=== PATIENT | female | born 1950 | race Caucasian/White ===

== ENCOUNTER 2019-05-24 21:23 | Emergency (ER) | payer MEDICARE, BC, SELFPAY ==
[2019-05-24 21:27] VITALS: BP 171/105; PULSE 96; RESP 20; TEMP 36.4; O2SAT 99; BMI 38.0
[2019-05-24 22:12] VITALS: BP 148/88; PULSE 90; RESP 16; TEMP 36.9; O2SAT 93
[2019-05-24 22:16] VITALS: O2SAT 96
[2019-05-24 22:16] LABS: Basophils % 0.3 %; Eosinophils # 0.1 10^3/uL (0.0-0.8); Eosinophils % 0.6 %; Hematocrit 42.7 % (37.0-47.0); Hemoglobin 13.6 g/dL (11.5-15.3); Lymphocytes # 0.9 10^3/uL (0.8-4.8); Lymphocytes % 10.7 %; Mean Corpuscular HGB Conc 31.9 g/dL (30.0-36.0); Mean Corpuscular Hemoglobin 27.1 pg (28.0-34.0); Mean Corpuscular Volume 85.1 fL (81-99); Monocytes # 0.7 10^3/uL (0.2-0.9); Monocytes % 7.9 %; Neutrophils # 7.1 10^3/uL (1.8-7.7); Neutrophils % 80.3 %; Nucleated Red Blood Cells % 0 %; Platelet Count 212 10^3/cmm (130-400); Red Blood Count 5.02 10^6/uL (4.1-5.3); Red Cell Distribution Width 13.5 % (12.1-15.1); White Blood Count 8.8 10^3/uL (4.0-10.0)
--- NOTE | 2019-05-24 22:25 | W.ED.ABDPA2 ---
HPI - Abdominal Pain General: Chief Complaint: Abdominal Pain Stated Complaint: Sick Time Seen by Provider: 05/24/19 22:20 History of Present Illness: HPI narrative: Patient is a 69-year-old female comes in the ED with nausea, vomiting, right upper quadrant abdominal pain. The pain started on . She had multiple episodes of diarrhea on and Saturday. Patient went to urgent care today and was given a prescription for Zofran. She then had an episode of vomiting right after taking Zofran and eating a doughnut and decided to come to the ED for evaluation. Denies any blood in the diarrhea. Denies any shortness of breath, chest pain, headache, upper respiratory symptoms, dysuria, hematuria, numbness or tingling to extremities, weakness to extremities. Review of Systems General: Reports: 10 or more systems reviewed and unremarkable except in HPI and below PFSH ED PFSH: Statuses (acute, chronic, etc) shown below reflect problem list status as previously entered and may not be historically accurate Social History Smoking and tobacco status: never smoked Alcohol intake: never Physical Exam Narrative: EXAM NARRATIVE: Patient is a 69-year-old female that was sitting comfortably on bed. History of physical exam. She stated she wasn't in any acute pain currently and that her pain had gotten better. Const: COMMON NORMALS: oriented x3 HENMT: COMMON NORMALS: normocephalic HEAD & SCALP: normocephalic MOUTH: oral and palatal mucosa normal THROAT: posterior oropharynx normal and uvula midline Neck/C-Spine: COMMON NORMALS: supple GENERAL: Yes normal visual inspection Resp: COMMON NORMALS: normal respiratory effort, no retractions, no use of accessory muscles and clear to auscultation bilaterally AUSCULTATION: clear to auscultation bilaterally Cardio: COMMON NORMALS: regular rate, regular rhythm, S1 normal heart sound, S2 normal heart sound, no gallops, no clicks and peripheral pulses 2+ throughout RATE: regular rate RHYTHM: regular rhythm HEART SOUNDS: S1 normal, S2 normal and murmur (grade III) systolic PERIPHERAL PULSES: pulses 2+ throughout GI: COMMON NORMALS: normal to inspection, nondistended, normoactive bowel sounds, soft to palpation and no masses PALPATION: Yes soft and Yes tender Details: RUQ : COMMON NORMALS: Yes no CVA tenderness BLADDER/KIDNEY EXAM: Yes no CVA tenderness Back/Pelvis: COMMON NORMALS: no CVA tenderness Extremity: COMMON NORMALS: normal to inspection Neuro: COMMON NORMALS: oriented x3 GAIT: Yes normal gait Skin: COMMON NORMALS: no rashes or lesions noted GENERAL SKIN EXAM: no rashes or lesions noted Course ED course: CT of the abdomen and pelvis showed no acute findings. Following the ED patient's vomiting did stop and was controlled with Zofran. Patient was given IV fluids as well. Right upper quadrant pain improved after GI cocktail. Vital Signs: Vital signs: Vital Signs Temperature 98.5 F 05/24/19 22:12 Pulse Rate 80 05/25/19 02:32 Respiratory Rate 16 05/25/19 02:32 Blood Pressure 135/72 05/25/19 02:32 Pulse Oximetry 98 05/25/19 02:32 MDM - Abdominal Pain Lab Data: Attestation: I reviewed the patient's lab results. Labs: Lab Results 05/24/19 05/24/19 05/24/19 Range/Units 22:08 22:08 22:08 WBC 8.8 (4.0-10.0) 10^3/ uL RBC 5.02 (4.1-5.3) 10^6/u L Hgb 13.6 (11.5-15.3) g/dL Hct 42.7 (37.0-47.0) % MCV 85.1 (81-99) fL MCH 27.1 L (28.0-34.0) pg MCHC 31.9 (30.0-36.0) g/dL RDW 13.5 (12.1-15.1) % Plt Count 212 (130-400) 10^3/c mm MPV 10.0 (7.4-10.4) fL Neut % (Auto) 80.3 % Lymph % (Auto) 10.7 % [place] % (Auto) 7.9 % Eos % (Auto) 0.6 % Baso % (Auto) 0.3 % Neut # (Auto) 7.1 (1.8-7.7) 10^3/u L Lymph # (Auto) 0.9 (0.8-4.8) 10^3/u L [place] # (Auto) 0.7 (0.2-0.9) 10^3/u L Eos # (Auto) 0.1 (0.0-0.8) 10^3/u L Baso # (Auto) 0.0 (0.0-0.1) 10^3/u L Nucleated RBC % (a uto) 0 % Nucleated RBCs # 0.0 /100WBC Sodium 147 H (136-145) mmol/L Potassium 3.7 (3.5-5.1) mmol/L Chloride 104 (98-107) mmol/L Carbon Dioxide 27 (22-29) mmol/L Anion Gap 19.7 H (5-19) BUN 14 (8-23) mg/dL Creatinine 0.9 (0.5-0.9) mg/dL Glucose 117 H (74-106) mg/dL Calcium 9.6 (8.8-10.2) mg/Dl Total Bilirubin 1.2 (0.15-1.2) mg/dL AST 81 H (0-32) U/L ALT 38 H (0-33) U/L Alkaline Phosphata se 127 H (35-105) IU/L Total Protein 7.5 (6.6-8.7) g/dL Albumin 4.3 (3.5-5.2) g/dL Globulin 3.2 (1.3-4.6) g/dL Lipase (13-60) U/L Urine Color (Yellow) Urine Appearance (CLEAR) Urine pH (5-7) Ur Specific Gravit y (1.005-1.030) Urine Protein (Negative) Urine Glucose (UA) (Normal) Urine Ketones (Negative) Urine Occult Blood (Negative) Urine Nitrate (Negative) Urine Bilirubin (NEGATIVE) Urine Urobilinogen (Negative) mg/dL Ur Leukocyte Marivel ase (Negative) H. pylori IgG Anti body Negative (Negative) 05/24/19 05/25/19 Range/Units 22:08 00:58 WBC (4.0-10.0) 10^3/ uL RBC (4.1-5.3) 10^6/u L Hgb (11.5-15.3) g/dL Hct (37.0-47.0) % MCV (81-99) fL MCH (28.0-34.0) pg MCHC (30.0-36.0) g/dL RDW (12.1-15.1) % Plt Count (130-400) 10^3/c mm MPV (7.4-10.4) fL Neut % (Auto) % Lymph % (Auto) % [place] % (Auto) % Eos % (Auto) % Baso % (Auto) % Neut # (Auto) (1.8-7.7) 10^3/u L Lymph # (Auto) (0.8-4.8) 10^3/u L [place] # (Auto) (0.2-0.9) 10^3/u L Eos # (Auto) (0.0-0.8) 10^3/u L Baso # (Auto) (0.0-0.1) 10^3/u L Nucleated RBC % (a uto) % Nucleated RBCs # /100WBC Sodium (136-145) mmol/L Potassium (3.5-5.1) mmol/L Chloride (98-107) mmol/L Carbon Dioxide (22-29) mmol/L Anion Gap (5-19) BUN (8-23) mg/dL Creatinine (0.5-0.9) mg/dL Glucose (74-106) mg/dL Calcium (8.8-10.2) mg/Dl Total Bilirubin (0.15-1.2) mg/dL AST (0-32) U/L ALT (0-33) U/L Alkaline Phosphata se (35-105) IU/L Total Protein (6.6-8.7) g/dL Albumin (3.5-5.2) g/dL Globulin (1.3-4.6) g/dL Lipase 64 H (13-60) U/L Urine Color Yellow (Yellow) Urine Appearance Clear (CLEAR) Urine pH 6 (5-7) Ur Specific Gravit y 1.010 (1.005-1.030) Urine Protein Neg (Negative) Urine Glucose (UA) Norm (Normal) Urine Ketones Negative (Negative) Urine Occult Blood Neg (Negative) Urine Nitrate Negative (Negative) Urine Bilirubin Neg (NEGATIVE) Urine Urobilinogen Norm (Negative) mg/dL Ur Leukocyte Marivel ase Negative (Negative) H. pylori IgG Anti body (Negative) Discharge Plan Discharge Patient Disposition: Home, Self-Care Clinical Impression: Nausea & vomiting Qualifiers: Vomiting type: unspecified Vomiting Intractability: non-intractable Qualified Code(s): R11.2 - Nausea with vomiting, unspecified Abdominal pain Qualifiers: Abdominal location: right upper quadrant Qualified Code(s): R10.11 - Right upper quadrant pain Condition: Stable Prescriptions: No Action No Known Home Medications RF: 0 ondansetron HCl [Zofran] 4 mg tablet 4 mg PO Q6H PRN (Reason: nausea and vomiting) Qty: 20 RF: 0 Discharge Orders: Discharge Order (Routine); Ordered 05/25/19 Ordered By: Doug Ramirez Referrals: , [Primary Care Provider] - David John MD [Family Provider] - Discharge Diet: Advance as tolerated Discharge Activity: Resume usual activity Patient Instructions: Abdominal Pain (ED) Activity Restrictions/Additional Instructions: Follow-up with the primary care doctor in 5-7 days for reevaluation. Take previously prescribed Zofran as needed for nausea. Take Maalox or Pepto-Bismol for indigestion or epigastric pain. Drink plenty of fluids. 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
[2019-05-24 22:33] LABS: Alanine Aminotransferase 38 U/L (0-33); Albumin Level 4.3 g/dL (3.5-5.2); Alkaline Phosphatase 127 IU/L (35-105); Anion Gap 19.7 (5-19); Aspartate Amino Transferase 81 U/L (0-32); Blood Urea Nitrogen 14 mg/dL (8-23); Calcium 9.6 mg/Dl (8.8-10.2); Carbon Dioxide 27 mmol/L (22-29); Chloride 104 mmol/L (98-107); Globulin 3.2 g/dL (1.3-4.6); Glucose 117 mg/dL (74-106); Potassium 3.7 mmol/L (3.5-5.1); Sodium 147 mmol/L (136-145); Total Bilirubin 1.2 mg/dL (0.15-1.2); Total Protein 7.5 g/dL (6.6-8.7)
--- NOTE | 2019-05-24 23:20 | CTR_ITS ---
PROCEDURE INFORMATION: Exam: CT Abdomen And Pelvis With Contrast Exam date and time: 05/24/2019 11:28 PM Age: 69 years old Clinical indication: Abdominal pain; Localized; Right upper quadrant (ruq); Additional info: Ruq pain, nausea and vomiting TECHNIQUE: Imaging protocol: Computed tomography of the abdomen and pelvis with intravenous contrast. Total DLP: 1474.11 mGy-cm Radiation optimization: All CT scans at this facility use at least one of these dose optimization techniques: automated exposure control; mA and/or kV adjustment per patient size (includes targeted exams where dose is matched to clinical indication); or iterative reconstruction. Contrast material: OMNIPAQUE 300; Contrast volume: 95 ml; Contrast route: IV; COMPARISON: CT abdomen pelvis wo con [id number] 12/09/2018 9:51 AM FINDINGS: Liver: Normal. No mass. Gallbladder and bile ducts: Gallbladder is absent. Pancreas: Normal. No ductal dilation. Spleen: Normal. No splenomegaly. Adrenals: Normal. No mass. Kidneys and ureters: Left kidney nonobstructive calyceal stone. Stomach and bowel: Unremarkable. No obstruction. No mucosal thickening. Appendix: No evidence of appendicitis. Intraperitoneal space: Unremarkable. No free air. No significant fluid collection. Vasculature: Unremarkable. No abdominal aortic aneurysm. Lymph nodes: Unremarkable. No enlarged lymph nodes. Bladder: Unremarkable as visualized. Reproductive: Unremarkable as visualized. Bones/joints: Unremarkable. No acute fracture. Soft tissues: Unremarkable. CT/CT abdomen pelvis w con* [id number] IMPRESSION: 1. Negative for acute inflammatory process. 2. Left kidney nonobstructive calyceal stone. 3. Gallbladder is absent. Radiation Dose CTDIVOL = (mGy): DLP = 1474.11 (mGy-cm)
[2019-05-24] MEDS: sodium chloride 0.9% 1,000 ML 750 ML IV (23:47)
[2019-05-24 23:49] VITALS: BP 149/86; PULSE 74; RESP 16; O2SAT 94
[2019-05-24] MEDS: ondansetron 2 mg/ML SDV 2 mL 4 MG IVP (23:49)
[2019-05-24] MEDS: iohexol 300 mg/mL 100 mL Btl IV (23:51)
[2019-05-25 00:28] VITALS: BP 144/76; PULSE 84; RESP 18; O2SAT 97
[2019-05-25 00:29] LABS: Lipase 64 U/L (13-60)
[2019-05-25 00:53] LABS: H. Pylori IgG Antibody Negative (Negative)
[2019-05-25 00:57] VITALS: BP 148/71; PULSE 82; RESP 16; O2SAT 98
[2019-05-25 01:11] VITALS: BP 147/70; PULSE 76; RESP 16; O2SAT 97
[2019-05-25 01:11] LABS: Add Urine Microscopic? NO
[2019-05-25 01:28] LABS: Bilirubin Urine Neg (NEGATIVE); Blood Urine Neg (Negative); Glucose Urine UA Norm (Normal); Ketones Urine Negative (Negative); Leukocyte Esterase Urine Negative (Negative); Nitrate Urine Negative (Negative); Protein Urine Neg (Negative); Urine Appearance Clear (CLEAR); Urine Color Yellow (Yellow); Urobilinogen Urine Norm (Negative); pH Urine 6 (5-7)
[2019-05-25 01:45] VITALS: BP 132/75; PULSE 78; RESP 16; O2SAT 96
[2019-05-25 02:32] VITALS: BP 135/72; PULSE 80; RESP 16; O2SAT 98
== END 2019-05-25 02:33 | disposition home or self-care (01) ==
PROVIDERS: Family Medicine; Emergency Provider Physician Assistant; Family Provider Family Medicine
DX: R10.11 Right upper quadrant pain (principal); R11.2 Nausea with vomiting, unspecified
CPT/HCPCS: 74177; 80053; 81003; 83690; 85025; 86677; 96360; 96374; 99282; J2405; J7030; Q9967

== ENCOUNTER → 2020-12-13 09:44 | Outpatient (BNVA) | payer MEDICARE, BC, SELFPAY | PROVIDERS: Family Provider Family Medicine; PCP Family Medicine; Visit Provider Orthopaedic Surgery | DX: M17.11 Unilateral primary osteoarthritis, right knee (principal) | CPT/HCPCS: 73560; 73565 ==

== ENCOUNTER → 2020-12-19 11:42 | Outpatient (BNVA) | payer MEDICARE, BC, SELFPAY | PROVIDERS: Family Provider Family Medicine; PCP Family Medicine; Visit Provider Family Medicine | DX: Z13.220 Encounter for screening for lipoid disorders (principal); Z13.6 Encounter for screening for cardiovascular disorders; Z76.89 Persons encountering health services in other specified circumstances; R10.11 Right upper quadrant pain; H81.10 Benign paroxysmal vertigo, unspecified ear; L57.0 Actinic keratosis; M79.604 Pain in right leg; R01.1 Cardiac murmur, unspecified; Z68.37 Body mass index [BMI] 37.0-37.9, adult; Z71.89 Other specified counseling | CPT/HCPCS: 80053; 84443; 85025 ==

== ENCOUNTER 2020-12-29 10:21 | Outpatient (RCR) | payer MEDICARE, BC, SELFPAY | END 2021-01-10 23:59 | disposition home or self-care (01) | LOC: SPT 10:21 | PROVIDERS: PCP Family Medicine; Visit Provider Family Medicine | DX: H81.10 Benign paroxysmal vertigo, unspecified ear (principal) | CPT/HCPCS: 95992; 97162 ==

== ENCOUNTER 2021-01-11 12:29 | Outpatient (CLI) | payer MEDICARE, BC, SELFPAY ==
--- NOTE | 2021-01-11 13:30 | USCV_ITS ---
Carolina Lockhart Age: 70 Gender: F : 1950 Exam Date: 01/11/2021 13:08 Ordering Phys: Drew Moscoso DO Technologist: Silva Cazares Exam Location: [facility] – [place] Indication: CHEST PAIN BP: / HR: 69 Rhythm: Sinus Technical Quality: Adequate MEASUREMENTS (Male / Female) Normal Values 2D ECHO LV Diastolic Diameter PLAX 3.7 cm 4.2 - 5.9 / 3.9 - 5.3 cm LV Systolic Diameter PLAX 2.2 cm IVS Diastolic Thickness 1.1 cm 0.6 - 1.0 / 0.6 - 0.9 cm IVS Systolic Thickness 1.1 cm LVPW Diastolic Thickness 1.3 cm 0.6 - 1.0 / 0.6 - 0.9 cm LVPW Systolic Thickness 1.6 cm LVOT Diameter 2.1 cm LV Ejection Fraction 2D Teich 73.9 % LV Ejection Fraction MOD 2C 54.6 % LV Ejection Fraction 2C AL 58.7 % LA Diameter 3.0 cm LA Width 3.2 cm LA Height 4.0 cm RA Width 3.5 cm RA Height 2.4 cm Aorta at Sinotubular Diameter 2.9 cm M-MODE LV Diastolic Diameter MM 5.1 cm 4.2 - 5.9 / 3.9 - 5.3 cm LV Systolic Diameter MM 3.3 cm LV Ejection Fraction MM Teich 64.2 % IVS Diastolic Thickness MM 1.2 cm 0.6 - 1.0 / 0.6 - 0.9 cm IVS Systolic Thickness MM 1.8 cm LVPW Diastolic Thickness MM 1.3 cm 0.6 - 1.0 / 0.6 - 0.9 cm LVPW Systolic Thickness MM 1.7 cm Aortic Annulus Diameter 2.8 cm LA Ao Ratio MM 1.2 MV E Point Septal Separation 0.3 cm DOPPLER AV Peak Velocity 260.0 cm/s LVOT Peak Velocity 138.0 cm/s AV Area Cont Eq vti 1.8 cm squared AV Area Cont Eq pk 1.8 cm squared MV Area PHT 3.0 cm squared Mitral E to A Ratio 0.9 MV E' Velocity 67.5 cm/s Mitral E to MV E' Ratio 18.4 Mitral E to LV E' Lateral Ratio 16.3 Mitral E to LV E' Septal Ratio 21.1 TR Peak Velocity 245.2 cm/s TR Peak Gradient 24.0 mmHg TR Mean Velocity 191.0 cm/s TR Mean Gradient 16.4 mmHg TR Velocity Time Integral 78.3 cm TV Peak E Velocity 67.0 cm/s Right Atrial Pressure 3.0 mmHg Pulmonary Artery Systolic Pressu 27.0 mmHg PV Peak Velocity 108.0 cm/s RV Acceleration Time 0.1 s RV Ejection Time 0.3 s RV AcT/ET 0.3 FINDINGS Left Ventricle Normal left ventricular size, increased left ventricular wall thickness and systolic function with no regional wall motion abnormalities. Left ventricular ejection fraction is estimated at 65 %. Grade II diastolic dysfunction, moderately elevated filling pressures. Right Ventricle Normal right ventricular size and systolic function, RVSP 35 mmHg. Right Atrium Mildly increased right atrial size. Left Atrium Moderately increased left atrial size. Mitral Valve Severe mitral annular calcification. Thickened mitral valve. No mitral valve stenosis. Mild mitral valve regurgitation. Aortic Valve Moderately thickened and calcified aortic valve. Aortic valve visually appears moderately stenotic. Mild aortic valve stenosis, peak velocity 2.6 m/sec, peak gradient 27 mm Hg, mean gradient 15.4 mmHg, JULIANNE 1.8 cm squared. [id number] aortic valve regurgitation. Tricuspid Valve Structurally normal tricuspid valve. Mild tricuspid valve regurgitation. Pulmonic Valve Pulmonic valve not well visualized. No pulmonary valve stenosis. Pericardium No pericardial effusion. Aorta Normal size aortic root. Normal sized inferior vena cava. CONCLUSIONS 1. Normal left ventricular size, increased left ventricular wall thickness and systolic function with no regional wall motion abnormalities. Left ventricular ejection fraction is estimated at 65 %. Grade II diastolic dysfunction, moderately elevated filling pressures. 2. Aortic valve visually appears moderately stenotic. Mild aortic valve stenosis, peak velocity 2.6 m/sec, peak gradient 27 mm Hg, mean gradient 15.4 mmHg, JULIANNE 1.8 cm squared. Tvjx-ud-tmwlzhfn aortic valve regurgitation. 3. Mild mitral and tricuspid valve regurgitation. 4. Moderately increased left atrial size. 5. Mild pulmonary hypertension with pulmonary artery pressure estimated at 35 mm Hg. 6. When compared to previous echocardiogram dated 10/09/2016, there is aortic valve stenosis now. Jessica Pratt MD (Electronically Signed) Final Date: 12 January 2021 21:20 S
== END 2021-01-11 12:30 | disposition home or self-care (01) ==
PROVIDERS: PCP Family Medicine; Visit Provider Family Medicine
DX: R01.1 Cardiac murmur, unspecified (principal); R07.9 Chest pain, unspecified; I35.0 Nonrheumatic aortic (valve) stenosis; I34.0 Nonrheumatic mitral (valve) insufficiency; I07.1 Rheumatic tricuspid insufficiency; I27.20 Pulmonary hypertension, unspecified
CPT/HCPCS: 93306

== ENCOUNTER 2021-07-12 00:32 | Emergency (ER) | payer MEDICARE, BC, SELFPAY ==
[2021-07-12 00:39] VITALS: BP 146/85; PULSE 69; RESP 18; TEMP 36.6; O2SAT 97; BMI 36.3
--- NOTE | 2021-07-12 01:03 | XRR_ITS ---
PROCEDURE INFORMATION: Exam: XR Chest Exam date and time: 07/12/2021 1:03 AM Age: 71 years old Clinical indication: Patient HX: Dizziness with n/v. ; Additional info: Dizzy TECHNIQUE: Imaging protocol: XR of the chest. Views: 1 view. COMPARISON: CR Chest 1 [place] [id number] 06/21/2017 4:51 PM FINDINGS: Lungs: Moderately hyperaerated lungs consistent with deep inspiratory effort vs significant reactive airway disease vs moderate COPD . Pleural spaces: Unremarkable. No pleural effusion. No pneumothorax. Heart/Mediastinum: Unremarkable. No cardiomegaly. Bones/joints: Moderate thoracic spondylosis. Bilateral mild primary glenohumeral osteoarthritis. Left calcific tendinosis. XR/XR chest 1V portable [id number] IMPRESSION: Moderately hyperaerated lungs consistent with deep inspiratory effort vs significant reactive airway disease vs moderate COPD .
--- NOTE | 2021-07-12 01:03 | CTR_ITS ---
PROCEDURE INFORMATION: Exam: CT Head Without Contrast Exam date and time: 07/12/2021 1:03 AM Age: 71 years old Clinical indication: Patient HX: C/O worsening dizziness with n/v. History of bppv. ; Additional info: Dizzy TECHNIQUE: Imaging protocol: Computed tomography of the head without contrast. Radiation optimization: All CT scans at this facility use at least one of these dose optimization techniques: automated exposure control; mA and/or kV adjustment per patient size (includes targeted exams where dose is matched to clinical indication); or iterative reconstruction. COMPARISON: No relevant prior studies available. RADIATION DOSE METRICS: Total DLP (mGy-cm): 764.45 FINDINGS: Brain: Normal. No hemorrhage. Unremarkable white matter. No mass effect. Cerebral ventricles: No ventriculomegaly. Paranasal sinuses: Visualized sinuses are unremarkable. No fluid levels. Mastoid air cells: Visualized mastoid air cells are well aerated. Vasculature: Moderate calcified intracranial atherosclerotic vessel disease. Bones/joints: Unremarkable. No acute fracture. Soft tissues: Unremarkable. CT/CT head wo con* [id number] IMPRESSION: No acute intracranial findings.
--- NOTE | 2021-07-12 01:03 | ECG_ITS ---
[facility] Test Date: 2021-07-12 Pat Name: Carolina Lockhart Department: Room: Gender: Female K[employer]: : 1950 Requested By: Mari Brower Order Number: [id number] Shanna MD: Pepe Rao M.D. Measurements Intervals [place] Rate: 62 P: 56 WA: 146 QRS: 21 QRSD: 94 T: 55 QT: 445 QTc: 454 Interpretive Statements SINUS RHYTHM Compared to ECG 06/21/2017 19:33:29 No significant changes Electronically Signed On 07-12-2021 16:01:09 CHANNEL LAYER by Pepe Rao M.D. [email or web address]
--- NOTE | 2021-07-12 01:03 | CTR_ITS ---
PROCEDURE INFORMATION: Exam: CT Angiography Head With Contrast, Arteriography Exam date and time: 07/12/2021 1:03 AM Age: 71 years old Clinical indication: Dizziness and giddiness; Patient HX: C/O worsening dizziness with n/v. History of bppv. ; Additional info: Dizzy TECHNIQUE: Imaging protocol: Computed tomography angiography of the head with contrast. Exam focused on the arteries. 3D rendering (Not supervised by radiologist): MIP and/or 3D reconstructed images were created by the technologist. Radiation optimization: All CT scans at this facility use at least one of these dose optimization techniques: automated exposure control; mA and/or kV adjustment per patient size (includes targeted exams where dose is matched to clinical indication); or iterative reconstruction. Contrast material: OMNI 350; Contrast volume: 95 ml; Contrast route: INTRAVENOUS (IV); COMPARISON: CT head wo con* [id number] 07/12/2021 1:51 AM RADIATION DOSE METRICS: Total DLP (mGy-cm): 2092.92 FINDINGS: ANTERIOR CIRCULATION: Right internal carotid artery: Calcified plaque in the right cavernous ICA without significant stenosis. Right middle cerebral artery: Unremarkable. No occlusion or significant stenosis. No aneurysm. Right anterior cerebral artery: Dominant right A1 segment. Probable aplastic left A1 segment. Normal variant. Anterior communicating artery: Patent anterior communicating artery. Left internal carotid artery: Calcified plaque in the left cavernous ICA without significant stenosis. Left middle cerebral artery: Unremarkable. No occlusion or significant stenosis. No aneurysm. Left anterior cerebral artery: See Right anterior cerebral artery finding. POSTERIOR CIRCULATION: Right vertebral artery: Unremarkable. No occlusion or significant stenosis. No aneurysm. Left vertebral artery: Unremarkable. No occlusion or significant stenosis. No aneurysm. Basilar artery: Unremarkable. No occlusion or significant stenosis. No aneurysm. Right posterior cerebral artery: Unremarkable. No occlusion or significant stenosis. No aneurysm. Left posterior cerebral artery: Unremarkable. No occlusion or significant stenosis. No aneurysm. Veins: Venous contamination at the level of the [place]. Brain: No definite mass, mass effect, or midline shift. Cerebral ventricles: No ventriculomegaly. Bones/joints: Unremarkable. No acute fracture. Soft tissues: Unremarkable. PROCEDURE INFORMATION: Exam: CT Angiography Neck With Contrast Exam date and time: 07/12/2021 1:03 AM Age: 71 years old Clinical indication: Dizziness and giddiness; Patient HX: C/O worsening dizziness with n/v. History of bppv. ; Additional info: Dizzy TECHNIQUE: Imaging protocol: Computed tomography angiography of the neck with contrast. 3D rendering (Not supervised by radiologist): MIP and/or 3D reconstructed images were created by the technologist. Radiation optimization: All CT scans at this facility use at least one of these dose optimization techniques: automated exposure control; mA and/or kV adjustment per patient size (includes targeted exams where dose is matched to clinical indication); or iterative reconstruction. Contrast material: OMNI 350; Contrast volume: 95 ml; Contrast route: INTRAVENOUS (IV); COMPARISON: CT head wo con* [id number] 07/12/2021 1:51 AM RADIATION DOSE METRICS: Total DLP (mGy-cm): 2091.92 FINDINGS: Right common carotid artery: No stenosis. No dissection or occlusion. Right internal carotid artery: No ICA stenosis by NASCET/SRU criteria. Right carotid bifurcation calcified plaque. S-shaped tortuosity of the right ICA Right external carotid artery: No occlusion or stenosis of the origin. Left common carotid artery: No stenosis. No dissection or occlusion. Left internal carotid artery: S-shaped tortuosity of the left ICA. Left external carotid artery: No occlusion or stenosis of the origin. Left callosomarginal artery: Moderate to severe multilevel spine degenerative changes including degenerative disc disease, spondylosis and facet degenerative changes. Right vertebral artery: Dominant right vertebral artery with patent left vertebral artery. Left vertebral artery: No stenosis. No dissection or occlusion. Aorta: Direct origin of the left vertebral artery from the aortic arch which is a normal variant seen in 1% of the population. Calcification of the thoracic aorta and/or great vessels consistent with atherosclerotic vessel disease. Lymph nodes: Calcified right hilar nodes and/or mediastinal nodes and/or lung granulomas consistent with old granulomatous disease. Soft tissues: Normal. No significant soft tissue swelling. Bones/joints: No acute fracture. Multilevel disc findings: Moderate thoracic spondylosis. CT/CT angio headneck* [id number] IMPRESSION: 1. No large vessel occlusion. 2. The right A1 segment supplies both anterior cerebral arteries with probable aplastic left A1 segment. Normal variant. IMPRESSION: 1. Dominant right vertebral artery with patent left vertebral artery. 2. No ICA stenosis by NASCET/SRU criteria. REFERENCES: NASCET CRITERIA. The degree of internal carotid artery stenosis is based on NASCET criteria. Normal is no stenosis. Mild is less than 50% stenosis. Moderate is 50-69% stenosis. Severe is 70% to 99% stenosis. Total occlusion is no detectable patent lumen.
[2021-07-12] MEDS: sodium chloride 0.9% 500 ML 999 ML IV (01:05)
[2021-07-12] MEDS: meclizine 25 mg tablet 50 MG PO (01:05)
[2021-07-12] MEDS: ondansetron 2 mg/ML SDV 2 mL 4 MG IVP (01:05)
[2021-07-12 01:08] LABS: Basophils # 0.1 10^3/uL (0.0-0.1); Eosinophils # 0.1 10^3/uL (0.0-0.8); Eosinophils % 1.7 %; Hematocrit 41.6 % (37.0-47.0); Hemoglobin 12.9 g/dL (11.5-15.3); Lymphocytes # 1.1 10^3/uL (0.8-4.8); Lymphocytes % 13.8 %; Mean Corpuscular Hemoglobin 27.6 pg (28.0-34.0); Mean Corpuscular Volume 88.9 fl (81-99); Mean Platelet Volume 9.9 fL (7.4-10.4); Monocytes # 0.6 10^3/uL (0.2-0.9); Monocytes % 7.6 %; Neutrophils % 75.6 %; Nucleated Red Blood Cells % 0 %; Platelet Count 192 10^3/cmm (130-400); Red Blood Count 4.68 10^6/uL (4.1-5.3); Red Cell Distribution Width 13.5 % (12.1-15.1); White Blood Count 7.7 10^3/uL (4.0-10.0)
[2021-07-12 01:30] LABS: Alanine Aminotransferase 10 U/L (0-33); Albumin Level 4.2 g/dL (3.5-5.2); Alkaline Phosphatase 88 IU/L (35-105); Anion Gap 12.5 (5-19); Aspartate Amino Transferase 23 U/L (0-32); Blood Urea Nitrogen 10 mg/dL (8-23); Calcium 8.6 mg/dL (8.5-10.5); Carbon Dioxide 31 mmol/L (22-29); Chloride 99 mmol/L (98-107); Globulin 2.5 g/dL (1.3-4.6); Glucose 115 mg/dL (65-115); Osmolality Calculated 286 mOsm/kg (285-295); Potassium 4.5 mmol/L (3.5-5.1); Sodium 138 mmol/L (136-145); Total Bilirubin 0.6 mg/dL (0.15-1.2); Total Protein 6.7 g/dL (6.6-8.7)
[2021-07-12] MEDS: iohexol 350 mg/mL 100 mL Btl IV (01:51)
--- NOTE | 2021-07-12 01:57 | ED_ITS ---
HPI - Dizziness General: Chief Complaint: Dizziness Stated Complaint: N/V dizzy Time Seen by Provider: 07/12/21 00:56 Source: patient Mode of arrival: ambulatory Limitations: no limitations History of Present Illness: HPI Narrative: 71-year-old female states that she went to bed at 8 PM and woke up and was having some vertigo along with ataxia. States she has had some ongoing vertigo for the last 2 days and was what much worse when she woke up at around 11. States she has been having a hard time walking without feeling like she is going to fall. States it is much worse with sudden movements improved with rest. Denies headache denies any head injuries Associated symptoms: Denies chest pain, chills, headache(s), nausea or vomiting Review of Systems Const: Denies: fever(s), chills, body aches or change in appetite Eyes: Denies: blurry vision or eye discomfort ENMT: Denies: throat pain or dental pain Card: Denies: chest pain Resp: Denies: dyspnea GI: Denies: abdominal pain, nausea, vomiting or diarrhea : Denies: dysuria Musc: Denies: neck pain or back pain Skin/Breast: Denies: rash Neuro: Reports: vertigo; Denies: headache(s) Psych: Denies: depression Ezio/Lymph: Denies: easy bruising All/Imm: Denies: urticaria PFSH ED PFSH: Social History Alcohol intake: never Physical Exam Const: COMMON NORMALS: patient oriented x3 and healthy appearing HENMT: COMMON NORMALS: normocephalic and atraumatic HEAD & SCALP: normoc ephalic and atraumatic Eye: COMMON NORMALS: Equal, round and reactive pupils present and EOMs intact bilaterally PUPIL: Yes Equal, round and reactive pupils present Neck/C-Spine: COMMON NORMALS: full ROM and supple Chest: COMMONS NORMALS: normal inspection of the chest and normal palpation of entire chest wall Resp: COMMON NORMALS: normal respiratory effort, No retractions, No use of accessory muscles and clear to auscultation bilaterally AUSCULTATION: clear to auscultation bilaterally Cardio: COMMON NORMALS: regular rate, regular rhythm and No murmurs present (Cardio) RATE: regular rate RHYTHM: regular rhythm GI: COMMON NORMALS: Normal to inspection, nondistended, normoactive bowel sounds present, Soft to palpation, non-tender and no masses PALPATION: Yes Soft to palpation Extremity: COMMON NORMALS: normal to inspection and full ROM Neuro: COMMON NORMALS: patient oriented x3, moves all extremities and no focal motor deficits GAIT: Yes Ataxic gait present MOTOR EXAM: 5/5 motor strength present throughout Psych: COMMON NORMALS: mental status grossly normal, Normal thought process present and cooperative THOUGHT PROCESS: Normal thought process present Skin: COMMON NORMALS: no rashes or lesions noted and no wounds GENERAL SKIN EXAM: no rashes or lesions noted Course Vital Signs: Vital signs: Vital Signs Temperature 98 F 07/12/21 00:39 Pulse Rate 69 07/12/21 00:39 Respiratory Rate 18 07/12/21 00:39 Blood Pressure 146/85 07/12/21 00:39 Pulse Oximetry 97 07/12/21 00:39 MDM - Dizziness Medical Decision Making Patient presents here with vertigo her symptoms have improved here with meclizine I ambulated her in the room and she ambulated well no ataxia. Due to her age I did offer her admission for an MRI states she felt improved and would just follow-up with her primary care doctor and return if she has worsening will place her on meclizine at home she is to follow-up with This week and return if worsening she understands agrees to plan. Lab Data : 07/12/21 01:01 07/12/21 01:01 Radiology Impressions Chest X-Ray 07/12/21 01:03 IMPRESSION: Moderately hyperaerated lungs consistent with deep inspiratory effort vs significant reactive airway disease vs moderate COPD . Head CT 07/12/21 01:03 IMPRESSION: No acute intracranial findings. Head/Neck CTA 07/12/21 01:03 IMPRESSION: 1. No large vessel occlusion. 2. The right A1 segment supplies both anterior cerebral arteries with probable aplastic left A1 segment. Normal variant. IMPRESSION: 1. Dominant right vertebral artery with patent left vertebral artery. 2. No ICA stenosis by NASCET/SRU criteria. REFERENCES: NASCET CRITERIA. The degree of internal carotid artery stenosis is based on NASCET criteria. Normal is no stenosis. Mild is less than 50% stenosis. Moderate is 50-69% stenosis. Severe is 70% to 99% stenosis. Total occlusion is no detectable patent lumen. Laboratory Results WBC 7.7 10^3/uL (4.0-10.0) 07/12/21 01:01 RBC 4.68 10^6/uL (4.1-5.3) 07/12/21 01:01 Hgb 12.9 g/dL (11.5-15.3) 07/12/21 01:01 Hct 41.6 % (37.0-47.0) 07/12/21 01:01 MCV 88.9 fl (81-99) 07/12/21 01:01 MCH 27.6 pg (28.0-34.0) L 07/12/21 01:01 MCHC 31.0 g/dL (30.0-36.0) 07/12/21 01:01 RDW 13.5 % (12.1-15.1) 07/12/21 01:01 Plt Count 192 10^3/cmm (130-400) 07/12/21 01:01 MPV 9.9 fL (7.4-10.4) 07/12/21 01:01 Neut % (Auto) 75.6 % 07/12/21 01:01 Lymph % (Auto) 13.8 % 07/12/21 01:01 [place] % (Auto) 7.6 % 07/12/21 01:01 Eos % (Auto) 1.7 % 07/12/21 01:01 Baso % (Auto) 1.0 % 07/12/21 01:01 Neut # (Auto) 5.80 10^3/uL (1.8-7.7) 07/12/21 01:01 Lymph # (Auto) 1.1 10^3/uL (0.8-4.8) 07/12/21 01:01 [place] # (Auto) 0.6 10^3/uL (0.2-0.9) 07/12/21 01:01 Eos # (Auto) 0.1 10^3/uL (0.0-0.8) 07/12/21 01:01 Baso # (Auto) 0.1 10^3/uL (0.0-0.1) 07/12/21 01:01 Nucleated RBC % (auto) 0 % 07/12/21 01:01 Nucleated RBCs # 0.0 /100WBC 07/12/21 01:01 Sodium 138 mmol/L (136-145) 07/12/21 01:01 Potassium 4.5 mmol/L (3.5-5.1) 07/12/21 01:01 Chloride 99 mmol/L (98-107) 07/12/21 01:01 Carbon Dioxide 31 mmol/L (22-29) H 07/12/21 01:01 Anion Gap 12.5 (5-19) 07/12/21 01:01 BUN 10 mg/dL (8-23) 07/12/21 01:01 Creatinine 0.9 mg/dL (0.5-0.9) 07/12/21 01:01 GFR Calculation Not Reportable 07/12/21 01:01 Glucose 115 mg/dL (65-115) 07/12/21 01:01 Calculated Osmolality 286 mOsm/kg (285-295) 07/12/21 01:01 Calcium 8.6 mg/dL (8.5-10.5) 07/12/21 01:01 Total Bilirubin 0.6 mg/dL (0.15-1.2) 07/12/21 01:01 AST 23 U/L (0-32) 07/12/21 01:01 ALT 10 U/L (0-33) 07/12/21 01:01 Alkaline Phosphatase 88 IU/L (35-105) 07/12/21 01:01 Total Protein 6.7 g/dL (6.6-8.7) 07/12/21 01:01 Albumin 4.2 g/dL (3.5-5.2) 07/12/21 01:01 Globulin 2.5 g/dL (1.3-4.6) 07/12/21 01:01 Urine Color Yellow (Yellow) 07/12/21 02:12 Urine Appearance Clear (CLEAR) 07/12/21 02:12 Urine pH 7 (5-7) 07/12/21 02:12 Ur Specific [place] 1.005 (1.005-1.030) 07/12/21 02:12 Urine Protein Neg (Negative) 07/12/21 02:12 Urine Glucose (UA) Norm (Normal) 07/12/21 02:12 Urine Ketones Negative (Negative) 07/12/21 02:12 Urine Blood Neg (Negative) 07/12/21 02:12 Urine Nitrate Negative (Negative) 07/12/21 02:12 Urine Bilirubin Neg (Negative) 07/12/21 02:12 Urine Urobilinogen Norm mg/dL (Negative) 07/12/21 02:12 Ur Leukocyte Esterase Negative (Negative) 07/12/21 02:12 EKG Data EKG 1: I personally reviewed and interpreted this EKG as follows: EKG interpretation date: 07/12/21 EKG interpretation time: 01:42 Interpretation: Normal sinus rhythm heart rate [address] or T wave abnormalities QRS 94 QTC 451 Discharge Plan Discharge Patient Disposition: Home Clinical Impression: Vertigo Condition: Stable Prescriptions: New meclizine 25 mg tablet 25 mg PO TID PRN (Reason: dizziness) Qty: 20 0RF No Action methylprednisolone [Medrol ([place])] 4 mg tablets,dose pack See Rx Instructions PO PER PKG DIR 6 Days Qty: 21 0RF Rx Instructions: PO PER PKG DIR albuterol sulfate [Ventolin HFA] 90 mcg/actuation HFA aerosol inhaler 2 puff inhalation Q6H PRN (Reason: shortness of breath or wheezing) Qty: 6.7 0RF Discharge Orders: Discharge ED (Routine); Ordered 07/12/21 Ordered By: Mari Brower Referrals: Drew Moscoso DO [Primary Care Provider] - 1-3 days Discharge Diet: Advance as tolerated Discharge Activity: Resume usual activity Coding Level of Care Code ED Assistant Store Manager Operations for Chg Fwd Exam Comprehensive NIH stroke score NIHSS Level Of Consciousness - 1a: 0 Level Of Consciousness Questions - 1b: Both Correct Level Of Consciousness Commands - 1c: Both Correct Best Gaze - 2: Normal Visual Rodriguez - 3: No Visual Loss Facial Palsy - 4: Normal Motor Arm Right - 5: No Drift Motor Arm Left - 5: No Drift Motor Leg Right - 6: No Drift Motor Leg Left - 6: No Drift Limb Ataxia - 7: Absent Sensory - 8: Normal Best Language - 9: No Aphasia Dysarthia - 10: Normal Extinction And Inattention - 11: 0 Score Total Score: 0
[2021-07-12 02:31] LABS: Add Urine Microscopic? NO; Charge for UA Resulting for Rev
[2021-07-12 02:32] LABS: Bilirubin Urine Neg (Negative); Blood Urine Neg (Negative); Glucose Urine UA Norm (Normal); Ketones Urine Negative (Negative); Leukocyte Esterase Urine Negative (Negative); Nitrate Urine Negative (Negative); Protein Urine Neg (Negative); Specific Gravity, Urine 1.005 (1.005-1.030); Urine Appearance Clear (CLEAR); Urine Color Yellow (Yellow); Urobilinogen Urine Norm (Negative); pH Urine 7 (5-7)
== END 2021-07-12 03:31 | disposition home or self-care (01) ==
PROVIDERS: Nurse Practitioner Family; Emergency Provider Emergency Medicine; PCP Family Medicine
DX: R42 Dizziness and giddiness (principal)
CPT/HCPCS: 70450; 70496; 70498; 71045; 80053; 81003; 85025; 93005; 96374; 99284; J2405; J7040; J8597; Q9967

== ENCOUNTER 2021-11-03 14:34 | Outpatient (CLI) | payer MEDICARE, BC, SELFPAY ==
--- NOTE | 2021-11-03 14:52 | CT_ITS ---
WS: [id number] CT ABDOMEN AND PELVIS NONCONTRAST HISTORY: LEFT SIDE KIDNEY STONE TECHNIQUE: Imaging performed through the abdomen and pelvis. Coronal and sagittal reformats are submi tted. All CT scans at [facility] use at least one of these dose optimization techniques: auto mated exposure control; mA and/or kV adjustment per patient size (includes targeted exams where dose is matched to clinical indication); or iterative reconstruction. DLP: 1071.97 mGy.cm COMPARISON: 05/25/2021 Lower thorax: Lung bases are clear. Visualized heart is normal. Small hiatal hernia. Liver: Mild hepatomegaly and hepatic steatosis. No mass identified on this unenhanced study. Gallbladder: Prior cholecystectomy. Pancreas: Normal size and attenuation. Normal pancreatic duct. No pancreatitis or mass. Spleen: Normal spleen with numerous granulomata. Adrenal glands: Normal. No mass. Right kidney: Normal size kidney with no mass or hydronephrosis. Left kidney: Lobulated nonobstructing 9 mm calcification lower pole. This may be two adjacent calcifi cations or a single lobulated stone. Mild perinephric stranding. No ureteral obstruction. Aorta: Mild atherosclerosis abdominal aorta with no aneurysm. No free fluid, intraperitoneal air or significant lymphadenopathy. GI tract: Prior appendectomy. Normally distended stomach. No small bowel obstruction. Mild diffuse co nstipation. No significant diverticular disease. Abdominal wall: Small umbilical hernia contains fat only. Pelvis: Nondistended urinary bladder. Atrophic uterus and ovaries as expected. No free fluid or adeno nicolasa. Osseous structures: Increase in the lumbar lordosis. CT/CT kidney stone [id number] IMPRESSION: 1. Mild hepatomegaly and hepatic steatosis. 2. Prior cholecystectomy and appendectomy. 3. No bile duct dilatation. 4. No renal obstruction. 5. Nonobstructing 9 mm calcification lower pole LEFT kidney.
== END 2021-11-03 14:35 | disposition home or self-care (01) ==
LOC: RAD 14:39
PROVIDERS: PCP Family Medicine; Visit Provider Electrodiagnostic Medicine
DX: N20.0 Calculus of kidney (principal); Z90.49 Acquired absence of other specified parts of digestive tract; R16.0 Hepatomegaly, not elsewhere classified; K76.0 Fatty (change of) liver, not elsewhere classified
CPT/HCPCS: 74176

== ENCOUNTER 2022-04-14 11:11 | Inpatient (IN) | payer MEDICARE, BC, SELFPAY ==
[2022-04-14] VITALS (62 sets, daily range): BP systolic 95–150; BP diastolic 61–104; PULSE 74–120; RESP 12–28; TEMP 36.6; O2SAT 91–99
--- NOTE | 2022-04-14 11:16 | XRR_ITS ---
PROCEDURE INFORMATION: Exam: XR Chest Exam date and time: 04/14/2022 11:42 AM Age: 72 years old Clinical indication: Shortness of breath. TECHNIQUE: Imaging protocol: Radiologic exam of the chest. Views: 1 view. COMPARISON: CR XR chest 2V* [id number] 04/09/2022 2:48 PM FINDINGS: Lungs: No pulmonary consolidation. Pleural spaces: No pleural effusion. No pneumothorax. Heart/Mediastinum: The cardiac silhouette is unchanged. There is calcification in the mitral annulus. No gross evidence of pneumomediastinum. Bones/joints: No gross fracture. Calcific tendinosis of the left rotator cuff. XR/XR chest 1V portable [id number] IMPRESSION: 1. No acute cardiopulmonary abnormality identified. 2. Calcific tendinosis of the left rotator cuff.
--- NOTE | 2022-04-14 11:27 | W.ED.SOB ---
HPI - SOB/Dyspnea General: Chief Complaint: Shortness of Breath/Dyspnea Stated Complaint: SOB Time Seen by Provider: 04/14/22 11:27 History of Present Illness: HPI Narrative: Ms. Lockhart is a 72-year-old lady presenting to the emergency department due to shortness of breath and generalized symptoms. Reports onset of cough approximately 2 weeks ago associated with shortness of breath. Symptoms have persisted and worsened. Cough is mildly productive with thick white sputum. Associated chest discomfort, shortness of breath, nausea, vomiting, right upper quadrant discomfort. Symptoms exacerbated by exertion and laying flat. Intensity is moderate at rest and severe with minimal exertion. Denies history of underlying lung disease or history of abnormal heart rhythm. Currently 3 days of Levaquin but does report bilateral posterior lower leg pain associated with this. No other specific changes in health, exacerbating, or alleviating factors identified. Onset (ago): week(s) Timing: progressively worsening Severity: moderate Exacerbating factors: lying flat and exertion Review of Systems General: Reports: 10 or more systems reviewed and unremarkable except in HPI and below PFSH ED PFSH: Medical History BPPV (benign paroxysmal positional vertigo) Holosystolic murmur Social History Alcohol intake: never Physical Exam Const: COMMON NORMALS: alert GENERAL APPEARANCE: cooperative, well developed and ill appearing (Somewhat) HENMT: COMMON NORMALS: normocephalic and atraumatic HEAD & SCALP: normocephalic and atraumatic Eye: COMMON NORMALS: conjunctivae normal CONJUNCTIVA: Yes conjunctivae normal SCLERA: sclerae normal Neck/C-Spine: COMMON NORMALS: supple GENERAL: Yes trachea midline Resp: EFFORT & INSPECTION: Yes able to speak in complete sentences and Yes tachypneic AUSCULTATION: rhonchi Cardio: RATE: tachycardic RHYTHM: abnormal rhythm irregularly irregular GI: COMMON NORMALS: Soft to palpation PALPATION: Yes Soft to palpation and No Tenderness to palpation present (GI) Extremity: GENERAL: Yes normal exam except as noted and No edema Neuro: COMMON NORMALS: moves all extremities SENSORIUM/ORIENTATION: Yes alert and No Orientation impaired Psych: COMMON NORMALS: mental status grossly normal and Normal thought process present THOUGHT PROCESS: Normal thought process present Course Vital Signs: Vital signs: Vital Signs Temperature 98.3 F 04/16/22 08:46 Pulse Rate 107 H 04/16/22 09:37 Respiratory Rate 20 H 04/16/22 09:37 Blood Pressure 116/73 04/16/22 08:46 Pulse Oximetry 87 L 04/16/22 09:37 Oxygen Delivery Me thod 04/16/22 09:37 Oxygen Flow Rate 2 04/16/22 09:37 MDM - SOB/Dyspnea Medical Decision Making 72-year-old lady presented to the emergency department with respiratory symptoms that have been progressively worsening. Physical exam as noted above. EKG notable for atrial fibrillation with rapid ventricular response, no STEMI. This is a new finding for the patient. Labs notable for leukocytosis, normal hemoglobin. Metabolic panel with mild creatinine elevation without other significant electrolyte derangements, magnesium and potassium are appropriate for arrhythmia prevention. Initial troponin is elevated with negative 2-hour delta troponin. Viral panel is negative. Chest x-ray with no lobar consolidation or pneumothorax. Given unimpressive appearance of chest x-ray compared to clinical presentation I believe that further imaging is appropriate as the patient cannot be ruled out by Wells and PERC criteria. CT angio of the chest shows bilateral pulmonary emboli with moderate clot burden and no evidence of right heart strain. There is also thrombus in the left atrial appendage. No acute intra-abdominal findings to explain symptoms. During ED evaluation patient given fluid bolus without significant improvement in heart rate, Cardizem then initiated, also given aspirin and antibiotics which were ordered empirically before CT findings given clinical history provided. The most likely cause of the patient's symptoms is related to new onset atrial fibrillation secondary to bilateral pulmonary emboli. Given these findings I believe that the patient requires inpatient admission for further evaluation and treatment. The results of ED evaluation were discussed with the patient including plan for admission due to requirement for level of care not available if discharged to prevent significant worsening/deterioration. Patient agreeable with plan. Discussed with hospitalist service who was agreeable to admit patient. Medical Records I reviewed the patient's medical records. Lab Data I reviewed the patient's lab results. 04/14/22 11:31 04/14/22 11:31 Labs/Radiology: Radiology Impressions Chest X-Ray 04/14/22 11:16 IMPRESSION: 1. No acute cardiopulmonary abnormality identified. 2. Calcific tendinosis of the left rotator cuff. Chest/Abdomen/Pelvis CT 04/14/22 12:52 IMPRESSION: 1. Bilateral pulmonary emboli with moderate clot burden on the left and mild clot burden on the right. There is no evidence of right heart strain. 2. Thrombus in the left atrial appendage. 3. Mild peribronchial wall thickening; query viral infection/bronchitis, chronic bronchitis and/or asthma. 4. Aneurysmal dilatation of the ascending thoracic aorta measuring 4.1 x 4.3 cm. There is no gross evidence of rupture. 5. Calcification in the aortic valve. 6. Coronary artery disease. 7. Mild bilateral hilar lymphadenopathy. IMPRESSION: 1. No acute abnormality is identified in the abdomen/pelvis. 2. Nonobstructive left renal stone. 3. 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 COMMENTS: Consistent with the [employer]'s Incidental Findings Committee white paper (J Am David Radiol 2018): Any incidental renal lesion less than 1 cm or classified as too small to characterize, or any incidental cystic renal lesion characterized as simple-appearing, is likely benign. No follow-up imaging is recommended for these lesions per consensus recommendations based on imaging criteria. ADDENDUM: 04/14/22 1421 Findings discussed with Memo Bradshaw at 04/14/2022 2:19 PM TRANSMISSION SYSTEM OPERATOR. Venous Duplex 04/14/22 15:27 IMPRESSION: No evidence of deep vein thrombosis. Laboratory Results WBC 14.2 10^3/uL (4.0-10.0) H 04/14/22 11:31 RBC 5.13 10^6/uL (4.1-5.3) 04/14/22 11:31 Hgb 14.7 g/dL (11.5-15.3) 04/14/22 11:31 Hct 46.3 % (37.0-47.0) 04/14/22 11:31 MCV 90.3 fl (81-99) 04/14/22 11:31 MCH 28.7 pg (28.0-34.0) 04/14/22 11:31 MCHC 31.7 g/dL (30.0-36.0) 04/14/22 11:31 RDW 13.3 % (12.1-15.1) 04/14/22 11:31 Plt Count 180 10^3/cmm (130-400) 04/14/22 11:31 MPV 10.4 fL (7.4-10.4) 04/14/22 11:31 Neut % (Auto) 87.1 % 04/14/22 11:31 Lymph % (Auto) 5.9 % 04/14/22 11:31 [place] % (Auto) 6.1 % 04/14/22 11:31 Eos % (Auto) 0.0 % 04/14/22 11:31 Baso % (Auto) 0.1 % 04/14/22 11:31 Neut # (Auto) 12.40 10^3/uL (1.8-7.7) H 04/14/22 11:31 Lymph # (Auto) 0.8 10^3/uL (0.8-4.8) 04/14/22 11:31 [place] # (Auto) 0.9 10^3/uL (0.2-0.9) 04/14/22 11:31 Eos # (Auto) 0.0 10^3/uL (0.0-0.8) 04/14/22 11:31 Baso # (Auto) 0.0 10^3/uL (0.0-0.1) 04/14/22 11:31 Nucleated RBC % (auto) 0 % 04/14/22 11:31 Nucleated RBCs # 0.0 /100WBC 04/14/22 11:31 PT 15.70 SECONDS (12.1-14.9) H 04/14/22 11:31 INR 1.21 (0.8-1.2) H 04/14/22 11:31 APTT 25.4 SECONDS (23.9-36.7) 04/14/22 11:31 D-Dimer 12.63 ug/mIFEU (0-0.59) H 04/14/22 11:31 Sodium 139 mmol/L (136-145) 04/14/22 11:31 Potassium 4.3 mmol/L (3.5-5.1) 04/14/22 11:31 Chloride 100 mmol/L (98-107) 04/14/22 11:31 Carbon Dioxide 26 mmol/L (22-29) 04/14/22 11:31 Anion Gap 17.3 (5-19) 04/14/22 11:31 BUN 31 mg/dL (8-23) H 04/14/22 11:31 Creatinine 1.4 mg/dL (0.5-0.9) H 04/14/22 11:31 GFR Calculation Not Reportable 04/14/22 11:31 Glucose 119 mg/dL (65-115) H 04/14/22 11:31 Calculated Osmolality 296 mOsm/kg (285-295) H 04/14/22 11:31 Lactic Acid 3.7 mmol/L (0.5-2.2) H 04/14/22 11:31 Calcium 9.4 mg/dL (8.5-10.5) 04/14/22 11:31 Magnesium 2.3 mg/dL (1.7-2.3) 04/14/22 11:31 Total Bilirubin 0.9 mg/dL (0.15-1.2) 04/14/22 11:31 AST 15 U/L (0-32) 04/14/22 11:31 ALT 20 U/L (0-33) 04/14/22 11:31 Alkaline Phosphatase 52 U/L (35-105) 04/14/22 11:31 Troponin T Baseline 148 ng/L (0-10) H* 04/14/22 11:31 Troponin T 120 Minute 109.4 ng/L (0-10) H 04/14/22 13:22 Delta Troponin T -38.6 ABS# (0-10) L 04/14/22 13:22 NT-Pro-B Natriuret Pep 5183 pg/mL (0-125) H 04/14/22 11:31 Total Protein 6.4 g/dL (6.6-8.7) L 04/14/22 11:31 Albumin 3.8 g/dL (3.5-5.2) 04/14/22 11:31 Globulin 2.6 g/dL (1.3-4.6) 04/14/22 11:31 TSH 1.04 uIU/mL (0.27-4.20) 04/14/22 11:31 Nasal Influ A H1 2008 PCR Not detected (NOT DETECT) 04/14/22 12:38 Adenovirus (PCR) Not detected (NOT DETECT) 04/14/22 12:38 C. pneumoniae DNA (PCR) Not detected (NOT DETECT) 04/14/22 12:38 Coronavirus 229E (PCR) Not detected (NOT DETECT) 04/14/22 12:38 Human Metapneumovir PCR Not detected (NOT DETECT) 04/14/22 12:38 Influenza A (H1) PCR Not detected (NOT DETECT) 04/14/22 12:38 Influenza A (H3) PCR Not detected (NOT DETECT) 04/14/22 12:38 Influenza Type A (PCR) Not detected (NOT DETECT) 04/14/22 12:38 Influenza Type B (PCR) Not detected (NOT DETECT) 04/14/22 12:38 M. pneumoniae (PCR) Not detected (NOT DETECT) 04/14/22 12:38 Parainfluenza 1 (PCR) Not detected (NOT DETECT) 04/14/22 12:38 Parainfluenza 2 (PCR) Not detected (NOT DETECT) 04/14/22 12:38 Parainfluenza 3 (PCR) Not detected (NOT DETECT) 04/14/22 12:38 Parainfluenza 4 (PCR) Not detected (NOT DETECT) 04/14/22 12:38 RSV Type A (PCR) Not detected (NOT DETECT) 04/14/22 12:38 RSV Type B (PCR) Not detected (NOT DETECT) 04/14/22 12:38 Entero/Rhino (PCR) Not detected (NOT DETECT) 04/14/22 12:38 SARS-CoV-2 (PCR) Not detected (NOT DETECT) 04/14/22 12:38 Critical Care Time Critical Care Time: Critical Care Time: Yes Total Critical Care Time: 40 Attestation: Due to a high probability of clinically significant, possibly life threatening deterioration, the patient required my highest level of attention and preparedness to intervene emergently and I personally spent this critical care time directly and personally managing the patient. This critical care time included obtaining a history; examining the patient; pulse oximetry; ordering and review of laboratory and imaging studies; arranging urgent treatment with development of a management plan; evaluation of patient's response to treatment; frequent reassessment; and, discussions with other providers as applicable. It was exclusive of separately billable procedures. Primary system involved is cardiopulmonary. Discharge Plan Discharge Patient Disposition: Admitted As Inpatient Admit Provider: Salguero,Wilman Clinical Impression: Pulmonary embolism, bilateral, New onset a-fib, Atrial fibrillation with rapid ventricular response Condition: Stable Coding Level of Care Code ED Child And Family Counselor for Chg Fwd Exam Comprehensive
--- NOTE | 2022-04-14 11:34 | ECG_ITS ---
[facility] Test Date: 2022-04-14 Pat Name: Carolina Lockhart Department: Room: Gender: Female Event Planning Intern: : 1950 Requested By: Memo Bradshaw Order Number: [id number] Otero MD: Pepe Rao M.D. Measurements Intervals [place] Rate: 143 P: 0 [place]: 0 QRS: 61 QRSD: 98 T: 50 QT: 286 QTc: 441 Interpretive Statements ATRIAL FIBRILLATION WITH RAPID VENTRICULAR RESPONSE Compared to ECG 07/12/2021 01:42:39 Sinus rhythm no longer present Electronically Signed On 04-15-2022 19:46:51 MEAT SUPERVISOR by Pepe Rao M.D. [id number]
[2022-04-14] MEDS: sodium chloride 0.9% 500 ML 999 ML IV (11:40)
[2022-04-14] MEDS: dilTIAZem 5 mg/mL SDV 5 mL 20 MG IVP ×2 (11:40→12:06)
[2022-04-14 11:42] LABS: Basophils % 0.1 %; Hematocrit 46.3 % (37.0-47.0); Hemoglobin 14.7 g/dL (11.5-15.3); Lymphocytes # 0.8 10^3/uL (0.8-4.8); Lymphocytes % 5.9 %; Mean Corpuscular HGB Conc 31.7 g/dL (30.0-36.0); Mean Corpuscular Hemoglobin 28.7 pg (28.0-34.0); Mean Corpuscular Volume 90.3 fl (81-99); Mean Platelet Volume 10.4 fL (7.4-10.4); Monocytes # 0.9 10^3/uL (0.2-0.9); Monocytes % 6.1 %; Neutrophils % 87.1 %; Nucleated Red Blood Cells % 0 %; Platelet Count 180 10^3/cmm (130-400); Red Blood Count 5.13 10^6/uL (4.1-5.3); Red Cell Distribution Width 13.3 % (12.1-15.1); White Blood Count 14.2 10^3/uL (4.0-10.0)
[2022-04-14 11:57] LABS: INR 1.21 (0.8-1.2); Partial Thromboplastin Time 25.4 SECONDS (23.9-36.7)
[2022-04-14 12:04] LABS: Lactic Sepsis W/Reflex 3.7 mmol/L (0.5-2.2)
[2022-04-14] MEDS: dilTIAZem 100 MG in sodium chloride 0.9% (add-van) 100 ML IV (12:06)
[2022-04-14 12:16] LABS: Alanine Aminotransferase 20 U/L (0-33); Albumin Level 3.8 g/dL (3.5-5.2); Alkaline Phosphatase 52 U/L (35-105); Anion Gap 17.3 (5-19); Aspartate Amino Transferase 15 U/L (0-32); Blood Urea Nitrogen 31 mg/dL (8-23); Calcium 9.4 mg/dL (8.5-10.5); Carbon Dioxide 26 mmol/L (22-29); Chloride 100 mmol/L (98-107); Globulin 2.6 g/dL (1.3-4.6); Glucose 119 mg/dL (65-115); Magnesium 2.3 mg/dL (1.7-2.3); Osmolality Calculated 296 mOsm/kg (285-295); Potassium 4.3 mmol/L (3.5-5.1); Sodium 139 mmol/L (136-145); Total Bilirubin 0.9 mg/dL (0.15-1.2); Total Protein 6.4 g/dL (6.6-8.7)
[2022-04-14 12:17] LABS: Troponin(5th) Baseline 148 ng/L (0-10)
[2022-04-14 12:20] LABS: NT Pro B Type Natriuretic Pept 5183 pg/mL (0-125); Thyroid Stimulating Hormone 1.04 uIU/mL (0.27-4.20)
[2022-04-14 12:48] LABS: D Dimer 12.63 ug/mIFEU (0-0.59)
--- NOTE | 2022-04-14 12:52 | CTR_ITS ---
PROCEDURE INFORMATION: Exam: CTA Chest With Contrast Exam date and time: 04/14/2022 1:07 PM Age: 72 years old Clinical indication: Generalized abdominal pain. Chest pressure and pain. New atrial fibrillation. Elevated D-dimer. TECHNIQUE: Imaging protocol: Computed tomographic angiography of the chest with contrast. 3D rendering (Not supervised by radiologist): MIP and/or 3D reconstructed images were created by the technologist. Radiation optimization: All CT scans at this facility use at least one of these dose optimization techniques: automated exposure control; mA and/or kV adjustment per patient size (includes targeted exams where dose is matched to clinical indication); or iterative reconstruction. Contrast material: OMNI 350; Contrast volume: 100 ml; Contrast route: INTRAVENOUS (IV); COMPARISON: CT angio chest PE protcl [id number] 06/21/2017 6:41 PM RADIATION DOSE METRICS: Total DLP (mGy-cm): 1255.74 FINDINGS: Pulmonary arteries: Bilateral pulmonary emboli with moderate clot burden on the left and mild clot burden on the right. There is no evidence of right heart strain. Aorta: Aneurysmal dilatation of the ascending thoracic aorta measuring 4.1 x 4.3 cm. There is no gross evidence of rupture. Lungs: There is mild peribronchial wall thickening. Dependent microatelectasis at the right base. No pulmonary mass. Small septated pulmonary cyst in the right upper lobe. Pleural spaces: No pleural effusion. No pneumothorax. Heart: Coronary arterial calcifications are noted. There is thrombus in the left atrial appendage. Dense calcification in the mitral annulus. There are calcifications in the aortic valve. No pericardial effusion. Heart RV/LV ratio: The RV to LV ratio is less than 1. Lymph nodes: A right hilar lymph node measures 1.8 x 2.9 cm. A subcarinal lymph node measures 1.2 x 2.7 cm. Diaphragm: No hiatal hernia. Bones/joints: No acute fracture is seen. Soft tissues: No significant subcutaneous soft tissue swelling. PROCEDURE INFORMATION: Exam: CT Abdomen And Pelvis With Contrast Exam date and time: 04/14/2022 1:07 PM Age: 72 years old Clinical indication: Generalized abdominal pain. Chest pressure and pain. New atrial fibrillation. Elevated D-dimer. TECHNIQUE: Imaging protocol: Computed tomography of the abdomen and pelvis with contrast. Radiation optimization: All CT scans at this facility use at least one of these dose optimization techniques: automated exposure control; mA and/or kV adjustment per patient size (includes targeted exams where dose is matched to clinical indication); or iterative reconstruction. Contrast material: OMNI 350; Contrast volume: 100 ml; Contrast route: INTRAVENOUS (IV); COMPARISON: CT abdomen pelvis w con* [id number] 05/25/2019 12:12 AM RADIATION DOSE METRICS: Total DLP (mGy-cm): 1255.74 FINDINGS: Liver: There is intra and extrahepatic biliary ductal dilatation. This is common following cholecystectomy. Gallbladder and bile ducts: The gallbladder has been removed. Pancreas: The pancreas is unremarkable. Spleen: The spleen is unremarkable. Adrenal glands: The adrenal glands are unremarkable. Kidneys and ureters: Nonobstructive left renal stone. A subcentimeter left renal hypodensity is too small to accurately characterize and requires no follow-up. Stomach and bowel: The stomach and small bowel are unremarkable. The colon is unremarkable. Appendix: The appendix is not identified. Intraperitoneal space: No free intraperitoneal air. Vasculature: No abdominal aortic aneurysm. Lymph nodes: No retroperitoneal lymphadenopathy. Urinary bladder: The bladder is partially decompressed. Reproductive: The uterus and adnexa are grossly unremarkable. Bones/joints: Grade 1 anterolistheses of L3 and L4 likely related to facet joint degeneration. No acute fracture is seen. Soft tissues: Small fat containing umbilical hernia. CT/CT angio chest w abd pel w con IMPRESSION: 1. Bilateral pulmonary emboli with moderate clot burden on the left and mild clot burden on the right. There is no evidence of right heart strain. 2. Thrombus in the left atrial appendage. 3. Mild peribronchial wall thickening; query viral infection/bronchitis, chronic bronchitis and/or asthma. 4. Aneurysmal dilatation of the ascending thoracic aorta measuring 4.1 x 4.3 cm. There is no gross evidence of rupture. 5. Calcification in the aortic valve. 6. Coronary artery disease. 7. Mild bilateral hilar lymphadenopathy. IMPRESSION: 1. No acute abnormality is identified in the abdomen/pelvis. 2. Nonobstructive left renal stone. 3. 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 COMMENTS: Consistent with the [employer]'s Incidental Findings Committee white paper (J Am David Radiol 2018): Any incidental renal lesion less than 1 cm or classified as too small to characterize, or any incidental cystic renal lesion characterized as simple-appearing, is likely benign. No follow-up imaging is recommended for these lesions per consensus recommendations based on imaging criteria.
[2022-04-14] MEDS: aspirin 81 mg Chew Tablet 324 MG PO (12:59)
[2022-04-14] MEDS: cefepime 2,000 MG in sodium chloride 0.9% (plus) 50 ML 100 MG IV (12:59)
[2022-04-14] MEDS: iohexol 350 mg/mL 500 mL Btl (per mL) IV (13:15)
[2022-04-14 13:26] LABS: Reflex Lactate Order REFLEX LACTIC ORDERD
--- NOTE | 2022-04-14 13:48 | ECG_ITS ---
[facility] Test Date: 2022-04-14 Pat Name: Carolina Lockhart Department: Room: Gender: Female Administrative Analyst: : 1950 Requested By: Memo Bradshaw Order Number: [id number] Otero MD: Pepe Rao M.D. Measurements Intervals [place] Rate: 130 P: 0 TX: 0 QRS: 69 QRSD: 92 T: 67 QT: 291 QTc: 429 Interpretive Statements ATRIAL FIBRILLATION WITH RAPID VENTRICULAR RESPONSE Compared to ECG 04/14/2022 12:00:24 No significant changes Electronically Signed On 04-15-2022 19:58:48 DOWEL STICKER OPERATOR by Pepe Rao M.D. [email or web address] Financial Marketsselect medical specialty hospital - [email or web address] Group/store/[id number]
[2022-04-14 14:01] LABS: Troponin 5 2HR 109.4 ng/L (0-10)
--- NOTE | 2022-04-14 15:27 | USR_ITS ---
PROCEDURE INFORMATION: Exam: US Duplex Lower Extremity Veins, Bilateral Exam date and time: 04/14/2022 7:09 PM Age: 72 years old Clinical indication: Edema, localized and other: SOB; Lower extremity, bilateral; Additional info: R/O dvt TECHNIQUE: Imaging protocol: Real-time Duplex ultrasound of the bilateral extremities with 2-D russ scale, color Doppler flow and spectral waveform analysis with image documentation. Complete exam focused on the bilateral lower extremity veins. COMPARISON: CT angio chest w abd pel w con 04/14/2022 1:07 PM FINDINGS: Right deep veins: Unremarkable. The common femoral, femoral, proximal profunda femoral and popliteal veins are patent without thrombus. Normal Doppler waveforms. Normal compressibility and/or augmentation response. Right superficial veins: Saphenofemoral junction is patent without thrombus. Left deep veins: Unremarkable. The common femoral, femoral, proximal profunda femoral and popliteal veins are patent without thrombus. Normal Doppler waveforms. Normal compressibility and/or augmentation response. Left superficial veins: Saphenofemoral junction is patent without thrombus. Soft tissues: Unremarkable. US/[place] [id number] IMPRESSION: No evidence of deep vein thrombosis.
--- NOTE | 2022-04-14 15:29 | PM.HP ---
Providers/Chief Complaint Primary Care Provider: Drew Moscoso DO Chief Complaint: SOB History of Present Illness Carolina Lockhart is a 72 year old female with past medical history of mild to moderate mitral stenosis, heart failure with preserved ejection fraction, was brought in from home with chief complaint of worsening shortness of breath, with exertion, productive whitish cough, going on for last 7 to 10 days, patient was also complaining of left upper quadrant abdominal pain, associated nausea and vomiting, denied any fever, chest pain. Upon arrival in the ER she was worked up for above-mentioned complaint. CTA chest abdomen and pelvis was done: Which showed bilateral pulmonary embolism with moderate clot burden, left atrial thrombus, nonobstructive left renal calculi. EKG : A. fib with RVR Pertinent labs: WBC 14.2, H&H 14/ 46 PLT : 180 . Sodium 139, potassium 4.3, BUN serum creatinine: 31/1.4 , AST ALT alk phos normal, lactic acid 3.7, repeat lactic acid 2, Troponin trend: [id number]: 5183 TSH 1.04 Respiratory viral panel negative Review of Systems General: Reports: 10 or more systems reviewed and unremarkable except in HPI and below Const: Denies: fever(s), chills, body aches, change in appetite or diaphoresis Card: Denies: palpitations, edema, swelling of feet/ankles, dyspnea on exertion or leg pain with exertion Resp: Reports: dyspnea and productive cough; Denies: pain on inspiration GI: Reports: abdominal pain, nausea and vomiting; Denies: diarrhea or constipation : Denies: flank pain Musc: Denies: back pain, extremity pain or extremity swelling Neuro: Denies: headache(s), difficulty walking or confusion Medications/Allergies Home Medications Medication Instructions Recorded Confirmed Last Taken Type albuterol sulfate 90 mcg/actuation 2 puff inhalation Q6H PRN 04/28/21 04/14/22 Unknown Rx aerosol inhaler (Ventolin HFA) shortness of breath or wheezing #6.7 grams levofloxacin 750 mg tablet 750 mg PO DAILY 04/14/22 04/14/22 04/13/22 History prednisone 20 mg tablet 40 mg PO DAILY 04/14/22 04/14/22 04/13/22 History Allergies Allergy/AdvReac Type Severity Reaction Status Date / Time clarithromycin Allergy ADR-Abdominal Verified 04/28/21 12:25 Pain codeine Allergy ADR-Abdominal Verified 04/28/21 12:25 Pain dexlansoprazole Allergy ADR-Back Verified 04/28/21 12:25 [From Dexilant] Pain duloxetine [From Cymbalta] Allergy ADR-Abdominal Verified 04/28/21 12:25 Pain green tea Allergy ADR-Abdominal Verified 04/28/21 12:25 Pain omeprazole Allergy ADR-Abdominal Verified 04/28/21 12:25 Pain ranitidine Allergy ADR-Abdominal Verified 04/28/21 12:25 Pain PFSH Acute PFSH: Medical History BPPV (benign paroxysmal positional vertigo) Holosystolic murmur Social History Alcohol intake: never Vitals/I&O/Wt Last Vital Signs Temp 97.9 F 04/14/22 11:14 Pulse 120 H 04/14/22 13:20 Resp 28 H 04/14/22 11:14 BP 142/96 04/14/22 11:46 Pulse Ox 94 04/14/22 13:20 O2 Del Method 04/14/22 13:20 04/14/22 04/14/22 04/14/22 06:59 14:59 22:59 Intake Total 510.983 / 510.983 Balance 510.983 / 510.983 Weight last 48 hrs Weight 94.347 kg Physical Exam Resp: COMMON NORMALS: clear to auscultation bilaterally EFFORT & INSPECTION: Yes symmetric chest movement AUSCULTATION: clear to auscultation bilaterally Cardio: PERIPHERAL PULSES: Peripheral pulses 2+ throughout OTHER: Irregularly irregular rhythm, S1-S2 variable intensity, grade 2 ejection systolic murmur aortic area GI: COMMON NORMALS: Normal to inspection, nondistended, normoactive bowel sounds present, Soft to palpation, non-tender, No hepatosplenomegaly present and no masses AUSCULTATION: Yes normoactive bowel sounds PALPATION: Yes Soft to palpation and Yes No hepatosplenomegaly present RECTAL EXAM: deferred Extremity: COMMON NORMALS: no clubbing, cyanosis or edema and no pedal edema Data 04/14/22 11:31 04/14/22 11:31 Micro: Microbiology 04/14/22 11:49 Blood Culture - Preliminary Blood SPECIMEN COLLECTED 04/14/22 11:54 Blood Culture - Preliminary Blood SPECIMEN COLLECTED A&P Assessment and plan (1) Pulmonary embolism, bilateral: (2) New onset a-fib: (3) Atrial fibrillation with rapid ventricular response: (4) BPPV (benign paroxysmal positional vertigo): (5) Left atrial thrombus: (6) Renal calculi: (7) Bronchitis: (8) Acute kidney injury superimposed on CKD: (9) Aortic stenosis: (10) Mitral regurgitation: (11) Mild pulmonary hypertension: (12) Mild tricuspid regurgitation: (13) (HFpEF) heart failure with preserved ejection fraction: Plan 72 year old female with past medical history of mild to moderate mitral stenosis, heart failure with preserved ejection fraction, was brought in from home with chief complaint of worsening shortness of breath, with exertion, productive whitish cough, going on for last 7 to 10 days, patient was also complaining of left upper quadrant abdominal pain, associated nausea and vomiting, denied any fever, chest pain. Assessment: Acute bilateral PE newly diagnosed A. fib with RVR NSTEMI Elevated lactic acid: Possibly secondary to transient hypotension secondary to A. fib with RVR-repeat lactic acid is normal Likely KYLE on CKD Mild to moderate aortic stenosis Mild mitral regurgitation History of HFpEF currently compensated Mild pulmonary hypertension Left atrial thrombus commented on CT: Follow-up 2D echo Nonobstructive left renal stone Plan: Follow 2D echo For lower extremity Doppler vein Follow blood culture Procalcitonin Continue heparin drip for now, we will switch her to oral anticoagulations from tomorrow Continue Cardizem drip, start Cardizem 60 p.o. every 6 hours daily Elevated troponin is likely secondary to NSTEMI type II secondary to A. fib with RVR, will follow 6-hour troponin, patient currently denies any, chest pain. Will avoid ACS protocol for now. Continue IV hydration with normal saline Monitor intake output charting Avoid nephrotoxic's Monitor daily weight K>4,MG>2 Continue doxycycline for bronchitis Continue antitussives CODE STATUS: Full code DVT prophylaxis: Not needed on therapeutic anticoagulation Attestations Medical Necessity Statement*: Patient is to be in hospital for management of A. fib with RVR acute PE.Expected length of stay greater than 2 midnights. Time Spent in Patient Care: Greater than 35 minutes (>than 50% of time spent in counselling and/or direct pt care on unit). Critical Care Time: The high probability of a clinically significant, sudden or life threatening deterioration of the patient's [] system(s) required my full and direct attention, intervention and personal management. The critical care time is as shown. This time is in addition to time spent performing any reported procedures but includes the following: [x] Data and vital sign review and interpretation [x] Patient assessment, examination and intervention [x] Documentation [x] Medication orders and management Critical Care Time (min): 60 Coding Level of Care Code Acute Pellet Post Inspector for Chg Fwd Diagnoses Pulmonary embolism, bilateral I26.99 New onset a-fib I48.91 Atrial fibrillation with rapid ventricular response I48.91 BPPV (benign paroxysmal positional vertigo) H81.10 Left atrial thrombus I51.3 Renal calculi N20.0 Bronchitis J40 Acute kidney injury superimposed on CKD N17.9; N18.9 Aortic stenosis I35.0 Mitral regurgitation I34.0 Mild pulmonary hypertension I27.20 Mild tricuspid regurgitation I07.1 (HFpEF) heart failure with preserved ejection fraction I50.30
[2022-04-14] MEDS: heparin drip 25,000 UNIT/500 ML PREMIX 27 UNIT IV (15:54)
[2022-04-14] MEDS: heparin 5,000 unit/mL INJ 1 mL IV (15:55)
[2022-04-14 16:03] LABS: Adenovirus Not Detected (NOT DETECT); Chlamydia Pneumoniae Not Detected (NOT DETECT); Coronavirus 229E,HKU1,NL63,OC4 Not Detected (NOT DETECT); Human Metapneumovirus Not Detected (NOT DETECT); Human Rhinovirus/Enterovirus Not Detected (NOT DETECT); Influenza A Not Detected (NOT DETECT); Influenza A H1 Not Detected (NOT DETECT); Influenza A H1-2009 Not Detected (NOT DETECT); Influenza A H3 Not Detected (NOT DETECT); Influenza B Not Detected (NOT DETECT); Mycoplasma Pneumoniae Not Detected (NOT DETECT); Parainfluenza Virus Type 1 Not Detected (NOT DETECT); Parainfluenza Virus Type 2 Not Detected (NOT DETECT); Parainfluenza Virus Type 3 Not Detected (NOT DETECT); Parainfluenza Virus Type 4 Not Detected (NOT DETECT); Respiratory Syncytial Virus A Not Detected (NOT DETECT); Respiratory Syncytial Virus B Not Detected (NOT DETECT); SARS-COV-2 Not Detected (NOT DETECT)
--- NOTE | 2022-04-14 17:34 | ECG_ITS ---
[facility] Test Date: 2022-04-14 Pat Name: Carolina Lockhart Department: Room: Gender: Female Gameplay Engineer: : 1950 Requested By: Memo Bradshaw Order Number: [id number] Otero MD: Pepe Rao M.D. Measurements Intervals [place] Rate: 163 P: 0 [place]: 0 QRS: 61 QRSD: 92 T: 49 QT: 266 QTc: 438 Interpretive Statements ATRIAL FIBRILLATION WITH RAPID VENTRICULAR RESPONSE MODERATE ST DEPRESSION [0.05+ mV ST DEPRESSION] Compared to ECG 07/12/2021 01:42:39 ST (T wave) deviation now present Sinus rhythm no longer present Electronically Signed On 04-15-2022 19:59:01 MANAGER HYDRAULIC by Pepe Rao M.D. [id number]
[2022-04-14] MEDS: cloNIDine 0.1 mg Tablet PO (18:13)
[2022-04-14] MEDS: dilTIAZem 30 mg Tablet 60 MG PO (18:13)
[2022-04-14] MEDS: sodium chloride 0.9% 1,000 ML 75 ML IV (18:13)
[2022-04-14] MEDS: doxycycline 100 MG in sodium chloride 0.9% (plus) 100 ML IV (18:16)
[2022-04-14 18:38] LABS: Troponin 5 6HR Delta -39.8 ng/L (0-12)
[2022-04-14 18:39] LABS: Troponin 5 6HR 108.2 ng/L (0-10)
--- NOTE | 2022-04-14 19:40 | PC.NURSE ---
PT ARRIVED TO THE UNIT AROUND [id number]. PT HAS NOT HAD ANY COMPLAINTS OF PAIN. PTS PRESSURE WAS ELEVATED, DR GUERRA NOTIFIED. ONE TIME DOSE OF CLONIDINE GIVEN. PRESSURES HAVE IMPROVED SINCE THIS MEDICATION ADMINISTRATION. PT HAS NO COMPLAINTS OF PAIN NOR ANY REQUESTS AT THIS TIME. DINNER TRAY PROVIDED TO PT. PT TOLERATED THIS WELL. PT RESTING IN BED. REPORT GIVEN TO DEMOND MILLER. ALL QUESTIONS ANSWERED. CARE BEING TURNED OVER TO THIS NURSE.
[2022-04-14] MEDS: benzonatate 100 mg Capsule 200 MG PO (20:09)
[2022-04-14] MEDS: dilTIAZem 100 MG in sodium chloride 0.9% (add-van) 100 ML 15 MG IV (20:10)
[2022-04-14 22:54] LABS: Partial Thromboplastin Time 193.2 SECONDS (23.9-36.7)
--- NOTE | 2022-04-14 23:07 | PC.NURSE ---
Initial 6hr ptt results: 193.2 Attending physician notified per protocol. Orders received to pause heparin gtt for 2hrs and then decrease dose by 2units once restarted.
[2022-04-15] VITALS (205 sets, daily range): BP systolic 99–151; BP diastolic 55–101; PULSE 74–141; RESP 12–29; TEMP 36.4–36.6; O2SAT 83–100
[2022-04-15] MEDS: guaiFENesin 100 mg/5 mL UDC 10 mL 400 MG PO (00:03)
[2022-04-15] MEDS: dilTIAZem 30 mg Tablet 60 MG PO ×3 (01:44→12:06)
[2022-04-15] MEDS: albuterol 2.5 mg/3 mL Neb INHALATION (02:04)
[2022-04-15 02:55] LABS: Basophils % 0.1 %; Eosinophils % 0.2 %; Hematocrit 39.8 % (37.0-47.0); Hemoglobin 12.5 g/dL (11.5-15.3); Lymphocytes # 2.1 10^3/uL (0.8-4.8); Lymphocytes % 21.8 %; Mean Corpuscular HGB Conc 31.4 g/dL (30.0-36.0); Mean Corpuscular Hemoglobin 28.2 pg (28.0-34.0); Mean Corpuscular Volume 89.8 fl (81-99); Mean Platelet Volume 10.5 fL (7.4-10.4); Monocytes # 0.8 10^3/uL (0.2-0.9); Monocytes % 8.4 %; Neutrophils # 6.49 10^3/uL (1.8-7.7); Neutrophils % 68.9 %; Nucleated Red Blood Cells % 0 %; Platelet Count 144 10^3/cmm (130-400); Red Blood Count 4.43 10^6/uL (4.1-5.3); Red Cell Distribution Width 13.6 % (12.1-15.1); White Blood Count 9.4 10^3/uL (4.0-10.0)
[2022-04-15 03:03] LABS: Partial Thromboplastin Time 69.4 SECONDS (23.9-36.7)
[2022-04-15] MEDS: dilTIAZem 100 MG in sodium chloride 0.9% (add-van) 100 ML 15 MG IV (03:10)
[2022-04-15 03:25] LABS: Alanine Aminotransferase 16 U/L (0-33); Albumin Level 3.2 g/dL (3.5-5.2); Alkaline Phosphatase 40 U/L (35-105); Aspartate Amino Transferase 14 U/L (0-32); Blood Urea Nitrogen 22 mg/dL (8-23); Calcium 8.4 mg/dL (8.5-10.5); Carbon Dioxide 24 mmol/L (22-29); Chloride 103 mmol/L (98-107); Globulin 2.2 g/dL (1.3-4.6); Glucose 93 mg/dL (65-115); Magnesium 2.1 mg/dL (1.7-2.3); Osmolality Calculated 285 mOsm/kg (285-295); Sodium 136 mmol/L (136-145); Thyroid Stimulating Hormone 1.13 uIU/mL (0.27-4.20); Total Bilirubin 0.8 mg/dL (0.15-1.2); Total Protein 5.4 g/dL (6.6-8.7)
--- NOTE | 2022-04-15 06:00 | USCV_ITS ---
Richy Carolina Age: 72 Gender: F : 1950 Exam Date: 04/15/2022 12:14 Ordering Phys: Wilman Salguero MD Technologist: BOBBY Exam Location: [facility] Indication: sob BP: 119 / 76 HR: 91 Rhythm: Atrial fibrillation Technical Quality: Adequate MEASUREMENTS (Male / Female) Normal Values 2D ECHO LV Diastolic Diameter PLAX 3.6 cm 4.2 - 5.9 / 3.9 - 5.3 cm LV Systolic Diameter PLAX 2.4 cm IVS Diastolic Thickness 0.8 cm 0.6 - 1.0 / 0.6 - 0.9 cm IVS Systolic Thickness 1.3 cm LVPW Diastolic Thickness 0.8 cm 0.6 - 1.0 / 0.6 - 0.9 cm LVPW Systolic Thickness 1.1 cm LVOT Diameter 2.1 cm LV Ejection Fraction 2D Teich 61.2 % LV Ejection Fraction MOD 2C 39.4 % LV Ejection Fraction 2C AL 41.0 % LA Diameter 3.8 cm IVC Diameter 2.3 cm M-MODE Aortic Annulus Diameter 1.7 cm LA Ao Ratio MM 2.4 MV E Point Septal Separation 0.2 cm DOPPLER AV Peak Velocity 301.0 cm/s LVOT Peak Velocity 184.0 cm/s AV Area Cont Eq vti 1.7 cm squared AV Area Cont Eq pk 2.1 cm squared MV Area PHT 4.8 cm squared Mitral E to A Ratio 1.3 MV E' Velocity 88.5 cm/s Mitral E to MV E' Ratio 24.1 Mitral E to LV E' Lateral Ratio 20.1 Mitral E to LV E' Septal Ratio 30.6 TR Peak Velocity 280.3 cm/s TR Peak Gradient 31.4 mmHg TV Peak E Velocity 72.0 cm/s PV Peak Velocity 103.0 cm/s FINDINGS Left Ventricle Left ventricle is normal in size. LV systolic function is normal with EF 55 to 60%. No regional wall motion abnormalities are seen. Right Ventricle Normal in size and function Right Atrium Normal in size Left Atrium Dilated. Left atrial appendage not well visualized. Mitral Valve Severe mitral annular calcification is seen. Mild to moderate mitral regurgitation Aortic Valve Aortic valve is thickened and calcified. Moderate aortic stenosis. Aortic valve area is 1.7 cm squared with mean gradient across aortic valve of 21 mmHg. Mild aortic regurgitation. Tricuspid Valve Mild tricuspid regurgitation. RVSP is 45 to 50 mmHg. This is consistent with moderate pulmonary hypertension Pulmonic Valve Not well visualized Pericardium Normal Aorta Normal in size IVC Appears to be dilated CONCLUSIONS LV systolic function is normal with EF of 55 to 60%. Left atrial dilation Severe mitral annular calcification. Mild to moderate mitral regurgitation Aortic valve is thickened. Moderate aortic stenosis. Mild aortic regurgitation Mild tricuspid regurgitation Moderate pulmonary hypertension Compared to prior echocardiogram from 01/2021, no significant change is seen Pepe Rao MD (Electronically Signed) Final Date: 15 April 2022 19:28 S
[2022-04-15] MEDS: doxycycline 100 MG in sodium chloride 0.9% (plus) 100 ML IV ×2 (06:02→17:00)
[2022-04-15 07:39] LABS: Partial Thromboplastin Time 116.9 SECONDS (23.9-36.7)
[2022-04-15] MEDS: benzonatate 100 mg Capsule 200 MG PO ×3 (08:51→21:59)
[2022-04-15] MEDS: ipratropium 0.5 mg/2.5 mL Neb INHALATION (09:29)
[2022-04-15] MEDS: levalbuterol 0.63 mg/3 mL Neb INHALATION (09:29)
[2022-04-15 10:34] LABS: Partial Thromboplastin Time 45.5 SECONDS (23.9-36.7)
--- NOTE | 2022-04-15 11:28 | PC.NURSE ---
at 1030, patient is reporting discomfort in left breast. After further questioning, she describes is as being in the breast tissue, not the chest. Nurse alerted Dr hernandez and received orders for an ultrasound.
--- NOTE | 2022-04-15 11:29 | PC.NURSE ---
At 1130, patient reports pain to the left breast 9 or 10/10 on a pain scale. Nurse alerted Dr Salguero to reports of severe pain and was advised he will put in order for pain medication. Patient refuses assessment of breast by nurse. Nurse offered to have female nurse asses the breast, but she still refuses. Patient is refusing oral diltizem and lovenox now. Nurse explained the reasoning behind the medications and consequences of not taking them but patient still refuses. Nurse will attempt to administer meds again after pain medication is administered.
[2022-04-15] MEDS: TRAMadol 50 mg Tablet PO ×2 (12:05→17:12)
[2022-04-15] MEDS: enoxaparin 100 mg/mL Syringe 90 MG SUBCUT ×2 (12:06→22:15)
--- NOTE | 2022-04-15 12:11 | PC.NURSE ---
After receiving tramadol for pain, patient agreed to assessment of left breast while Dr was at bedside. No abnormalities noted. Patient has agreed to take oral diltiazem and lovenox now.
--- NOTE | 2022-04-15 14:45 | PC.NURSE ---
IV Cardizem requirements have increased throughout the day. Currently at a rate of 15mg/HR. Nurse has alerted Dr hernandez to inability to titrate off of Cardizem. PO Cardizem orders increased. Nurse will continue to titrate per protocol as indicated.
--- NOTE | 2022-04-15 15:42 | P.PN_ITS ---
Subjective Subjective: Patient was seen and examined this morning she was complaining of left-sided breast pain, continue pain Cardizem drip, in A. fib, will discontinue heparin drip and switch her to Lovenox therapeutic. Cardizem p.o. dose has been increased to 90 p.o. every 6, she also receive 1 dose of digoxin 500 MCG IV. Medications: Medication Review Details: Generic Name Dose Route Start Last Admin Trade Name Freq PRN Reason Stop Dose Admin Benzonatate 200 mg 04/14/22 15:50 04/15/22 14:22 Benzonatate 100 Mg Capsule PO 200 mg TID MAME Administration Enoxaparin Sodium 90 mg 04/15/22 11:00 04/15/22 12:06 Enoxaparin 100 M g/Ml Syringe 1 mg/kg (90 mg) 90 mg SUBCUT Administration Q12H [facility] Guaifenesin 400 mg 04/15/22 00:00 04/15/22 00:03 Guaifenesin 100 Mg/5 Ml Udc 10 Ml PO 400 mg Q4H PRN Administration COUGH Doxycycline Hyclat e 100 mg/ 100 mls @ 100 mls /hr 04/14/22 18:00 04/15/22 09:57 Sodium Chloride IV Infused Q12H [facility] Infusion Protocol Ipratropium Bromid e 0.5 mg 04/15/22 08:33 04/15/22 09:29 Ipratropium 0.5 Mg/2.5 Ml Neb INHALATION 0.5 mg Q6H PRN Administration sob Levalbuterol HCl 0.63 mg 04/15/22 08:33 04/15/22 09:29 Levalbuterol 0.6 3 Mg/3 Ml Neb INHALATION 0.63 mg Q6H.RESP PRN Administration SHORTNESS OF MARQUEZ TH Tramadol HCl 50 mg 04/15/22 11:53 04/15/22 12:05 Tramadol 50 Mg T ablet PO 50 mg Q4H PRN Administration MODERATE PAIN Vitals/I&O/Wt Last Vital Signs Temp 97.8 F 04/15/22 08:20 Pulse 112 H 04/15/22 14:00 Resp 24 H 04/15/22 13:10 BP 108/66 04/15/22 13:10 Pulse Ox 94 04/15/22 13:05 O2 Del Method 04/15/22 13:00 O2 Flow Rate 2 04/15/22 13:00 04/15/22 04/15/22 04/15/22 06:59 14:59 22:59 Intake Total 291.7 / 2601.850 2135.295 / 2135.295 Output Total 400 / 400 Balance 291.7 / 2601.850 1735.295 / 1735.295 Weight last 48 hrs Weight 94.347 kg Physical Exam Resp: COMMON NORMALS: clear to auscultation bilaterally EFFORT & INSPECTION: Yes symmetric chest movement AUSCULTATION: clear to auscultation bilaterally Cardio: COMMON NORMALS: Peripheral pulses 2+ throughout PERIPHERAL PULSES: Peripheral pulses 2+ throughout OTHER: Irregularly irregular rhythm, S1-S2 variable intensity, grade 2 ejection systolic murmur aortic area GI: COMMON NORMALS: Normal to inspection, nondistended, normoactive bowel sounds present, Soft to palpation, non-tender, No hepatosplenomegaly present and no masses AUSCULTATION: Yes normoactive bowel sounds PALPATION: Yes Soft to palpation and Yes No hepatosplenomegaly present RECTAL EXAM: deferred Extremity: COMMON NORMALS: no clubbing, cyanosis or edema and no pedal edema Data 04/15/22 02:34 04/15/22 02:34 Micro: Microbiology 04/14/22 11:49 Blood Culture - Preliminary Blood NEGATIVE TO DATE 04/14/22 11:54 Blood Culture - Preliminary Blood NEGATIVE TO DATE A&P Assessment and plan (1) Pulmonary embolism, bilateral: (2) New onset a-fib: (3) Atrial fibrillation with rapid ventricular response: (4) BPPV (benign paroxysmal positional vertigo): (5) Left atrial thrombus: (6) Renal calculi: (7) Bronchitis: (8) Acute kidney injury superimposed on CKD: (9) Aortic stenosis: (10) Mitral regurgitation: (11) Mild pulmonary hypertension: (12) Mild tricuspid regurgitation: (13) (HFpEF) heart failure with preserved ejection fraction: Plan 72 year old female with past medical history of mild to moderate mitral stenos is, heart failure with preserved ejection fraction, was brought in from home with chief complaint of worsening shortness of breath, with exertion, productive whitish cough, going on for last 7 to 10 days, patient was also complaining of left upper quadrant abdominal pain, associated nausea and vomiting, denied any fever, chest pain. Assessment: Acute bilateral PE newly diagnosed A. fib with RVR NSTEMI : Elevated lactic acid: Possibly secondary to transient hypotension secondary to A. fib with RVR-repeat lactic acid is normal Likely KYLE on CKD Mild to moderate aortic stenosis Mild mitral regurgitation History of HFpEF currently compensated Mild pulmonary hypertension Left atrial thrombus commented on CT: Follow-up 2D echo Nonobstructive left renal stone Plan: Follow 2D echo For lower extremity Doppler vein: Negative for DVT Follow blood culture: NTD Procalcitonin: TSH: 1.13 Continue heparin drip for now, we will switch her to oral anticoagulations from tomorrow Continue Cardizem drip, start Cardizem 60 p.o. every 6 hours daily Elevated troponin is likely secondary to NSTEMI type II secondary to A. fib with RVR, Continue IV hydration with normal saline Monitor intake output charting Avoid nephrotoxic's Monitor daily weight K>4,MG>2 Continue doxycycline for bronchitis Continue antitussives Respiratory viral panel is negative CODE STATUS: Full code DVT prophylaxis: Not needed on therapeutic anticoagulation Attestations Medical Necessity Statement*: Patient is in hospital for A. fib and PE. Coding Level of Care Code Acute Innovation Manager for Chg Fwd Exam Expanded Problem Focused Diagnoses Pulmonary embolism, bilateral I26.99 New onset a-fib I48.91 Atrial fibrillation with rapid ventricular response I48.91 BPPV (benign paroxysmal positional vertigo) H81.10 Left atrial thrombus I51.3 Renal calculi N20.0 Bronchitis J40 Acute kidney injury superimposed on CKD N17.9; N18.9 Aortic stenosis I35.0 Mitral regurgitation I34.0 Mild pulmonary hypertension I27.20 Mild tricuspid regurgitation I07.1 (HFpEF) heart failure with preserved ejection fraction I50.30
[2022-04-15] MEDS: dilTIAZem 30 mg Tablet 90 MG PO ×2 (17:00→22:14)
[2022-04-15] MEDS: digoxin 250 mcg/ml INJ 2 mL 500 MCG IVP (17:00)
--- NOTE | 2022-04-15 18:55 | PC.NURSE ---
SHift SUmmary: Uneventful shift. Patient has rested in bed throughout the day. Initially had difficulties titrating down on the cardizem, but near end of shift nurse was able to start titration down. Patient has complained to pain in the soft tissue of the right breast, requiring tramadol for pain relief. Urine output has only been 400mL for the entire 12 hour shift (0.35mL/KG/hr). Dr hernandez alerted to low urine output.
[2022-04-15] MEDS: cyclobenzaprine 10 mg Tablet 5 MG PO (22:27)
[2022-04-16] VITALS (54 sets, daily range): BP systolic 111–141; BP diastolic 52–82; PULSE 70–107; RESP 17–30; TEMP 36.8; O2SAT 87–99
[2022-04-16 03:05] LABS: Basophils % 0.1 %; Eosinophils % 0.3 %; Hematocrit 40.9 % (37.0-47.0); Hemoglobin 12.5 g/dL (11.5-15.3); Lymphocytes # 1.7 10^3/uL (0.8-4.8); Lymphocytes % 19.5 %; Mean Corpuscular HGB Conc 30.6 g/dL (30.0-36.0); Mean Corpuscular Hemoglobin 28.5 pg (28.0-34.0); Mean Corpuscular Volume 93.2 fl (81-99); Mean Platelet Volume 10.6 fL (7.4-10.4); Monocytes # 0.8 10^3/uL (0.2-0.9); Monocytes % 8.6 %; Neutrophils # 6.15 10^3/uL (1.8-7.7); Neutrophils % 70.9 %; Nucleated Red Blood Cells % 0 %; Platelet Count 128 10^3/cmm (130-400); Red Blood Count 4.39 10^6/uL (4.1-5.3); Red Cell Distribution Width 13.6 % (12.1-15.1); White Blood Count 8.7 10^3/uL (4.0-10.0)
[2022-04-16 03:27] LABS: Alanine Aminotransferase 19 U/L (0-33); Albumin Level 2.7 g/dL (3.5-5.2); Alkaline Phosphatase 48 U/L (35-105); Anion Gap 8.9 (5-19); Aspartate Amino Transferase 29 U/L (0-32); Blood Urea Nitrogen 18 mg/dL (8-23); Calcium 8.2 mg/dL (8.5-10.5); Carbon Dioxide 25 mmol/L (22-29); Chloride 102 mmol/L (98-107); Globulin 2.5 g/dL (1.3-4.6); Glucose 92 mg/dL (65-115); Osmolality Calculated 276 mOsm/kg (285-295); Potassium 3.9 mmol/L (3.5-5.1); Sodium 132 mmol/L (136-145); Total Bilirubin 1.4 mg/dL (0.15-1.2); Total Protein 5.2 g/dL (6.6-8.7)
[2022-04-16] MEDS: doxycycline 100 MG in sodium chloride 0.9% (plus) 100 ML IV (05:20)
[2022-04-16] MEDS: dilTIAZem 30 mg Tablet 90 MG PO (05:26)
[2022-04-16] MEDS: cyclobenzaprine 10 mg Tablet 5 MG PO (06:03)
[2022-04-16] MEDS: benzonatate 100 mg Capsule 200 MG PO (08:34)
[2022-04-16] MEDS: enoxaparin 100 mg/mL Syringe 90 MG SUBCUT (10:20)
[2022-04-16] MEDS: dilTIAZem 60 mg Tablet 90 MG PO (10:32)
--- NOTE | 2022-04-16 10:52 | PC.NURSE ---
Home O2 evaluaton done and patient requires oxygen. Case management set up with HOME being given to patient at 1052. All IV's removed. Patient discharge instructions given to patient and prescriptions sent to preferred pharmacy per Patient.
--- NOTE | 2022-04-16 11:36 | PC.NURSE ---
Patient taken via w/c to ER exit. Patient very thankful for care provided.
--- NOTE | 2022-04-16 11:38 | PC.NURSE ---
Called HOME to have them go to patients house and set up oxygen
--- NOTE | 2022-04-16 12:36 | P.DS_ITS ---
Discharge Providers Date of Admission: 04/14/22 14:17 Date of Discharge: April 16, 2022 Attending Provider at Admission: Wilman Salguero MD Attending Provider at Discharge: Wilman Salguero MD Primary Care Provider: Drew Moscoso DO Diagnoses at Discharge Discharge Diagnosis (1) Pulmonary embolism, bilateral: Status: Acute (2) New onset a-fib: Status: Acute (3) Atrial fibrillation with rapid ventricular response: Status: Acute (4) BPPV (benign paroxysmal positional vertigo): Status: Acute (5) Left atrial thrombus: Status: Acute (6) Renal calculi: Status: Acute (7) Bronchitis: Status: Acute (8) Acute kidney injury superimposed on CKD: Status: Acute (9) Aortic stenosis: Status: Acute (10) Mitral regurgitation: Status: Acute (11) Mild pulmonary hypertension: Status: Acute (12) Mild tricuspid regurgitation: Status: Acute (13) (HFpEF) heart failure with preserved ejection fraction: Status: Acute Reason for Visit Reason for Visit: SOB Hospital Course Hospital Course 72 year old female with past medical history of mild to moderate mitral stenosis, heart failure with preserved ejection fraction, was brought in from home with chief complaint of worsening shortness of breath, with exertion, productive whitish cough, going on for last 7 to 10 days, patient was also complaining of left upper quadrant abdominal pain, associated nausea and vomiting, denied any fever, chest pain.She was admitted for the management of newly diagnosed pulmonary embolism, newly diagnosed A. fib with RVR: CTA chest abdomen and pelvis was done: Which showed bilateral pulmonary embolism with moderate clot burden, left atrial thrombus, nonobstructive left renal calculi.?lower extremity Doppler vein: Negative for DVT. 2D echo: LV systolic function is normal with EF of 55 to 60%.?Left atrial dilation.Severe mitral annular calcification.Mild to moderate mitral ?regurgitation,?Aortic valve is thickened.? Moderate aortic stenosis.Mild aortic regurgitation,?Mild tricuspid regurgitation, Moderate pulmonary hypertension. Patient was kept on therapeutic anticoagulation with heparin drip later transitioned to Lovenox and then discharged on Eliquis. For A. fib with RVR : She was kept on charu blocking agent: She was discharged on Cardizem p.o. 360 daily, heart rate was well controlled, though she continued to be in A. fib. Left atrial thrombus commented on CT, not commented on 2D echo.She was also managed for KYLE likely prerenal KYLE, serum creatinine was normalizing at the time of discharge, she was kept on gentle IV hydration, she was also managed for NSTEMI likely type II secondary to A. fib and PE. For moderate aortic stenosis she will need interval 2D echo follow-up, possible bronchitis she was on doxycycline. she responded overall well to above medical management and was discharged home in stable condition At the time of discharge she qualified for 2 L home oxygen on ambulation. She will follow primary care physician as outpatient. Physical Exam Resp: COMMON NORMALS: clear to auscultation bilaterally EFFORT & INSPECTION: Yes symmetric chest movement AUSCULTATION: clear to auscultation bilaterally Cardio: COMMON NORMALS: Peripheral pulses 2+ throughout PERIPHERAL PULSES: Peripheral pulses 2+ throughout OTHER: Irregularly irregular rhythm, S1-S2 variable intensity, grade 2 ejection systolic murmur aortic area GI: COMMON NORMALS: Normal to inspection, nondistended, normoactive bowel sounds present, Soft to palpation, non-tender, No hepatosplenomegaly present and no masses AUSCULTATION: Yes normoactive bowel sounds PALPATION: Yes Soft to palpation and Yes No hepatosplenomegaly present RECTAL EXAM: deferred Extremity: COMMON NORMALS: no clubbing, cyanosis or edema and no pedal edema Discharge Data Studies Completed and Pending Completed Studies During Hospitalization Category Date Time Status CTA chest CT abdomen pelvis [CT angio chest w abd pel w Cat Scan 04/14/22 12:52 Completed con] Stat XR chest 1V portable [id number] Stat Exams 04/14/22 11:16 Completed CV. echo complete* [id number] Routine Ultrasound 04/15/22 06:00 Completed US venous duplex lower extremity bilat [CV venous Ultrasound 04/14/22 15:27 [place] [id number]] Routine Pending at discharge Category Date Time Status Blood Culture Stat Lab 04/14/22 11:54 Results Radiology Impressions Chest X-Ray 04/14/22 11:16 IMPRESSION: 1. No acute cardiopulmonary abnormality identified. 2. Calcific tendinosis of the left rotator cuff. Chest/Abdomen/Pelvis CT 04/14/22 12:52 IMPRESSION: 1. Bilateral pulmonary emboli with moderate clot burden on the left and mild clot burden on the right. There is no evidence of right heart strain. 2. Thrombus in the left atrial appendage. 3. Mild peribronchial wall thickening; query viral infection/bronchitis, chronic bronchitis and/or asthma. 4. Aneurysmal dilatation of the ascending thoracic aorta measuring 4.1 x 4.3 cm. There is no gross evidence of rupture. 5. Calcification in the aortic valve. 6. Coronary artery disease. 7. Mild bilateral hilar lymphadenopathy. IMPRESSION: 1. No acute abnormality is identified in the abdomen/pelvis. 2. Nonobstructive left renal stone. 3. 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 COMMENTS: Consistent with the [employer]'s Incidental Findings Committee white paper (J Am David Radiol 2018): Any incidental renal lesion less than 1 cm or classified as too small to characterize, or any incidental cystic renal lesion characterized as simple-appearing, is likely benign. No follow-up imaging is recommended for these lesions per consensus recommendations based on imaging criteria. ADDENDUM: 04/14/22 1421 Findings discussed with Memo Bradshaw at 04/14/2022 2:19 PM MILLER HEAD ASSISTANT WET PROCESS. Venous Duplex 04/14/22 15:27 IMPRESSION: No evidence of deep vein thrombosis. Laboratory Results WBC 8.7 10^3/uL (4.0-10.0) 04/16/22 02:19 RBC 4.39 10^6/uL (4.1-5.3) 04/16/22 02:19 Hgb 12.5 g/dL (11.5-15.3) 04/16/22 02:19 Hct 40.9 % (37.0-47.0) 04/16/22 02:19 MCV 93.2 fl (81-99) 04/16/22 02:19 MCH 28.5 pg (28.0-34.0) 04/16/22 02:19 MCHC 30.6 g/dL (30.0-36.0) 04/16/22 02:19 RDW 13.6 % (12.1-15.1) 04/16/22 02:19 Plt Count 128 10^3/cmm (130-400) L 04/16/22 02:19 MPV 10.6 fL (7.4-10.4) H 04/16/22 02:19 Neut % (Auto) 70.9 % 04/16/22 02:19 Lymph % (Auto) 19.5 % 04/16/22 02:19 Sequoyah % (Auto) 8.6 % 04/16/22 02:19 Eos % (Auto) 0.3 % 04/16/22 02:19 Baso % (Auto) 0.1 % 04/16/22 02:19 Neut # (Auto) 6.15 10^3/uL (1.8-7.7) 04/16/22 02:19 Lymph # (Auto) 1.7 10^3/uL (0.8-4.8) 04/16/22 02:19 Sequoyah # (Auto) 0.8 10^3/uL (0.2-0.9) 04/16/22 02:19 Eos # (Auto) 0.0 10^3/uL (0.0-0.8) 04/16/22 02:19 Baso # (Auto) 0.0 10^3/uL (0.0-0.1) 04/16/22 02:19 Nucleated RBC % (auto) 0 % 04/16/22 02:19 Nucleated RBCs # 0.0 /100WBC 04/16/22 02:19 PT 15.70 SECONDS (12.1-14.9) H 04/14/22 11:31 INR 1.21 (0.8-1.2) H 04/14/22 11:31 APTT 45.5 SECONDS (23.9-36.7) H D 04/15/22 10:13 D-Dimer 12.63 ug/mIFEU (0-0.59) H 04/14/22 11:31 Sodium 132 mmol/L (136-145) L 04/16/22 02:19 Potassium 3.9 mmol/L (3.5-5.1) 04/16/22 02:19 Chloride 102 mmol/L (98-107) 04/16/22 02:19 Carbon Dioxide 25 mmol/L (22-29) 04/16/22 02:19 Anion Gap 8.9 (5-19) 04/16/22 02:19 BUN 18 mg/dL (8-23) 04/16/22 02:19 Creatinine 1.0 mg/dL (0.5-0.9) H 04/16/22 02:19 GFR Calculation Not Reportable 04/16/22 02:19 Glucose 92 mg/dL (65-115) 04/16/22 02:19 Calculated Osmolality 276 mOsm/kg (285-295) L 04/16/22 02:19 Lactic Acid 3.7 mmol/L (0.5-2.2) H 04/14/22 11:31 Lactic Acid (Sepsis) 2.0 mmol/L (0.5-2.2) 04/14/22 14:44 Calcium 8.2 mg/dL (8.5-10.5) L 04/16/22 02:19 Magnesium 2.1 mg/dL (1.7-2.3) 04/15/22 02:34 Total Bilirubin 1.4 mg/dL (0.15-1.2) H 04/16/22 02:19 AST 29 U/L (0-32) 04/16/22 02:19 ALT 19 U/L (0-33) 04/16/22 02:19 Alkaline Phosphatase 48 U/L (35-105) 04/16/22 02:19 Troponin T Baseline 148 ng/L (0-10) H* 04/14/22 11:31 Troponin T 120 Minute 109.4 ng/L (0-10) H 04/14/22 13:22 Delta Troponin T -38.6 ABS# (0-10) L 04/14/22 13:22 Troponin T Hi Sens 6Hr 108.2 ng/L (0-10) H 04/14/22 17:54 Troponin T Hi Sens 6Hr Delta -39.8 ng/L (0-12) L 04/14/22 17:54 NT-Pro-B Natriuret Pep 5183 pg/mL (0-125) H 04/14/22 11:31 Total Protein 5.2 g/dL (6.6-8.7) L 04/16/22 02:19 Albumin 2.7 g/dL (3.5-5.2) L 04/16/22 02:19 Globulin 2.5 g/dL (1.3-4.6) 04/16/22 02:19 TSH 1.13 uIU/mL (0.27-4.20) 04/15/22 02:34 Nasal Influ A H1 2008 PCR Not detected (NOT DETECT) 04/14/22 12:38 Adenovirus (PCR) Not detected (NOT DETECT) 04/14/22 12:38 C. pneumoniae DNA (PCR) Not detected (NOT DETECT) 04/14/22 12:38 Coronavirus 229E (PCR) Not detected (NOT DETECT) 04/14/22 12:38 Human Metapneumovir PCR Not detected (NOT DETECT) 04/14/22 12:38 Influenza A (H1) PCR Not detected (NOT DETECT) 04/14/22 12:38 Influenza A (H3) PCR Not detected (NOT DETECT) 04/14/22 12:38 Influenza Type A (PCR) Not detected (NOT DETECT) 04/14/22 12:38 Influenza Type B (PCR) Not detected (NOT DETECT) 04/14/22 12:38 M. pneumoniae (PCR) Not detected (NOT DETECT) 04/14/22 12:38 Parainfluenza 1 (PCR) Not detected (NOT DETECT) 04/14/22 12:38 Parainfluenza 2 (PCR) Not detected (NOT DETECT) 04/14/22 12:38 Parainfluenza 3 (PCR) Not detected (NOT DETECT) 04/14/22 12:38 Parainfluenza 4 (PCR) Not detected (NOT DETECT) 04/14/22 12:38 RSV Type A (PCR) Not detected (NOT DETECT) 04/14/22 12:38 RSV Type B (PCR) Not detected (NOT DETECT) 04/14/22 12:38 Entero/Rhino (PCR) Not detected (NOT DETECT) 04/14/22 12:38 SARS-CoV-2 (PCR) Not detected (NOT DETECT) 04/14/22 12:38 Vitals Last Vital Signs Temp 98.3 F 04/16/22 08:46 Pulse 107 H 04/16/22 09:37 Resp 20 H 04/16/22 09:37 BP 116/73 04/16/22 08:46 Pulse Ox 87 L 04/16/22 09:37 O2 Del Method 04/16/22 09:37 O2 Flow Rate 2 04/16/22 09:37 Discharge Plan Discharge Patient Disposition: Home Condition: Stable Prescriptions: New Cardizem CD 360 mg capsule,extended release 24hr 360 mg PO DAILY 30 Days Qty: 30 3RF benzonatate 100 mg Capsule 200 mg PO TID PRN (Reason: cough) 7 Days Qty: 30 0RF cyclobenzaprine 10 mg Tablet 5 mg PO TID PRN (Reason: Muscle Spasms) 7 Days Qty: 15 0RF tramadol 50 mg Tablet 50 mg PO Q4H PRN (Reason: Moderate Pain) 7 Days Qty: 10 0RF guaifenesin 100 mg/5 mL Liquid 400 mg PO Q4H PRN (Reason: Cough) 7 Days Qty: 30 0RF Eliquis DVT-PE Treat 30D Start 5 mg (74 tabs) tablets,dose pack 5 mg PO BID 30 Days Qty: 60 3RF Continued albuterol sulfate [Ventolin HFA] 90 mcg/actuation HFA aerosol inhaler 2 puff inhalation Q6H PRN (Reason: shortness of breath or wheezing) Qty: 6.7 0RF prednisone 20 mg tablet 40 mg PO DAILY levofloxacin 750 mg tablet 750 mg PO DAILY Discharge Orders: Discharge Order (Routine); Ordered 04/16/22 Ordered By: Wilman Salguero Other Ambulatory Orders: DME: Oxygen (Order) Location: None Selected Ordered By: Wilman Salguero Referrals: Jesus Ann DO [Staff Physician] - 04/23/22 1:30 pm Patient Instructions: Benzonatate (By mouth), Diltiazem (By mouth), Cyclobenzaprine (By mouth), Guaifenesin (By mouth), Tramadol (By mouth), Apixaban (By mouth), Opioid Safety Discharge Attestations Time Spent in Discharge Care*: greater than 30 min Quality Metrics Clinical Quality Measures [ No reported AMI, CVA or VTE this stay] Coding Level of Care Code Acute Chg FW DC note Exam Expanded Problem Focused Diagnoses Pulmonary embolism, bilateral I26.99 New onset a-fib I48.91 Atrial fibrillation with rapid ventricular response I48.91 BPPV (benign paroxysmal positional vertigo) H81.10 Left atrial thrombus I51.3 Renal calculi N20.0 Bronchitis J40 Acute kidney injury superimposed on CKD N17.9; N18.9 Aortic stenosis I35.0 Mitral regurgitation I34.0 Mild pulmonary hypertension I27.20 Mild tricuspid regurgitation I07.1 (HFpEF) heart failure with preserved ejection fraction I50.30
== END 2022-04-16 11:32 | disposition home or self-care (01) | DRG 175 ==
LOC: ER 14:16 → ICU 15:45
PROVIDERS: Internal Medicine; Admitting Provider Internal Medicine; Emergency Provider Emergency Medicine; PCP Family Medicine; Visit Provider Internal Medicine
DX: I26.99 Other pulmonary embolism without acute cor pulmonale (principal); I21.A1 Myocardial infarction type 2; N17.9 Acute kidney failure, unspecified; I50.32 Chronic diastolic (congestive) heart failure; I48.91 Unspecified atrial fibrillation; H81.10 Benign paroxysmal vertigo, unspecified ear; N20.0 Calculus of kidney; J40 Bronchitis, not specified as acute or chronic; N18.9 Chronic kidney disease, unspecified; I08.3 Combined rheumatic disorders of mitral, aortic and tricuspid valves; I27.20 Pulmonary hypertension, unspecified; Z79.51 Long term (current) use of inhaled steroids
CPT/HCPCS: 36415; 71045; 71275; 74177; 80053; 83605; 83735; 83880; 84443; 84484; 85025; 85378; 85610; 85730; 87040; 87486; 87581; 87633; 93005; 93306; 93970; 94640; 94760; 96365; 96366; 96367; 96372; 96375; 96376; 99285; J0692; J1160; J1644; J1650; J3490; J7030; J7040; J7613; J7614; J7644; Q9967

== ENCOUNTER → 2022-05-21 12:58 | Outpatient (BNVA) | payer MEDICARE, BC, SELFPAY | PROVIDERS: PCP Family Medicine; Visit Provider Specialist | DX: M17.11 Unilateral primary osteoarthritis, right knee (principal) | CPT/HCPCS: 73560; 73565; 99204 ==

== ENCOUNTER → 2022-05-31 08:02 | Outpatient (BNVA) | payer MEDICARE, BC, SELFPAY | PROVIDERS: PCP Family Medicine; Visit Provider Specialist | DX: M17.11 Unilateral primary osteoarthritis, right knee (principal); Z71.89 Other specified counseling | CPT/HCPCS: 20610; 99213; J7318 ==

== ENCOUNTER → 2022-06-07 12:55 | Outpatient (BNVA) | payer MEDICARE, BC, SELFPAY | PROVIDERS: PCP Electrodiagnostic Medicine; Visit Provider Internal Medicine Cardiovascular Disease | DX: I48.91 Unspecified atrial fibrillation (principal); I50.30 Unspecified diastolic (congestive) heart failure; I26.99 Other pulmonary embolism without acute cor pulmonale; I35.0 Nonrheumatic aortic (valve) stenosis; R94.31 Abnormal electrocardiogram [ECG] [EKG] | CPT/HCPCS: 93005; 99204; Q3014 ==

== ENCOUNTER 2024-08-23 12:52 | Inpatient (IN) | payer MEDICARE, BC, SELFPAY ==
[2024-08-23] VITALS (11 sets, daily range): BP systolic 95–145; BP diastolic 69–96; PULSE 98–148; RESP 17–28; TEMP 36.7–37; O2SAT 95–97; BMI 33.3; BMI 34.4
--- NOTE | 2024-08-23 12:54 | XRR_ITS ---
PROCEDURE INFORMATION: Exam: XR Chest Exam date and time: 08/23/2024 1:31 PM Age: 74 years old Clinical indication: Shortness of breath; Increased SOB x 2 weeks; Fluid retention; PT states she is unable to lay flat; No previous cardiac/pulmonary issues TECHNIQUE: Imaging protocol: Radiologic exam of the chest. Views: 1 view. COMPARISON: CT angio chest w abd pel w con 04/14/2022 1:07 PM FINDINGS: Lungs: No focal consolidation. Pleural spaces: Moderate right pleural effusion with overlying compression. Small left pleural effusion. No pneumothorax. Heart/Mediastinum: The cardiomediastinal silhouette is mildly prominent. Bones/joints: Degenerative changes of the bilateral shoulders. XR/XR chest 1V portable [id number] IMPRESSION: 1. Moderate right pleural effusion with overlying compression. 2. Small left pleural effusion. 3. The cardiomediastinal silhouette appears prominent and is accentuated by AP technique.
--- NOTE | 2024-08-23 12:57 | ECG_ITS ---
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 Measurements Intervals [place] Rate: 148 P: 0 WI: 0 QRS: 135 QRSD: 86 T: 52 QT: 302 QTc: 475 Interpretive Statements ATRIAL FLUTTER/TACHYCARDIA WITH RAPID VENTRICULAR RESPONSE POSSIBLE RIGHT VENTRICULAR HYPERTROPHY [SOME/ALL OF: PROMINENT R IN V1, LATE TRANSITION, RAD, SKYLER, SSS] POSSIBLE ANTERIOR MYOCARDIAL INFARCTION , PROBABLY OLD [30 ms Q WAVE IN V3/V4, OR R < 0.2 mV IN V4] Compared to ECG 04/14/2022 13:48:50 Myocardial infarct finding now present Atrial fibrillation no longer present Electronically Signed On 08-23-2024 21:12:[address] Mena M.D. [email or web address]
--- NOTE | 2024-08-23 13:11 | W.ED.SOB ---
HPI - SOB/Dyspnea General: Chief Complaint: Shortness of Breath/Dyspnea Stated Complaint: SOB Time Seen by Provider: 08/23/24 13:04 History of Present Illness: HPI Narrative: 74-year-old female with history of pulmonary embolism on Eliquis for anticoagulation, hypertension, diastolic heart failure, pulmonary hypertension, aortic stenosis, atrial fibrillation, and a chronic murmur who presents to the emergency room with shortness of breath. He says over the last few days it has been getting much worse. She has exertional dyspnea. She has worsening orthopnea and has been having to sleep sitting up. She has chronic edema in her legs and says this is not really worse than usual. She has a red area on her right leg that she says is secondary to an injury that looks a lot like venous stasis dermatitis. No chest pain. Her heart rate is in the 150s on presentation and she says she has not noticed palpitations. She says she has had a cough that is productive of sputum. No known fevers. No chest pain. Related Data Home Medications ?Medication ?Instructions ?Recorded ?Confirmed apixaban 5 mg tablet (Eliquis) 5 mg PO BID 08/23/24 08/23/24 metoprolol tartrate 100 mg tablet 150 mg PO BID 08/23/24 08/23/24 Previous Rx's ?Medication ?Instructions ?Recorded albuterol sulfate 90 mcg/actuation 2 puff inhalation Q6H PRN 04/28/21 aerosol inhaler (Ventolin HFA) shortness of breath or wheezing #6.7 grams Allergies Allergy/AdvReac Type Severity Reaction Status Date / Time clarithromycin Allergy ADR-Abdominal Verified 08/23/24 13:35 Pain codeine Allergy ADR-Abdominal Verified 08/23/24 13:35 Pain dexlansoprazole (From Allergy ADR-Back Verified 08/23/24 13:35 Dexilant) Pain duloxetine (From Cymbalta) Allergy ADR-Abdominal Verified 08/23/24 13:35 Pain green tea Allergy ADR-Abdominal Verified 08/23/24 13:35 Pain omeprazole Allergy ADR-Abdominal Verified 08/23/24 13:35 Pain ranitidine Allergy ADR-Abdominal Verified 08/23/24 13:35 Pain Review of Systems Narrative: Constitutional symptoms: Negative except as documented in HPI. Skin symptoms: Negative except as documented in HPI. Eye symptoms: Negative except as documented in HPI. ENMT symptoms: Negative except as documented in HPI. Respiratory symptoms: Negative except as documented in HPI. Cardiovascular symptoms: Negative except as documented in HPI. Gastrointestinal symptoms: Negative except as documented in HPI. Genitourinary symptoms: Negative except as documented in HPI. Musculoskeletal symptoms: Negative except as documented in HPI. Neurologic symptoms: Negative except as documented in HPI. Psychiatric symptoms: Negative except as documented in HPI. Endocrine symptoms: Negative except as documented in HPI. PFSH ED PFSH: Medical History Pulmonary embolism (HFpEF) heart failure with preserved ejection fraction Mild tricuspid regurgitation Mild pulmonary hypertension Mitral regurgitation Aortic stenosis Acute kidney injury superimposed on CKD Bronchitis Renal calculi Left atrial thrombus Atrial fibrillation with rapid ventricular response New onset a-fib Pulmonary embolism, bilateral Holosystolic murmur BPPV (benign paroxysmal positional vertigo) Surgical History S/P hernia surgery S/P appendectomy S/P cholecystectomy S/P tonsillectomy Social History Smoking and tobacco/nicotine status: never used tobacco/nicotine Alcohol intake: never Substance/Drug Use: never Physical Exam Narrative: EXAM NARRATIVE: General: Alert, no acute distress. Skin: Warm, dry. Head: Normocephalic, atraumatic. Neck: Supple, trachea midline. Eye: Extraocular movements are intact. Ears, nose, mouth and throat: mucosa moist. Cardiovascular: Tachycardic, 2-3+ edema of the bilateral extremities with a reddened area on the right murphy. Respiratory: Coarse breath sounds, mild tachypnea Gastrointestinal: Soft, Nontender, Non distended Musculoskeletal: Normal ROM, no deformity. Neurological: Alert and oriented, No focal neurological deficit observed. Psychiatric: Cooperative, appropriate mood & affect. Course Vital Signs: Vital signs: Vital Signs Temperature 98.6 F 08/23/24 13:04 Pulse Rate 148 H 08/23/24 13:04 Respiratory Rate 17 08/23/24 13:04 Pulse Oximetry 95 08/23/24 13:04 MDM - SOB/Dyspnea Medical Decision Making Differential diagnosis for patient with shortness of breath includes but is not limited to and based on the above HPI, review of systems and physical exam: Pneumonia. Bronchitis. Asthma or COPD with acute exacerbation. Acute coronary syndrome / [place]. Pulmonary embolism. Anxiety. Congestive heart failure. Viral infections including influenza and Covid-19. Atrial fibrillation. Anxiety. Pleural effusion. Pneumothorax. Orders placed to evaluate differential diagnosis based on the above differential, HPI and physical exam EKG: Time 1257. Rate 148. Atrial fibrillation with rapid ventricular response, No ST-T changes, no ectopy, This was reviewed and interpreted by myself the ER physician at 1303 Repeat EKG: Time 1438. Rate 132. Atrial fibrillation with rapid ventricular response, No ST-T changes, no ectopy, This was reviewed and interpreted by myself the ER physician at 1440. Rate slightly decreased from previous. Chest x-ray: Large right basilar pleural effusion with some atelectasis. No other infiltrates or effusions. No pneumothorax. This was reviewed and interpreted by myself the emergency room physician. I also reviewed the radiology report. Lab Review: Laboratory results were reviewed and interpreted by myself the emergency room physician. No leukocytosis. No anemia. Mild elevation in patient's creatinine at 1.2 over her baseline of around 1. proBNP is significantly elevated over baseline its at 12,000 today previous was much lower. Baseline troponin is negative at 13. I reviewed the patient's medical record. She does have a history of atrial fibrillation and congestive heart failure. Reexamination: Heart rate has slowed slightly. Now bouncing between around 115 and 140. No altered mental status. No focal motor deficits. She is still very concerned about this chronic right-sided abdominal pain. No oxygen requirements. Consultation: I spoke with Dr. Nash who is on-call for the hospitalist service who agrees to admission. Assessment and plan: A-fib with RVR Congestive heart failure Pleural effusion Edema ?IV diltiazem bolus and IV diltiazem drip ? Holding on diuretics as her pressures been a little soft with the diltiazem -I discussed the patient with the hospitalist on-call who is admitting the patient. - Discussed findings and plan with patient. Answered any questions. - All laboratory values were reviewed and interpreted personally by myself, the ER physician - All imaging was reviewed and interpreted personally by myself, the ER physician. - Evaluation and treatment of this problem were appropriate in the emergency setting Lab Data 08/23/24 13:10 08/23/24 13:10 Labs/Radiology: Radiology Impressions Chest X-Ray 08/23/24 12:54 IMPRESSION: 1. Moderate right pleural effusion with overlying compression. 2. Small left pleural effusion. 3. The cardiomediastinal silhouette appears prominent and is accentuated by AP technique. Laboratory Results WBC 5.58 10^3/uL (3.29-11.43) 08/23/24 13:10 RBC 4.82 10^6/uL (3.85-5.65) 08/23/24 13:10 Hgb 13.00 g/dL (11.27-16.99) 08/23/24 13:10 Hct 43.0 % (36-47) 08/23/24 13:10 MCV 89.2 fl (85-98) 08/23/24 13:10 MCH 27.0 pg (27-33) 08/23/24 13:10 MCHC 30.2 g/dL (30-55) 08/23/24 13:10 RDW 14.2 % (12.1-15.1) 08/23/24 13:10 Plt Count 173 10^3/cmm (157-399) 08/23/24 13:10 MPV 10.9 fL (7.4-10.4) H 08/23/24 13:10 Neut % (Auto) 68.8 % 08/23/24 13:10 Lymph % (Auto) 22.6 % 08/23/24 13:10 Leon % (Auto) 6.8 % 08/23/24 13:10 Eos % (Auto) 0.7 % 08/23/24 13:10 Baso % (Auto) 1.1 % 08/23/24 13:10 Neut # (Auto) 3.84 10^3/uL (1.8-7.7) 08/23/24 13:10 Lymph # (Auto) 1.3 10^3/uL (0.8-4.8) 08/23/24 13:10 Leon # (Auto) 0.4 10^3/uL (0.2-0.9) 08/23/24 13:10 Eos # (Auto) 0.0 10^3/uL (0.0-0.8) 08/23/24 13:10 Baso # (Auto) 0.1 10^3/uL (0.0-0.1) 08/23/24 13:10 Nucleated RBC % (auto) 0 % 08/23/24 13:10 Nucleated RBCs # 0.0 /100WBC 08/23/24 13:10 PT 20.50 SECONDS (12.1-14.9) H 08/23/24 13:10 INR 1.64 (0.8-1.2) H 08/23/24 13:10 Specimen Type Arterial 08/23/24 14:01 Sample Site Radial, right 08/23/24 14:01 ABG pH 7.46 (7.35-7.45) H 08/23/24 14:01 ABG pCO2 42.7 mmHg (35-45) 08/23/24 14:01 ABG pO2 63.4 mmHg (80.0-100.0) L 08/23/24 14:01 ABG PO2/FiO2 Ratio 301 08/23/24 14:01 ABG HCO3 30.2 mmol/L (22-26) H 08/23/24 14:01 ABG O2 Saturation 93.6 08/23/24 14:01 ABG Base Excess 5.7 mmol/L (-2.0-2.0) H 08/23/24 14:01 Lizandro Test Pos 08/23/24 14:01 A-a O2 Gradient 4.2 mmHg (5-10) L 08/23/24 14:01 Hematocrit 39.9 % (37-47) 08/23/24 14:01 Hgb O2 Saturation 92.9 % (95-100) L 08/23/24 14:01 Carboxyhemoglobin 1.3 %THgb (0.4-20.1) 08/23/24 14:01 Methemoglobin < 0.0 % (0.4-1.5) L 08/23/24 14:01 Total Hemoglobin 13.0 g/dL (12-16) 08/23/24 14:01 Sodium 141.0 mmol/L (131-143) 08/23/24 14:01 Potassium 3.7 mmol/L (3.5-5.0) 08/23/24 14:01 Glucose 102.0 mg/dL (70-115) 08/23/24 14:01 Ionized Calcium 1.2 mmol/L (1.1-1.4) 08/23/24 14:01 O2 Delivery Device Room air 08/23/24 14:01 FiO2 21.0 % 08/23/24 14:01 Wood Heel Back Liner ID glc 08/23/24 14:01 Sodium 139 mmol/L (136-145) 08/23/24 13:10 Potassium 4.1 mmol/L (3.5-5.1) 08/23/24 13:10 Chloride 100 mmol/L (98-107) 08/23/24 13:10 Carbon Dioxide 28 mmol/L (22-29) 08/23/24 13:10 Anion Gap 15.1 (5-19) 08/23/24 13:10 BUN 16 mg/dL (8-23) 08/23/24 13:10 Creatinine 1.2 mg/dL (0.5-0.9) H 08/23/24 13:10 GFR Calculation Not Reportable 08/23/24 13:10 Glucose 107 mg/dL (65-115) 08/23/24 13:10 Estimat Average Glucose 108 08/23/24 13:10 Hemoglobin A1c 5.4 % (4.0-6.0) 08/23/24 13:10 Calculated Osmolality 290 mOsm/kg (285-295) 08/23/24 13:10 Lactic Acid 1.5 mmol/L (0.5-2.2) 08/23/24 13:10 Calcium 9.4 mg/dL (8.5-10.5) 08/23/24 13:10 Magnesium 2.0 mg/dL (1.7-2.3) 08/23/24 13:10 Total Bilirubin 1.7 mg/dL (0.15-1.2) H 08/23/24 13:10 AST 39 U/L (0-32) H 08/23/24 13:10 ALT 16 U/L (0-33) 08/23/24 13:10 Alkaline Phosphatase 139 U/L (35-105) H 08/23/24 13:10 Troponin T Baseline 13 ng/L (0-10) H 08/23/24 13:10 NT-Pro-B Natriuret Pep 93153 pg/mL (0-450) H 08/23/24 13:10 Total Protein 6.8 g/dL (6.6-8.7) 08/23/24 13:10 Albumin 4.0 g/dL (3.5-5.2) 08/23/24 13:10 Globulin 2.8 g/dL (1.3-4.6) 08/23/24 13:10 TSH 0.01 uIU/mL (0.27-4.20) L 08/23/24 13:10 All radiology interpretation(s) finalized by discharge Discharge Plan Discharge Admit Provider: Sylvain Nash Condition: Stable Coding Level of Care Code ED Director Of Physical Security for Dmitriyg Saúl
[2024-08-23 13:25] LABS: Basophils # 0.1 10^3/uL (0.0-0.1); Basophils % 1.1 %; Eosinophils % 0.7 %; Lymphocytes # 1.3 10^3/uL (0.8-4.8); Lymphocytes % 22.6 %; Mean Corpuscular HGB Conc 30.2 g/dL (30-55); Mean Corpuscular Volume 89.2 fl (85-98); Mean Platelet Volume 10.9 fL (7.4-10.4); Monocytes # 0.4 10^3/uL (0.2-0.9); Monocytes % 6.8 %; Neutrophils # 3.84 10^3/uL (1.8-7.7); Neutrophils % 68.8 %; Nucleated Red Blood Cells % 0 %; Platelet Count 173 10^3/cmm (157-399); Red Blood Count 4.82 10^6/uL (3.85-5.65); Red Cell Distribution Width 14.2 % (12.1-15.1); White Blood Count 5.58 10^3/uL (3.29-11.43)
[2024-08-23] MEDS: dilTIAZem 5 mg/mL SDV 5 mL 10 MG IVP (13:30)
--- NOTE | 2024-08-23 13:43 | ECG_ITS ---
[facility] Test Date: 2024-08-23 Pat Name: Carolina Lockhart Department: Room: Gender: Female Candlemaker: : 1950 Requested By: Debbie Quinones Order Number: [id number] Shanna MD: Lane Mena M.D. Measurements Intervals [place] Rate: 127 P: 0 AR: 0 QRS: 113 QRSD: 75 T: 48 QT: 347 QTc: 506 Interpretive Statements ATRIAL FLUTTER/TACHYCARDIA WITH RAPID VENTRICULAR RESPONSE POSSIBLE RIGHT VENTRICULAR HYPERTROPHY [SOME/ALL OF: PROMINENT R IN V1, LATE TRANSITION, RAD, SKYLER, SSS] POSSIBLE ANTERIOR MYOCARDIAL INFARCTION , PROBABLY OLD [30 ms Q WAVE IN V3/V4, OR R < 0.2 mV IN V4] Compared to ECG 08/23/2024 12:57:26 No significant changes Electronically Signed On 08-23-2024 21:12:[address] Mena M.D. [id number] [id number]
[2024-08-23 13:48] LABS: Lactic Sepsis W/Reflex 1.5 mmol/L (0.5-2.2)
[2024-08-23 13:50] LABS: Troponin(5th) Baseline 13 ng/L (0-10)
[2024-08-23 13:51] LABS: INR 1.64 (0.8-1.2)
[2024-08-23] MEDS: dilTIAZem 100 MG in sodium chloride 0.9% (add-van) 100 ML IV (14:01)
[2024-08-23 14:06] LABS: Alanine Aminotransferase 16 U/L (0-33); Alkaline Phosphatase 139 U/L (35-105); Aspartate Amino Transferase 39 U/L (0-32); Blood Urea Nitrogen 16 mg/dL (8-23); Calcium 9.4 mg/dL (8.5-10.5); Carbon Dioxide 28 mmol/L (22-29); Chloride 100 mmol/L (98-107); Creatinine Clr Calc Pharmacy 41.2722; Globulin 2.8 g/dL (1.3-4.6); Glucose 107 mg/dL (65-115); NT Pro B Type Natriuretic Pept 12084 pg/mL (0-450); Osmolality Calculated 290 mOsm/kg (285-295); Sodium 139 mmol/L (136-145); Thyroid Stimulating Hormone 0.01 uIU/mL (0.27-4.20); Total Bilirubin 1.7 mg/dL (0.15-1.2); Total Protein 6.8 g/dL (6.6-8.7)
[2024-08-23 14:08] LABS: Anion Gap 15.1 (5-19); Potassium 4.1 mmol/L (3.5-5.1)
[2024-08-23 14:12] LABS: ABG PCO2 42.7 mmHg (35-45); ABG PH Result 7.46 (7.35-7.45); Alveolar-Arterial Oxygen Gradi 4.2 mmHg (5-10); Arterial Blood Gas Hematocrit 39.9 % (37-47); Base Excess ABG 5.7 mmol/L (-2.0-2.0); Blood Gas Allen Test Pos; Blood Gas Operator Identificat glc; Blood Gas Sample Site Radial, right; Blood Gas Sample Type Arterial; Carboxyhemoglobin 1.3 %THgb (0.4-20.1); HCO3 ABG 30.2 mmol/L (22-26); HGB O2 Sat 92.9 % (95-100); Ionized Calcium Level - ABG 1.2 mmol/L (1.1-1.4); Methemoglobin < 0.0 % (0.4-1.5); Oxygen Device ROOM AIR; Oxygen Saturation ABG 93.6; PO2 ABG 63.4 mmHg (80.0-100.0); PO2 FiO2 Ratio Arterial Blood 301; Potassium Level - ABG 3.7 mmol/L (3.5-5.0)
--- NOTE | 2024-08-23 15:00 | ECG_ITS ---
[facility] Date: 2024-08[facility]23 Pat Name: Carolina Lockhart Department: Room: Gender: Female Manager Unit: : 1950 Requested By: Debbie Quinones Order Number: [id number] Shanna MD: Lane Mena M.D. Measurements Intervals [place] Rate: 132 P: 0 CO: 0 QRS: 125 QRSD: 112 T: 55 QT: 304 QTc: 452 Interpretive Statements ATRIAL FLUTTER/TACHYCARDIA WITH RAPID VENTRICULAR RESPONSE POSSIBLE RIGHT VENTRICULAR HYPERTROPHY [SOME/ALL OF: PROMINENT R IN V1, LATE TRANSITION, RAD, SKYLER, SSS] POSSIBLE ANTERIOR MYOCARDIAL INFARCTION , PROBABLY OLD [30 ms Q WAVE IN V3/V4, OR R < 0.2 mV IN V4] Compared to ECG 08/23/2024 13:48:58 No significant changes Electronically Signed On 08-23-2024 21:19:[address] Mena M.D. [id number] [id number]
--- NOTE | 2024-08-23 15:05 | USR_ITS ---
PROCEDURE INFORMATION: Exam: US Abdomen Complete Exam date and time: 08/23/2024 3:47 PM Age: 74 years old Clinical indication: Abdominal pain; Prior surgery; Surgery date: 6+ months; Surgery type: Gb and appendix removed; Additional info: Ruq abdominal pain, HX of cholecystectomy TECHNIQUE: Imaging protocol: Real-time ultrasound of the abdomen with image documentation. Complete exam. COMPARISON: CT angio chest w abd pel w con 04/14/2022 1:07 PM FINDINGS: Liver: The liver measures 14.5 cm. Patchy increased echogenicity of the liver. Gallbladder: Status post cholecystectomy. Biliary ducts: The common bile duct measures 3 mm. Pancreas: Visualized portions of the pancreas are unremarkable. Right kidney: The right kidney measures 9.7 cm. No right-sided hydronephrosis. Left kidney: The left kidney measures 9.3 cm. No left-sided hydronephrosis. Proximal left ureter is dilated measuring 1.5 cm. Spleen: The spleen measures 9.7 cm. Aorta: Normal. No aneurysm. Inferior vena cava: Normal. Portal venous: The portal vein appears patent. Peak systolic velocity is 31 cm/s. US/US abdomen complete* [id number] IMPRESSION: 1. Increased echogenicity of the liver which may represent hepatic steatosis versus diffuse hepatocellular disease. 2. The left proximal ureter is dilated measuring up to 1.5 cm. No significant left-sided hydronephrosis.
--- NOTE | 2024-08-23 15:12 | P.HP_ITS ---
Providers/Chief Complaint 2 Admitting Physician: Sylvain Nash MD Chief Complaint: SOB History of Present Illness Carolina Lockhart is a 74 year old female with a past medical history of atrial fibrillation, on Eliquis therapy, history of left atrial thrombus, history of pulmonary embolism, moderate mitral stenosis, hypertension, asthma who presents [facility] due to increased lower extremity edema bilaterally, shortness of breath, with exertion, he also complains of right upper quadrant pain, status post cholecystectomy, no fevers, chills, nausea, vomiting, no chest pain, no lightheadedness, no dizziness Review of Systems 2 Const: Denies: fever(s) Eyes: Denies: change in vision Card: Denies: chest pain Resp: Reports: dyspnea : Denies: flank pain Medications/Allergies Home Medications ?Medication ?Instructions ?Recorded ?Confirmed ?Last Taken ?Type albuterol sulfate 90 mcg/actuation 2 puff inhalation Q 6H PRN 04/28/21 08/23/24 Unknown Rx aerosol inhaler (Ventolin HFA) shortness of breath or wheezing #6.7 grams apixaban 5 mg tablet (Eliquis) 5 mg PO BID 08/23/24 Unknown History metoprolol tartrate 100 mg tablet 150 mg PO BID 08/23/24 Unknown History Allergies Allergy/AdvReac Type Severity Reaction Status Date / Time clarithromycin Allergy ADR-Abdominal Verified 08/23/24 13:35 Pain codeine Allergy ADR-Abdominal Verified 08/23/24 13:35 Pain dexlansoprazole (From Allergy ADR-Back Verified 08/23/24 13:35 Dexilant) Pain duloxetine (From Cymbalta) Allergy ADR-Abdominal Verified 08/23/24 13:35 Pain green tea Allergy ADR-Abdominal Verified 08/23/24 13:35 Pain omeprazole Allergy ADR-Abdominal Verified 08/23/24 13:35 Pain ranitidine Allergy ADR-Abdominal Verified 08/23/24 13:35 Pain PFSH Acute 2 PFSH: Medical History Pulmonary embolism (HFpEF) heart failure with preserved eje ction fraction Mild tricuspid regurgitation Mild pulmonary hypertension Mitral regurgitation Aortic stenosis Acute kidney injury superimposed on CKD Bronchitis Renal calculi Left atrial thrombus Atrial fibrillation with rapid ventricular response New onset a-fib Pulmonary embolism, bilateral Holosystolic murmur BPPV (benign paroxysmal positional vertigo) Surgical History S/P hernia surgery S/P appendectomy S/P cholecystectomy S/P tonsillectomy Social History Smoking and tobacco/nicotine status: never used tobacco/nicotine Alcohol intake: never Substance/Drug Use: never Vitals/I&O/Wt Last Vital Signs Temp 98.6 F 08/23/24 13:04 Pulse 148 H 08/23/24 13:04 Resp 17 08/23/24 13:04 Pulse Ox 95 08/23/24 13:04 08/23/24 08/23/24 08/23/24 06:59 14:59 22:59 Intake Total 1.917 / 1.917 Balance 1.917 / 1.917 Weight last 48 hrs Weight 85.275 kg Physical Exam 2 Const: COMMON NORMALS: no acute distress and patient oriented x3 Eye: COMMON NORMALS: Equal, round and reactive pupils present Resp: COMMON NORMALS: normal respiratory effort, No retractions, No use of accessory muscles and clear to auscultation bilaterally AUSCULTATION: vern chua Cardio: COMMON NORMALS: no JVD, regular rate, regular rhythm, S1 normal heart sound present and S2 normal heart sound present RATE: regular rate RHYTHM: regular rhythm HEART SOUNDS: S1 normal heart sound present and S2 normal heart sound present GI: COMMON NORMALS: Normal to inspection, nondistended, normoactive bowel sounds present, Soft to palpation and non-tender Extremity: NARRATIVE EXTREMITY EXAM: 2+ edema Neuro: COMMON NORMALS: patient oriented x3, CN's II-XII intact bilaterally and moves all extremities Psych: COMMON NORMALS: mental status grossly normal Data 08/23/24 13:10 08/23/24 13:10 Micro: Microbiology 08/23/24 13:10 Blood Culture - Preliminary Blood SPECIMEN COLLECTED 08/23/24 13:15 Blood Culture - Preliminary Blood SPECIMEN COLLECTED A&P Assessment and plan (1) Atrial fibrillation with rapid ventricular response: (2) CHF exacerbation: (3) RUQ abdominal pain: Plan Atrial fibrillation with rapid ventricular response - Cardizem drip - Metoprolol 50 twice daily - Eliquis 5 mg twice daily -cardiac echo Systolic and diastolic CHF exacerbation -Lasix 40 IV twice daily -Fluid restrictions, creatinine, potassium - Cardiac echo - Monitor creatinine, monitor urine output Right upper quadrant abdominal, ultrasound abdomen -Possible congestive hepatopathy from heart failure? - History of cholecystectomy - GGT, lipase ultrasound abdomen TSH low at 0.01, T3, T4 History of pulmonary edema, continue Eliquis History of left atrial appendage, left atrial thrombus, continue with eliquis Full code Eliquis for DVT prophylaxis PDMP PDMP Reviewed: Not Reviewed Attestations 2 Medical Necessity Statement*: Patient requires hospitalization, inpatient, greater than 2 midnights, for A-fib with RVR, systolic CHF exacerbation, Diagnoses Atrial fibrillation with rapid ventricular response I48.91 CHF exacerbation I50.9 RUQ abdominal pain R10.11
[2024-08-23 15:20] LABS: Bacteria Urine None Seen /hpf; Hyaline Casts Urine 2.87 /lpf; RBC Urine 0-2 /hpf (0-2); Squamous Epithelial Cell Urine 0-5 /hpf (0-5); WBC Urine 0-5 /hpf (0-5)
[2024-08-23 15:23] LABS: Bilirubin Urine Neg (Negative); Blood Urine Neg (Negative); Glucose Urine UA Norm (Normal); Ketones Urine Negative (Negative); Leukocyte Esterase Urine Negative (Negative); Nitrate Urine Negative (Negative); Protein Urine Neg (Negative); Specific Gravity, Urine 1.005 (1.005-1.030); Urine Appearance Clear (CLEAR); Urine Color Yellow (Yellow); Urobilinogen Urine Neg (Negative); pH Urine 6 (5-7)
[2024-08-23 15:30] LABS: Estmated Average Glucose 108; Hemoglobin A1C 5.4 % (4.0-6.0)
[2024-08-23] MEDS: FUROsemide 10 mg/mL SDV 4mL 40 MG IVP (15:35)
[2024-08-23] MEDS: pantoprazole 40 mg SDV IVP (15:36)
[2024-08-23 15:38] LABS: Chol HDL Ratio 2.62 mg/dL (0.0-4.40); Cholesterol 131 mg/dL (0-200); HDL Cholesterol 50 mg/dL (60-100); LDL Cholesterol Calculated 62 mg/dL (50-129); LDL HDL Ratio 1.24 RATIO (0.00-3.22); Lipase 55 U/L (13-60); Thyroid Stimulating Hormone 0.01 uIU/mL (0.27-4.20); Triglycerides 93 mg/dL (0-150)
[2024-08-23 15:53] LABS: Gamma Glutamyl Transferase 101 U/L (5-36)
[2024-08-23 16:17] LABS: Free T4 Free Thyroxine 2.38 ng/dL (0.82-1.77); T3 Free 5.2 PG/ML (2.0-4.4)
--- NOTE | 2024-08-23 16:38 | PC.NURSE ---
Admit Note Patient admitted to room 103 from ER via stretcher. Covering service notified. Patient presents with SOB, Afib w/RVR. Orders reviewed & will continue to monitor. initial BP-124/89, HR-149, afib rvr. Pt denies any pain, has shortness of breath. right lung diminished. Patient and/or sales representative womens health oriented to environment, equipment, and informed of the following as found in the admission booklet: patient rights & responsibilities, visitor policy, hand and respiratory hygiene practice. Other education includes: continue on cardizem drip, check ultrasound on thyroid and Echocardiogram,ff-up with abdomen chrystal. Patient and/or sales representative womens health [ResponseToTeaching].
[2024-08-23] MEDS: methIMAzole 5 MG Tablet 10 MG PO (18:02)
[2024-08-23] MEDS: metoprolol tartrate 50 mg Tablet PO (18:03)
[2024-08-23] MEDS: apixaban 5 mg Tablet PO (18:10)
--- NOTE | 2024-08-23 19:00 | ECG_ITS ---
[facility] Test Date: 2024-08-23 Pat Name: Carolina Lockhart Department: Room: 103 Gender: Female Certified Scrum Master: : 1950 Requested By: Debbie Quinones Order Number: [id number] Otero MD: Lane Mena M.D. Measurements Intervals [place] Rate: 125 P: 0 [place]: 0 QRS: 89 QRSD: 91 T: 28 QT: 325 QTc: 469 Interpretive Statements ATRIAL FLUTTER/TACHYCARDIA WITH RAPID VENTRICULAR RESPONSE MINIMAL ST DEPRESSION [0.025+ mV ST DEPRESSION] ABNORMAL RHYTHM ECG Compared to ECG 08/23/2024 14:38:00 ST (T wave) deviation now present Myocardial infarct finding no longer present Electronically Signed On 08-23-2024 21:18:[address] Mena M.D. [id number] [id number]
[2024-08-23 19:39] LABS: Troponin 5 6HR 14.53 ng/L (0-10); Troponin 5 6HR Delta 1.53 ng/L (0-12)
[2024-08-23] MEDS: dilTIAZem 100 MG in sodium chloride 0.9% (add-van) 100 ML 10 MG IV (20:55)
[2024-08-24] VITALS (9 sets, daily range): BP systolic 89–118; BP diastolic 41–85; PULSE 67–125; RESP 16–23; TEMP 36.6–37.6; O2SAT 92–99
[2024-08-24 03:11] LABS: Basophils # 0.1 10^3/uL (0.0-0.1); Basophils % 1.3 %; Eosinophils # 0.1 10^3/uL (0.0-0.8); Eosinophils % 2.6 %; Lymphocytes # 1.6 10^3/uL (0.8-4.8); Lymphocytes % 34.2 %; Mean Corpuscular HGB Conc 30.3 g/dL (30-55); Mean Corpuscular Hemoglobin 27.2 pg (27-33); Mean Corpuscular Volume 89.8 fl (85-98); Mean Platelet Volume 11.3 fL (7.4-10.4); Monocytes # 0.4 10^3/uL (0.2-0.9); Neutrophils # 2.45 10^3/uL (1.8-7.7); Neutrophils % 52.7 %; Nucleated Red Blood Cells % 0 %; Platelet Count 166 10^3/cmm (157-399); Red Blood Count 4.12 10^6/uL (3.85-5.65); Red Cell Distribution Width 14.4 % (12.1-15.1); White Blood Count 4.65 10^3/uL (3.29-11.43)
[2024-08-24 03:39] LABS: Free T4 Free Thyroxine 2.22 ng/dL (0.82-1.77); NT Pro B Type Natriuretic Pept 8223 pg/mL (0-450); T3 Free 4.5 PG/ML (2.0-4.4)
[2024-08-24 03:43] LABS: Thyroid Stimulating Hormone 0.02 uIU/mL (0.27-4.20)
[2024-08-24 03:46] LABS: Alanine Aminotransferase 11 U/L (0-33); Albumin Level 3.5 g/dL (3.5-5.2); Alkaline Phosphatase 111 U/L (35-105); Anion Gap 15.6 (5-19); Aspartate Amino Transferase 26 U/L (0-32); Blood Urea Nitrogen 18 mg/dL (8-23); Calcium 8.8 mg/dL (8.5-10.5); Carbon Dioxide 28 mmol/L (22-29); Chloride 101 mmol/L (98-107); Creatinine Clr Calc Pharmacy 35.9638; Globulin 2.3 g/dL (1.3-4.6); Glucose 108 mg/dL (65-115); Magnesium 1.9 mg/dL (1.7-2.3); Osmolality Calculated 294 mOsm/kg (285-295); Phosphorus 3.5 mg/dL (2.5-4.5); Potassium 3.6 mmol/L (3.5-5.1); Sodium 141 mmol/L (136-145); Total Bilirubin 1.2 mg/dL (0.15-1.2); Total Protein 5.8 g/dL (6.6-8.7)
[2024-08-24] MEDS: FUROsemide 10 mg/mL SDV 4mL 40 MG IVP (04:00)
[2024-08-24] MEDS: methIMAzole 5 MG Tablet 10 MG PO (08:38)
[2024-08-24] MEDS: metoprolol tartrate 50 mg Tablet PO ×2 (08:39→17:32)
[2024-08-24] MEDS: apixaban 5 mg Tablet PO ×2 (08:39→17:31)
[2024-08-24 09:49] LABS: Iron 32 ug/dL (37-145); Percent Saturation 12.4 % (20-50); Total Iron Binding Capacity 257 mcg/dl; Unsaturated Iron Binding 225 ug/dL (112-347); Vitamin B12 190 pg/mL (232-1245)
[2024-08-24] MEDS: amiodarone 150 MG/100 ML PREMIX 400 MG IV (09:50)
--- NOTE | 2024-08-24 10:52 | PC.CHAP ---
Pastoral Care Encounter/Spiritual Assessment Type of Contact [] Declined scrap carrier visit [] Patient/Family/Request visit [] Outpatient visit [] Follow-up visit [] Physician referral [] Code/Alert [x] Routine visit [] Staff referral [] Actively dying [] Patient sleeping [] Family support [] [] Out of room [] Palliative care [] [] Receiving care in room [] Pre-surgical visit [] Trauma [] Long length of stay [] ICU visit [] Other: Relational/Emotional Strength [] Patient feels connected with others/family/visitors/staff [] Distress [] Loneliness/isolation [] Abandonment Spirituality of Patient [x] Person of Katherine [] Attends Zoroastrianism of their Katherine [x] Believes in Prayer [] Reads Bible or Sikh materials [] There are Spiritual issues to be addressed Environmental Services Worker Interventions [x] Prayer [x] Active listening [] Non-anxious presence [] Spiritual/emotional support [] Crisis/trauma care [] Spiritual counseling [] Bereavement support [] Provided bereavement packet [x] Provided Bible/devotional materials [] Provided toy/stuffed animal, coloring book to patient or family member [] Provided Communion [] Anointing/[place] [] Salvation [x] Completed spiritual assessment [] Other: Impact on Illness or Injury [] Angry [] Fearful [] Anxious [] Often cries [] Exhaustion [] Unable to work [] Unable to attend mu-ism [] Unable to walk/stand [] Unable to read [] Unable to drive [] Unable to eat/drink [] Unable to sleep [] Unable to be with family [] Patient intubated [] Other: Summary Time spent with patient 10 min
--- NOTE | 2024-08-24 14:09 | P.PN_ITS ---
Subjective 2 Subjective: Hospital course, labs appreciated. On examination patient sitting at edge of the bed. States feeling better. Breathing has improved from before. Denies any nausea, vomiting, headache. Heart rate continues to remain elevated to more than 120. Patient denies feeling palpitations. States she feels as if she is missing her beats on and off. Vitals/I&O/Wt Last Vital Signs Temp 98.1 F 08/24/24 12:00 Pulse 104 H 08/24/24 12:00 Resp 20 H 08/24/24 12:00 BP 90/56 08/24/24 12:00 Pulse Ox 94 08/24/24 12:00 O2 Del Method Room Air 08/24/24 12:00 08/23/24 08/24/24 08/24/24 22:59 06:59 14:59 Intake Total 442.250 / 444.167 41.459 / 485.626 251.667 / 251.667 Output Total 1050 / 1050 300 / 1350 1850 / 1850 Balance -607.750 / -605.833 -258.541 / -864.374 -1598.333 / -1598.333 Weight last 48 hrs Weight 87.997 kg Weight 88.082 kg Weight 85.275 kg Physical Exam 2 Const: COMMON NORMALS: no acute distress and patient oriented x3 Eye: COMMON NORMALS: Equal, round and reactive pupils present PUPIL: Yes Equal, round and reactive pupils present Neck/C-Spine: COMMON NORMALS: no JVD Resp: COMMON NORMALS: normal respiratory effort, No retractions, No use of accessory muscles and clear to auscultation bilaterally AUSCULTATION: clear to auscultation bilaterally and crackles Cardio: COMMON NORMALS: no JVD, regular rate, regular rhythm, S1 normal heart sound present and S2 normal heart sound present RATE: regular rate RHYTHM: regular rhythm HEART SOUNDS: S1 normal heart sound present and S2 normal heart sound present GI: COMMON NORMALS: Normal to inspection, nondistended, normoactive bowel sounds present, Soft to palpation and non-tender PALPATION: Yes Soft to palpation Extremity: NARRATIVE EXTREMITY EXAM: 2+ edema Neuro: COMMON NORMALS: patient oriented x3, CN's II-XII intact bilaterally and moves all extremities Psych: COMMON NORMALS: mental status grossly normal Data 08/24/24 02:39 08/24/24 02:39 Micro: Microbiology 08/23/24 13:15 Blood Culture - Preliminary Blood NEGATIVE TO DATE 08/23/24 13:10 Blood Culture - Preliminary Blood NEGATIVE TO DATE A&P Assessment and plan (1) Atrial fibrillation with rapid ventricular response: (2) CHF exacerbation: (3) RUQ abdominal pain: (4) (HFpEF) heart failure with preserved ejection fraction: (5) Hyperthyroidism determined by thyroid function test: Plan Atrial fibrillation with rapid ventricular response: Most likely in setting of significant hyperthyroidism. Continue with metoprolol 50 mg twice daily. Heart rate remains elevated. Stop Cardizem drip. Switch to amiodarone 150 mg IV bolus followed by IV drip. Echocardiogram once heart rate below 100. Continue with Eliquis 5 mg twice daily. Will uptitrate metoprolol depending on the blood pressures. Congestive heart failure: Acute decompensated congestive heart failure. History of diastolic heart failure in the past. Repeat echocardiogram once heart below 100. Patient overall around 1 L negative in last 24 hours. Creatinine trending up today. Hold off on Lasix for now. Depending on urine output in next 1 to 4 hours we will plan for further IV diuresis. Fluid restriction to less than 1500 cc. Monitor electrolytes. Hyperthyroidism: TSH low. Free T3 free T4 found to be high elevated. Thyroid ultrasound shows heterogeneous coarse thyroid with micro nodularity and increase vascularity with concerns for thyroiditis. Symptoms have been ongoing even before amiodarone could be started. Patient states she has been having difficulty in swallowing with neck pain on and off for last 3 to 4 years. Follow-up thyroglobulin antibody and TPO antibodies, TSH immunoglobulin antibody. Patient will need to follow-up with endocrinology as an outpatient. For now continue with methimazole 10 mg oral daily. History of pulmonary embolism/history of left atrial appendage thrombus: Continue with Eliquis as above. Full code Cardiac diet Protonix for PUD prophylaxis Eliquis will be sufficient for DVT prophylaxis. PDMP PDMP Reviewed: Not Reviewed Attestations 2 Medical Necessity Statement*: Requires further hospitalization for management of congestive heart failure, atrial fibrillation with rapid ventricular response in a patient with concerns for significant hyperthyroidism Diagnoses Atrial fibrillation with rapid ventricular response I48.91 CHF exacerbation I50.9 RUQ abdominal pain R10.11 (HFpEF) heart failure with preserved ejection fraction I50.30 Hyperthyroidism determined by thyroid function test E05.90; R94.6
[2024-08-24 15:15] LABS: Anion Gap 14.7 (5-19); Blood Urea Nitrogen 16 mg/dL (8-23); Calcium 8.7 mg/dL (8.5-10.5); Carbon Dioxide 30 mmol/L (22-29); Chloride 99 mmol/L (98-107); Creatinine Clr Calc Pharmacy 35.9638; Glucose 107 mg/dL (65-115); Osmolality Calculated 292 mOsm/kg (285-295); Potassium 3.7 mmol/L (3.5-5.1); Sodium 140 mmol/L (136-145)
--- NOTE | 2024-08-24 15:25 | PC.NURSE ---
Addendum entered by Tessie Etienne RN 08/24/24 15:25: informed Dr Coleman. Received order to give GI cocktail x1. Original Note: This patient is c/o feeling off to her abdomen/full (does not feel well). She reports feeling this way since amiodarone was started.
--- NOTE | 2024-08-24 15:49 | USCV_ITS ---
Richy Vanessajuancarlos Age: 74 Gender: F : 1950 Exam Date: 08/24/2024 10:52 Ordering Phys: Sylvain Nash MD Technologist: MOHIT Exam Location: [facility] Indication: SoB BP: 99 / 63 HR: 72 Rhythm: Sinus Technical Quality: Adequate MEASUREMENTS (Male / Female) Normal Values 2D ECHO LV Diastolic Diameter PLAX 3.8 cm 4.2 - 5.9 / 3.9 - 5.3 cm IVS Diastolic Thickness 1.3 cm 0.6 - 1.0 / 0.6 - 0.9 cm IVS Systolic Thickness 1.7 cm LVPW Diastolic Thickness 0.9 cm 0.6 - 1.0 / 0.6 - 0.9 cm LVPW Systolic Thickness 1.4 cm LVOT Diameter 2.0 cm LV Ejection Fraction 2D Teich 50.4 % LV Ejection Fraction MOD 4C 27.8 % LV Ejection Fraction MOD 2C 65.5 % LV Ejection Fraction 2C AL 64.8 % LA Diameter 4.5 cm RA Systolic Volume 4C AL 54.5 ml RA Systolic Volume 4C MOD 52.6 ml LA Sys Volume AL 88.9 cm cubed LA Sys Volume Index AL 44.1 cm cubed/m squared Aorta at Sinotubular Diameter 2.8 cm IVC Diameter 2.0 cm M-MODE LA Ao Ratio MM 2.7 AV Cusp Separation MM 1.2 cm DOPPLER AV Peak Velocity 298.0 cm/s LVOT Peak Velocity 70.0 cm/s AV Area Cont Eq vti 0.7 cm squared AV Area Cont Eq pk 0.7 cm squared MV Peak Velocity 203.0 cm/s MV Area PHT 4.1 cm squared Mitral E to A Ratio 1.9 TR Peak Velocity 256.0 cm/s TR Peak Gradient 26.2 mmHg TR Mean Velocity 248.0 cm/s TR Mean Gradient 26.9 mmHg TR Velocity Time Integral 112.6 cm TV Peak E Velocity 82.0 cm/s PV Peak Velocity 114.0 cm/s FINDINGS Left Ventricle Left ventricle is normal in size. LV systolic function is normal with EF 55 to 60%. No regional wall motion abnormalities seen Right Ventricle Normal in size and function Right Atrium Normal in size Left Atrium Dilated Mitral Valve Severe mitral annular calcification. Moderate mitral stenosis with mean gradient across mitral valve 5.02 mmHg. Mild to moderate mitral regurgitation. Aortic Valve Aortic valve is thickened and calcified. Moderate to severe aortic stenosis with aortic valve area of 0.85 cm squared and mean gradient across aortic valve 21 mmHg Vmax is 2.94m/s Tricuspid Valve Moderate tricuspid regurgitation. RVSP is 40-45 mmHg. This is consistent with mild pulmonary hypertension Pulmonic Valve Not well visualized Pericardium Normal Aorta Normal in size IVC Appears to be dilated CONCLUSIONS LV systolic function is normal with EF of 55-60% Left atrial dilation Moderate mitral stenosis Mild to moderate mitral regurgitation Moderate to severe aortic stenosis Moderate tricuspid regurgitation Mild pulmonary hypertension Compared to prior echocardiogram from 2021, patient now has moderate mitral stenosis and aortic stenosis has progressed. Pepe Rao MD (Electronically Signed) Final Date: 26 August 2024 08:01 S
[2024-08-24] MEDS: pantoprazole 40 mg SDV IVP (16:47)
--- NOTE | 2024-08-24 17:16 | US_ITS ---
WS: [id number] ULTRASOUND THYROID TECHNIQUE: Ultrasound of the thyroid. CLINICAL INFORMATION: hyperthyroid COMPARISON: None. FINDINGS: Thyroid: Coarse heterogeneous thyroid echotexture bilaterally. Slight micronodularity. No dominant nodules. No associated increased vascularity. Findings can be seen with thyroiditis. Right thyroid lobe: 3.1 cm x 1.4 cm x 2.3 cm Left thyroid lobe: 3.2 cm x 1.4 cm x 2.0 cm. Isthmus: 0.2 mm. Cervical lymphadenopathy: None. US/US thyroid 79749 IMPRESSION: Heterogeneous coarse thyroid with micronodularity and increased vascularity taty picious for thyroiditis. Recommend correlation with thyroid function studies an d history of Coleman's thyroiditis
[2024-08-24] MEDS: lidocaine 2% viscous 15 ML, aluminum-mag hydrox-simethicon 30 ML, sucralfate oral liq 1 GM PO (17:31)
[2024-08-25] VITALS (9 sets, daily range): BP systolic 99–130; BP diastolic 62–88; PULSE 84–110; RESP 19–29; TEMP 36.6–37.1; O2SAT 93–98
[2024-08-25 04:45] LABS: Basophils # 0.1 10^3/uL (0.0-0.1); Basophils % 1.1 %; Eosinophils # 0.1 10^3/uL (0.0-0.8); Eosinophils % 3.2 %; Hematocrit 38.1 % (36-47); Lymphocytes # 1.5 10^3/uL (0.8-4.8); Lymphocytes % 33.6 %; Mean Corpuscular HGB Conc 29.9 g/dL (30-55); Mean Corpuscular Hemoglobin 26.7 pg (27-33); Mean Corpuscular Volume 89.2 fl (85-98); Mean Platelet Volume 11.4 fL (7.4-10.4); Monocytes # 0.5 10^3/uL (0.2-0.9); Monocytes % 11.7 %; Neutrophils # 2.23 10^3/uL (1.8-7.7); Neutrophils % 50.2 %; Nucleated Red Blood Cells % 0 %; Platelet Count 154 10^3/cmm (157-399); Red Blood Count 4.27 10^6/uL (3.85-5.65); Red Cell Distribution Width 14.3 % (12.1-15.1); White Blood Count 4.44 10^3/uL (3.29-11.43)
[2024-08-25 05:05] LABS: Magnesium 1.9 mg/dL (1.7-2.3)
[2024-08-25 05:08] LABS: Alanine Aminotransferase 11 U/L (0-33); Albumin Level 3.4 g/dL (3.5-5.2); Alkaline Phosphatase 103 U/L (35-105); Anion Gap 11.7 (5-19); Aspartate Amino Transferase 25 U/L (0-32); Blood Urea Nitrogen 16 mg/dL (8-23); Calcium 8.8 mg/dL (8.5-10.5); Carbon Dioxide 34 mmol/L (22-29); Chloride 100 mmol/L (98-107); Creatinine Clr Calc Pharmacy 38.7302; Globulin 2.5 g/dL (1.3-4.6); Glucose 95 mg/dL (65-115); Osmolality Calculated 295 mOsm/kg (285-295); Potassium 3.7 mmol/L (3.5-5.1); Sodium 142 mmol/L (136-145); Total Bilirubin 0.7 mg/dL (0.15-1.2); Total Protein 5.9 g/dL (6.6-8.7)
[2024-08-25 05:23] LABS: Folate Level 9.4 ng/mL (4.8-37.3)
[2024-08-25 07:10] LABS: T4 Total 9.6 mcg/dL (5.1-11.9)
[2024-08-25] MEDS: metoprolol tartrate 50 mg Tablet PO ×2 (08:22→17:31)
[2024-08-25] MEDS: methIMAzole 5 MG Tablet 10 MG PO (08:22)
[2024-08-25] MEDS: apixaban 5 mg Tablet PO ×2 (08:22→17:31)
[2024-08-25] MEDS: FUROsemide 10 mg/mL SDV 4mL 40 MG IVP ×2 (09:04→20:17)
[2024-08-25] MEDS: amiodarone 200 mg Tablet PO ×2 (09:04→17:31)
--- NOTE | 2024-08-25 11:46 | P.PN_ITS ---
Subjective 2 Subjective: No acute events overnight. Patient sitting up in bed. Denies any nausea, vomiting, headache. States feeling better. Heart rate better controlled. Vitals/I&O/Wt Last Vital Signs Temp 98.0 F 08/25/24 11:16 Pulse 91 08/25/24 11:16 Resp 23 H 08/25/24 11:16 BP 118/76 08/25/24 11:16 Pulse Ox 95 08/25/24 11:16 O2 Del Method Room Air 08/25/24 11:16 08/24/24 08/25/24 08/25/24 22:59 06:59 14:59 Intake Total 320 / 571.667 0 / 571.667 200 / 200 Output Total 350 / 2200 450 / 2650 900 / 900 Balance -30 / -1628.333 -450 / -2078.333 -700 / -700 Weight last 48 hrs Weight 87.997 kg Weight 88.082 kg Weight 85.275 kg Physical Exam 2 Const: COMMON NORMALS: no acute distress and patient oriented x3 Eye: COMMON NORMALS: Equal, round and reactive pupils present PUPIL: Yes Equal, round and reactive pupils present Neck/C-Spine: COMMON NORMALS: no JVD Resp: COMMON NORMALS: normal respiratory effort, No retractions, No use of accessory muscles and clear to auscultation bilaterally AUSCULTATION: clear to auscultation bilaterally and crackles Cardio: COMMON NORMALS: no JVD, regular rate, regular rhythm, S1 normal heart sound present and S2 normal heart sound present RATE: regular rate RHYTHM: regular rhythm HEART SOUNDS: S1 normal heart sound present and S2 normal heart sound present GI: COMMON NORMALS: Normal to inspection, nondistended, normoactive bowel sounds present, Soft to palpation and non-tender PALPATION: Yes Soft to palpation Extremity: NARRATIVE EXTREMITY EXAM: 2+ edema Neuro: COMMON NORMALS: patient oriented x3, CN's II-XII intact bilaterally and moves all extremities Psych: COMMON NORMALS: mental status grossly normal Data 08/25/24 04:03 08/25/24 04:03 Micro: Microbiology 08/23/24 13:15 Blood Culture - Preliminary Blood NEGATIVE TO DATE 08/23/24 13:10 Blood Culture - Preliminary Blood NEGATIVE TO DATE A&P Assessment and plan (1) Atrial fibrillation with rapid ventricular response: (2) CHF exacerbation: (3) RUQ abdominal pain: (4) (HFpEF) heart failure with preserved ejection fraction: (5) Hyperthyroidism determined by thyroid function test: Plan Atrial fibrillation with rapid ventricular response: Most likely in setting of significant hyperthyroidism. Continue with metoprolol 50 mg twice daily. Heart rate remains elevated. Stop Cardizem drip. Switch to amiodarone 150 mg IV bolus followed by IV drip. Echocardiogram once heart rate below 100. Continue with Eliquis 5 mg twice daily. Will uptitrate metoprolol depending on the blood pressures. Congestive heart failure: Acute decompensated congestive heart failure. History of diastolic heart failure in the past. Repeat echocardiogram once heart below 100. Patient overall around 1 L negative in last 24 hours. Creatinine trending up today. Hold off on Lasix for now. Depending on urine output in next 1 to 4 hours we will plan for further IV diuresis. Fluid restriction to less than 1500 cc. Monitor electrolytes. Hyperthyroidism: TSH low. Free T3 free T4 found to be high elevated. Thyroid ultrasound shows heterogeneous coarse thyroid with micro nodularity and increase vascularity with concerns for thyroiditis. Symptoms have been ongoing even before amiodarone could be started. Patient states she has been having difficulty in swallowing with neck pain on and off for last 3 to 4 years. Follow-up thyroglobulin antibody and TPO antibodies, TSH immunoglobulin antibody. Patient will need to follow-up with endocrinology as an outpatient. For now continue with methimazole 10 mg oral daily. History of pulmonary embolism/history of left atrial appendage thrombus: Continue with Eliquis as above. Full code Cardiac diet Protonix for PUD prophylaxis Eliquis will be sufficient for DVT prophylaxis. Plan for the day: Heart rate better controlled. Switch to amiodarone 200 mg twice daily. Continue with metoprolol 50 mg twice daily. Continue with anticoagulation with Eliquis. For congestive heart failure continue with fluid restriction. IV Lasix 40 mg twice daily. Monitor BMP. Follow-up echocardiogram results. Continue with methimazole. Concerns for hyperthyroidism. Appreciate thyroid ultrasound. Concerns for thyroiditis. Patient will need to follow-up with endocrinology as an outpatient. Continue with methimazole 10 mg oral daily for now. Repeat thyroid panel in AM. Discharge plan: Plan to discharge the next 24 hours to home with home health if heart rate remains stable on oral diuretics with advised to follow-up with PCP and endocrinology as an outpatient. PDMP PDMP Reviewed: Not Reviewed Attestations 2 Medical Necessity Statement*: Requires further hospitalization for management of A-fib with RVR, congestive heart failure in a patient with hyperthyroidism. Diagnoses Atrial fibrillation with rapid ventricular response I48.91 CHF exacerbation I50.9 RUQ abdominal pain R10.11 (HFpEF) heart failure with preserved ejection fraction I50.30 Hyperthyroidism determined by thyroid function test E05.90; R94.6
--- NOTE | 2024-08-25 13:18 | PC.NURSE ---
patient complained that her bedding had not been changed in 3 days . Nurse took new bedding in there to change her bed and patient refused, saying she is going home tomorrow and doesn't want to lay in her street clothes in the bed. Nurse offered to give the patient a gown and patient refused that as well because she is going home tomorrow .
[2024-08-25] MEDS: pantoprazole 40 mg SDV IVP (14:55)
--- NOTE | 2024-08-25 17:35 | PC.NURSE ---
patient refused to take her amiodarone until she had supper
[2024-08-26] VITALS (12 sets, daily range): BP systolic 111–131; BP diastolic 57–80; PULSE 88–125; RESP 19–25; TEMP 36.7–37.2; O2SAT 92–96
--- NOTE | 2024-08-26 00:32 | PC.NURSE ---
contacted MD about patient HR getting up between 115-125 in afib, MD ordered to start amio gtt back, orders followed out, amio gtt started at 1mg/min
[2024-08-26 05:57] LABS: Basophils # 0.1 10^3/uL (0.0-0.1); Basophils % 1.2 %; Eosinophils # 0.1 10^3/uL (0.0-0.8); Eosinophils % 3.1 %; Hematocrit 38.4 % (36-47); Lymphocytes # 1.1 10^3/uL (0.8-4.8); Lymphocytes % 25.7 %; Mean Corpuscular HGB Conc 30.5 g/dL (30-55); Mean Corpuscular Hemoglobin 27.3 pg (27-33); Mean Corpuscular Volume 89.5 fl (85-98); Mean Platelet Volume 11.1 fL (7.4-10.4); Monocytes # 0.5 10^3/uL (0.2-0.9); Monocytes % 11.2 %; Neutrophils # 2.47 10^3/uL (1.8-7.7); Neutrophils % 58.6 %; Nucleated Red Blood Cells % 0 %; Platelet Count 150 10^3/cmm (157-399); Red Blood Count 4.29 10^6/uL (3.85-5.65); Red Cell Distribution Width 14.3 % (12.1-15.1); White Blood Count 4.21 10^3/uL (3.29-11.43)
[2024-08-26 06:15] LABS: Alanine Aminotransferase 12 U/L (0-33); Albumin Level 3.7 g/dL (3.5-5.2); Alkaline Phosphatase 125 U/L (35-105); Anion Gap 13.8 (5-19); Aspartate Amino Transferase 28 U/L (0-32); Blood Urea Nitrogen 16 mg/dL (8-23); Calcium 8.8 mg/dL (8.5-10.5); Carbon Dioxide 34 mmol/L (22-29); Chloride 99 mmol/L (98-107); Creatinine Clr Calc Pharmacy 38.7723; Free T4 Free Thyroxine 2.14 ng/dL (0.82-1.77); Globulin 2.2 g/dL (1.3-4.6); Glucose 98 mg/dL (65-115); Magnesium 1.8 mg/dL (1.7-2.3); Osmolality Calculated 297 mOsm/kg (285-295); Potassium 3.8 mmol/L (3.5-5.1); Sodium 143 mmol/L (136-145); Thyroid Stimulating Hormone 0.01 uIU/mL (0.27-4.20); Total Bilirubin 0.9 mg/dL (0.15-1.2); Total Protein 5.9 g/dL (6.6-8.7)
[2024-08-26 08:49] LABS: Thyroid Peroxidase Antobodies 1 IU/mL (<9)
--- NOTE | 2024-08-26 09:04 | PC.CHAP ---
Pastoral Care Encounter/Spiritual Assessment Type of Contact [] Declined collection administrator visit [] Patient/Family/Request visit [] Outpatient visit [] Follow-up visit [] Physician referral [] Code/Alert [x] Routine visit [] Staff referral [] Actively dying [] Patient sleeping [] Family support [] [] Out of room [] Palliative care [] [] Receiving care in room [] Pre-surgical visit [] Trauma [] Long length of stay [] ICU visit [] Other: Relational/Emotional Strength [x] Patient feels connected with others/family/visitors/staff [] Distress [] Loneliness/isolation [] Abandonment Spirituality of Patient [x] Person of Katherine [] Attends Sabianist of their Katherine [x] Believes in Prayer [] Reads Bible or Samaritan materials [] There are Spiritual issues to be addressed Traffic Agent Interventions [x] Prayer [x] Active listening [x] Non-anxious presence [x] Spiritual/emotional support [] Crisis/trauma care [] Spiritual counseling [] Bereavement support [] Provided bereavement packet [] Provided Bible/devotional materials [] Provided toy/stuffed animal, coloring book to patient or family member [] Provided Communion [] Anointing/Herman [] Salvation [x] Completed spiritual assessment [] Other: Impact on Illness or Injury [] Angry [] Fearful [] Anxious [] Often cries [] Exhaustion [] Unable to work [] Unable to attend mosque [] Unable to walk/stand [] Unable to read [] Unable to drive [] Unable to eat/drink [] Unable to sleep [] Unable to be with family [] Patient intubated [] Other: Summary Time spent with patient 5 vmin
[2024-08-26] MEDS: FUROsemide 10 mg/mL SDV 4mL 40 MG IVP ×2 (09:11→21:17)
[2024-08-26] MEDS: methIMAzole 5 MG Tablet 10 MG PO (09:11)
[2024-08-26] MEDS: digoxin 250 mcg/ml INJ 2 mL 500 MCG IVP (09:11)
[2024-08-26] MEDS: predniSONE 20 mg Tablet 60 MG PO (09:11)
[2024-08-26] MEDS: apixaban 5 mg Tablet PO ×2 (09:12→17:14)
[2024-08-26] MEDS: amiodarone 200 mg Tablet PO ×2 (09:12→17:15)
[2024-08-26] MEDS: metoprolol tartrate 50 mg Tablet 75 MG PO ×2 (09:12→17:14)
--- NOTE | 2024-08-26 12:35 | PM.PN ---
Subjective Subjective: Overnight patient had tachycardia again. Patient states she was asymptomatic. She started on amiodarone drip at 0.5 again. The morning still seen with heart rate running in 150s. Patient is comfortable. Denies any nausea vomiting, headache. Vitals/I&O/Wt Last Vital Signs Temp 98.0 F 08/26/24 07:58 Pulse 88 08/26/24 12:00 Resp 21 H 08/26/24 12:00 BP 129/71 08/26/24 12:00 Pulse Ox 92 08/26/24 11:36 O2 Del Method Room Air 08/26/24 11:36 08/25/24 08/26/24 08/26/24 22:59 06:59 14:59 Intake Total 360 / 560 197.203 / 757.203 168.343 / 168.343 Output Total 1000 / 1900 1750 / 3650 700 / 700 Balance -640 / -1340 -1552.797 / -2892.797 -531.657 / -531.657 Weight last 48 hrs Weight 88.178 kg Physical Exam Const: COMMON NORMALS: no acute distress and patient oriented x3 Eye: COMMON NORMALS: Equal, round and reactive pupils present PUPIL: Yes Equal, round and reactive pupils present Neck/C-Spine: COMMON NORMALS: no JVD Resp: COMMON NORMALS: normal respiratory effort, No retractions, No use of accessory muscles and clear to auscultation bilaterally AUSCULTATION: clear to auscultation bilaterally and crackles Cardio: COMMON NORMALS: no JVD, regular rate, regular rhythm, S1 normal heart sound present and S2 normal heart sound present RATE: regular rate RHYTHM: regular rhythm HEART SOUNDS: S1 normal heart sound present and S2 normal heart sound present GI: COMMON NORMALS: Normal to inspection, nondistended, normoactive bowel sounds present, Soft to palpation and non-tender PALPATION: Yes Soft to palpation Extremity: NARRATIVE EXTREMITY EXAM: 2+ edema Neuro: COMMON NORMALS: patient oriented x3, CN's II-XII intact bilaterally and moves all extremities Psych: COMMON NORMALS: mental status grossly normal Data 08/26/24 05:15 08/26/24 05:15 A&P Assessment and plan (1) Atrial fibrillation with rapid ventricular response: (2) CHF exacerbation: (3) RUQ abdominal pain: (4) (HFpEF) heart failure with preserved ejection fraction: (5) Hyperthyroidism determined by thyroid function test: (6) Mitral valve stenosis, moderate: (7) Thyroiditis: (8) Valvular heart disease: Plan Atrial fibrillation with rapid ventricular response: Most likely in setting of significant hyperthyroidism. Overnight started on amiodarone drip of 0.5 again. Will stop for now. Continue with oral 200 mg twice daily. Increase metoprolol to 75 mg twice daily. Will start on digoxin load. 500 mcg one-time followed by 125 mcg for 2 doses every 6 hours. Continue with Eliquis 5 mg twice daily. Appreciate echocardiogram showing EF 55 to 60%, left atrial dilatation, moderate mitral stenosis, mild to moderate MR, moderate to severe aortic stenosis, moderate TR. Congestive heart failure: Acute decompensated congestive heart failure. History of diastolic heart failure in the past. Most likely in setting of A-fib with RVR in setting of multi valvular disease. Continue with IV Lasix 40 mg twice daily. Fluid restriction to 1500 cc. Patient overall around 6 L negative. Monitor electrolytes for contraction alkalosis, hypokalemia. Repeat BMP in afternoon. Hyperthyroidism: TSH low. Free T3 free T4 found to be high elevated. Thyroid ultrasound shows heterogeneous coarse thyroid with micro nodularity and increase vascularity with concerns for thyroiditis. Care discussed in detail with outpatient instructional support technician. Advised to start patient on prednisone to reduce inflammation. Continue with current dose of methimazole. Start on prednisone 60 mg oral daily. Follow-up thyroglobulin antibody and TPO antibodies, TSH immunoglobulin antibody. Patient will need to follow-up with endocrinology as an outpatient. History of pulmonary embolism/history of left atrial appendage thrombus: Continue with Eliquis as above. Full code Cardiac diet Protonix for PUD prophylaxis Eliquis will be sufficient for DVT prophylaxis. Discharge plan: Plan to discharge the next 24 hours to home with home health if heart rate remains stable on oral diuretics with advised to follow-up with PCP and endocrinology as an outpatient. PDMP PDMP Reviewed: Not Reviewed Attestations Medical Necessity Statement*: Requires further hospitalization for management of A-fib with RVR, congestive heart failure in a patient with concerns for thyroiditis leading to hyperthyroidism Diagnoses Atrial fibrillation with rapid ventricular response I48.91 CHF exacerbation I50.9 RUQ abdominal pain R10.11 (HFpEF) heart failure with preserved ejection fraction I50.30 Hyperthyroidism determined by thyroid function test E05.90; R94.6 Mitral valve stenosis, moderate I05.0 Thyroiditis E06.9 Valvular heart disease I38
--- NOTE | 2024-08-26 12:50 | ECG_ITS ---
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 Measurements Intervals [place] Rate: 92 P: 0 TX: 0 QRS: 83 QRSD: 78 T: 37 QT: 359 QTc: 445 Interpretive Statements ATRIAL FLUTTER/TACHYCARDIA MODERATE ST DEPRESSION [0.05+ mV ST DEPRESSION] WARNING: DATA QUALITY MAY AFFECT INTERPRETATION Compared to ECG 08/23/2024 18:38:19 No significant changes Electronically Signed On 08-26-2024 21:19:[address] Mena M.D. [email or web address]
--- NOTE | 2024-08-26 13:45 | PC.SOCIAL ---
IMM updated IMM dated and initialed, copy placed in chart and copy given to patient
[2024-08-26] MEDS: pantoprazole 40 mg SDV IVP (15:36)
[2024-08-26] MEDS: digoxin 250 mcg/ml INJ 2 mL 125 MCG IVP ×2 (15:36→21:18)
[2024-08-27] VITALS: BP 108/72; PULSE 90; RESP 13; TEMP 36.6; O2SAT 95
[2024-08-27 04:00] VITALS: BP 112/58; PULSE 92; RESP 17; TEMP 36.3; O2SAT 93
[2024-08-27 05:57] LABS: Basophils % 0.2 %; Hematocrit 42.6 % (36-47); Lymphocytes # 0.7 10^3/uL (0.8-4.8); Lymphocytes % 12.1 %; Mean Corpuscular HGB Conc 30.8 g/dL (30-55); Mean Corpuscular Volume 87.7 fl (85-98); Mean Platelet Volume 11.5 fL (7.4-10.4); Monocytes # 0.4 10^3/uL (0.2-0.9); Monocytes % 7.2 %; Neutrophils # 4.78 10^3/uL (1.8-7.7); Neutrophils % 80.2 %; Nucleated Red Blood Cells % 0 %; Platelet Count 178 10^3/cmm (157-399); Red Blood Count 4.86 10^6/uL (3.85-5.65); Red Cell Distribution Width 13.6 % (12.1-15.1); White Blood Count 5.96 10^3/uL (3.29-11.43)
[2024-08-27 06:21] LABS: Magnesium 1.9 mg/dL (1.7-2.3)
[2024-08-27 06:23] LABS: Alanine Aminotransferase 11 U/L (0-33); Albumin Level 3.5 g/dL (3.5-5.2); Alkaline Phosphatase 123 U/L (35-105); Anion Gap 16.4 (5-19); Aspartate Amino Transferase 23 U/L (0-32); Blood Urea Nitrogen 17 mg/dL (8-23); Calcium 8.7 mg/dL (8.5-10.5); Carbon Dioxide 32 mmol/L (22-29); Chloride 99 mmol/L (98-107); Creatinine Clr Calc Pharmacy 42.0263; Globulin 2.9 g/dL (1.3-4.6); Glucose 121 mg/dL (65-115); Osmolality Calculated 301 mOsm/kg (285-295); Potassium 3.4 mmol/L (3.5-5.1); Sodium 144 mmol/L (136-145); Total Protein 6.4 g/dL (6.6-8.7)
[2024-08-27 08:00] VITALS: BP 133/65; PULSE 94; RESP 20; TEMP 36.4; O2SAT 95
[2024-08-27] MEDS: FUROsemide 10 mg/mL SDV 4mL 40 MG IVP (08:09)
[2024-08-27] MEDS: amiodarone 200 mg Tablet PO (08:09)
[2024-08-27] MEDS: predniSONE 20 mg Tablet 60 MG PO (08:09)
[2024-08-27] MEDS: methIMAzole 5 MG Tablet 10 MG PO (08:10)
[2024-08-27] MEDS: apixaban 5 mg Tablet PO (08:10)
[2024-08-27] MEDS: metoprolol tartrate 50 mg Tablet 75 MG PO (08:10)
--- NOTE | 2024-08-27 09:50 | P.DS_ITS ---
Discharge Providers Date of Admission: 08/23/24 14:46 Date of Discharge: August 27, 2024 Attending Provider at Admission: Sylvain Nash MD Attending Provider at Discharge: Roberto Coleman MD Diagnoses at Discharge Discharge Diagnosis (1) Atrial fibrillation with rapid ventricular response: Status: Acute (2) CHF exacerbation: Status: Acute (3) RUQ abdominal pain: Status: Acute (4) (HFpEF) heart failure with preserved ejection fraction: Status: Acute (5) Hyperthyroidism determined by thyroid function test: Status: Acute (6) Mitral valve stenosis, moderate: Status: Acute (7) Thyroiditis: Status: Acute (8) Valvular heart disease: Status: Acute Reason for Visit Reason for Visit: SOB Brief History: Carolina Lockhart is a 74 year old female with a past medical history of atrial fibrillation, on Eliquis therapy, history of left atrial thrombus, history of pulmonary embolism, moderate mitral stenosis, hypertension, asthma who presents [facility] due to increased lower extremity edema bilaterally, shortness of breath, with exertion, he also complains of right upper quadrant pain, status post cholecystectomy, no fevers, chills, nausea, vomiting, no chest pain, no lightheadedness, no dizziness. Hospital Course Hospital Course Patient was admitted to the hospital further evaluation and management of A-fib with RVR along with concerns for acute on chronic systolic and diastolic heart failure. She was at for started on Cardizem drip. Blood work showed severe hyperthyroidism with TSH of less than 0.01 with an elevated free T4. She was started on methimazole. Her heart rate was difficult to control hence she was started on amiodarone drip. Patient required digoxin loading as well. After amiodarone drip and digoxin loading her heart rate has been better controlled and currently she remains in A-fib/flutter with a rate of 70 to 90 bpm at rest and exertion. Thyroid ultrasound showed concerns for thyroiditis. Further workup for possible Graves' disease was sent out. She was also continued on aggressive IV diuresis to which she responded well. Patient is overall 8 L negative. Care were discussed in detail with outpatient hub inventory specialist who recommended patient to be started on oral steroids along with methimazole. She has been discharged hemodynamically stable condition on oral amiodarone 200 mg twice daily for next 1 week followed by 200 mg daily. Metoprolol dose has been changed to 75 mg twice daily. She has been discharged on oral steroids for at least next 10 days with advised to follow-up with endocrinology office at the earliest for further adjustment of medications. She was counseled in detail about lifestyle modification with congestive heart failure. Patient verbalized understanding. Physical Exam Const: COMMON NORMALS: no acute distress and patient oriented x3 Eye: COMMON NORMALS: Equal, round and reactive pupils present PUPIL: Yes Equal, round and reactive pupils present Neck/C-Spine: COMMON NORMALS: no JVD Resp: COMMON NORMALS: normal respiratory effort, No retractions, No use of accessory muscles and clear to auscultation bilaterally AUSCULTATION: clear to auscultation bilaterally and crackles Cardio: COMMON NORMALS: no JVD, regular rate, regular rhythm, S1 normal heart sound present and S2 normal heart sound present RATE: regular rate RHYTHM: regular rhythm HEART SOUNDS: S1 normal heart sound present and S2 normal heart sound present GI: COMMON NORMALS: Normal to inspection, nondistended, normoactive bowel sounds present, Soft to palpation and non-tender PALPATION: Yes Soft to palpation Extremity: NARRATIVE EXTREMITY EXAM: 2+ edema Neuro: COMMON NORMALS: patient oriented x3, CN's II-XII intact bilaterally and moves all extremities Psych: COMMON NORMALS: mental status grossly normal Discharge Data Studies Completed and Pending Completed Studies During Hospitalization Category Date Time Status XR chest 1V portable [id number] Stat Exams 08/23/24 12:54 Completed CV. echo complete* [id number] Routine Ultrasound 08/24/24 15:49 Completed US abdomen complete* [id number] Stat Ultrasound 08/23/24 15:05 Completed US thyroid [id number] Routine Ultrasound 08/24/24 17:16 Completed Pending at discharge Category Date Time Status Blood Culture Stat Lab 08/23/24 13:10 Results Thyroglobulin AB Stat Lab 08/23/24 19:10 Received Thyroid Stimulating Immunoglob Routine Lab 08/25/24 04:03 Received Radiology Impressions Chest X-Ray 08/23/24 12:54 IMPRESSION: 1. Moderate right pleural effusion with overlying compression. 2. Small left pleural effusion. 3. The cardiomediastinal silhouette appears prominent and is accentuated by AP technique. Abdomen Ultrasound 08/23/24 15:05 IMPRESSION: 1. Increased echogenicity of the liver which may represent hepatic steatosis versus diffuse hepatocellular disease. 2. The left proximal ureter is dilated measuring up to 1.5 cm. No significant left-sided hydronephrosis. Thyroid Ultrasound 08/24/24 17:16 IMPRESSION: Heterogeneous coarse thyroid with micronodularity and increased vascularity suspicious for thyroiditis. Recommend correlation with thyroid function studies and history of Coleman's thyroiditis Echocardiogram: CONCLUSIONS LV systolic function is normal with EF of 55-60% Left atrial dilation Moderate mitral stenosis Mild to moderate mitral regurgitation Moderate to severe aortic stenosis Moderate tricuspid regurgitation Mild pulmonary hypertension Compared to prior echocardiogram from 2021, patient now has moderate mitral stenosis and aortic stenosis has progressed. Pepe Rao MD (Electronically Signed) Final Date: 26 August 2024 Laboratory Results WBC 5.96 10^3/uL (3.29-11.43) 08/27/24 05:26 RBC 4.86 10^6/uL (3.85-5.65) 08/27/24 05:26 Hgb 13.10 g/dL (11.27-16.99) 08/27/24 05:26 Hct 42.6 % (36-47) 08/27/24 05:26 MCV 87.7 fl (85-98) 08/27/24 05:26 MCH 27.0 pg (27-33) 08/27/24 05:26 MCHC 30.8 g/dL (30-55) 08/27/24 05:26 RDW 13.6 % (12.1-15.1) 08/27/24 05:26 Plt Count 178 10^3/cmm (157-399) 08/27/24 05:26 MPV 11.5 fL (7.4-10.4) H 08/27/24 05:26 Neut % (Auto) 80.2 % 08/27/24 05:26 Lymph % (Auto) 12.1 % 08/27/24 05:26 [place] % (Auto) 7.2 % 08/27/24 05:26 Eos % (Auto) 0.0 % 08/27/24 05:26 Baso % (Auto) 0.2 % 08/27/24 05:26 Neut # (Auto) 4.78 10^3/uL (1.8-7.7) 08/27/24 05:26 Lymph # (Auto) 0.7 10^3/uL (0.8-4.8) L 08/27/24 05:26 [place] # (Auto) 0.4 10^3/uL (0.2-0.9) 08/27/24 05: Eos # (Auto) 0.0 10^3/uL (0.0-0.8) 08/27/24 05: Baso # (Auto) 0.0 10^3/uL (0.0-0.1) 08/27/24 05: Nucleated RBC % (auto) 0 % 08/27/24 05: Nucleated RBCs # 0.0 /100WBC 08/27/24 05: PT 20.50 SECONDS (12.1-14.9) H 08/23/24 13:10 INR 1.64 (0.8-1.2) H 08/23/24 13:10 Specimen Type Arterial 08/23/24 14:01 Sample Site Radial, right 08/23/24 14:01 ABG pH 7.46 (7.35-7.45) H 08/23/24 14:01 ABG pCO2 42.7 mmHg (35-45) 08/23/24 14:01 ABG pO2 63.4 mmHg (80.0-100.0) L 08/23/24 14:01 ABG PO2/FiO2 Ratio 301 08/23/24 14:01 ABG HCO3 30.2 mmol/L (22-26) H 08/23/24 14:01 ABG O2 Saturation 93.6 08/23/24 14:01 ABG Base Excess 5.7 mmol/L (-2.0-2.0) H 08/23/24 14:01 Lizandro Test Pos 08/23/24 14:01 A-a O2 Gradient 4.2 mmHg (5-10) L 08/23/24 14:01 Hematocrit 39.9 % (37-47) 08/23/24 14:01 Hgb O2 Saturation 92.9 % (95-100) L 08/23/24 14:01 Carboxyhemoglobin 1.3 %THgb (0.4-20.1) 08/23/24 14:01 Methemoglobin < 0.0 % (0.4-1.5) L 08/23/24 14:01 Total Hemoglobin 13.0 g/dL (12-16) 08/23/24 14:01 Sodium 141.0 mmol/L (131-143) 08/23/24 14:01 Potassium 3.7 mmol/L (3.5-5.0) 08/23/24 14:01 Glucose 102.0 mg/dL (70-115) 08/23/24 14:01 Ionized Calcium 1.2 mmol/L (1.1-1.4) 08/23/24 14:01 O2 Delivery Device Room air 08/23/24 14:01 FiO2 21.0 % 08/23/24 14:01 Sales Team Manager ID glc 08/23/24 14:01 Sodium 144 mmol/L (136-145) 08/27/24 05:26 Potassium 3.4 mmol/L (3.5-5.1) L 08/27/24 05:26 Chloride 99 mmol/L (98-107) 08/27/24 05:26 Carbon Dioxide 32 mmol/L (22-29) H 08/27/24 05:26 Anion Gap 16.4 (5-19) 08/27/24 05:26 BUN 17 mg/dL (8-23) 08/27/24 05:26 Creatinine 1.2 mg/dL (0.5-0.9) H 08/27/24 05:26 GFR Calculation Not Reportable 08/27/24 05:26 Glucose 121 mg/dL (65-115) H 08/27/24 05:26 Estimat Average Glucose 108 08/23/24 13:10 Hemoglobin A1c 5.4 % (4.0-6.0) 08/23/24 13:10 Calculated Osmolality 301 mOsm/kg (285-295) H 08/27/24 05:26 Lactic Acid 1.5 mmol/L (0.5-2.2) 08/23/24 13:10 Calcium 8.7 mg/dL (8.5-10.5) 08/27/24 05:26 Phosphorus 3.5 mg/dL (2.5-4.5) 08/24/24 02:39 Magnesium 1.9 mg/dL (1.7-2.3) 08/27/24 05:26 Iron 32 ug/dL (37-145) L 08/24/24 02:39 TIBC 257 mcg/dl 08/24/24 02:39 % Saturation 12.4 % (20-50) L 08/24/24 02:39 Unsat Iron Binding 225 ug/dL (112-347) 08/24/24 02:39 Total Bilirubin 1.0 mg/dL (0.15-1.2) 08/27/24 05:26 GGT 101 U/L (5-36) H 08/23/24 13:10 AST 23 U/L (0-32) 08/27/24 05:26 ALT 11 U/L (0-33) 08/27/24 05:26 Alkaline Phosphatase 123 U/L (35-105) H 08/27/24 05:26 Troponin T Baseline 13 ng/L (0-10) H 08/23/24 13:10 Troponin T 120 Minute 10.00 ng/L (0-10) 08/23/24 15:03 Delta Troponin T -3.00 ABS# (0-10) L 08/23/24 15:03 Troponin T Hi Sens 6Hr 14.53 ng/L (0-10) H 08/23/24 19:10 Troponin T Hi Sens 6Hr Delta 1.53 ng/L (0-12) 08/23/24 19:10 NT-Pro-B Natriuret Pep 8223 pg/mL (0-450) H 08/24/24 02:39 Total Protein 6.4 g/dL (6.6-8.7) L 08/27/24 05:26 Albumin 3.5 g/dL (3.5-5.2) 08/27/24 05:26 Globulin 2.9 g/dL (1.3-4.6) 08/27/24 05:26 Triglycerides 93 mg/dL (0-150) 08/23/24 13:10 Cholesterol 131 mg/dL (0-200) 08/23/24 13:10 LDL Cholesterol, Calc 62 mg/dL (50-129) 08/23/24 13:10 HDL Cholesterol 50 mg/dL (60-100) L 08/23/24 13:10 LDL/HDL Ratio 1.24 RATIO (0.00-3.22) 08/23/24 13:10 Cholesterol/HDL Ratio 2.62 mg/dL (0.0-4.40) 08/23/24 13:10 Lipase 55 U/L (13-60) 08/23/24 13:10 Vitamin B12 190 pg/mL (232-1245) L 08/24/24 02:39 Folate 9.4 ng/mL (4.8-37.3) 08/25/24 04:03 TSH 0.01 uIU/mL (0.27-4.20) L 08/26/24 05:15 Free T4 2.14 ng/dL (0.82-1.77) H 08/26/24 05:15 Thyroxine (T4) 9.6 mcg/dL (5.1-11.9) 08/24/24 02:39 Free T3 4.5 PG/ML (2.0-4.4) H 08/24/24 02:39 Thyroid Stim Immunoglob Cancelled 08/23/24 19:10 Urine Color Yellow (Yellow) 08/23/24 14:52 Urine Appearance Clear (CLEAR) 08/23/24 14:52 Urine pH 6 (5-7) 08/23/24 14:52 Ur Specific [place] 1.005 (1.005-1.030) 08/23/24 14:52 Urine Protein Neg (Negative) 08/23/24 14:52 Urine Glucose (UA) Norm (Normal) 08/23/24 14:52 Urine Ketones Negative (Negative) 08/23/24 14:52 Urine Blood Neg (Negative) 08/23/24 14:52 Urine Nitrate Negative (Negative) 08/23/24 14:52 Urine Bilirubin Neg (Negative) 08/23/24 14:52 Urine Urobilinogen Neg mg/dL (Negative) 08/23/24 14:52 Ur Leukocyte Esterase Negative (Negative) 08/23/24 14:52 Urine RBC 0-2 /hpf (0-2) 08/23/24 14:52 Urine WBC 0-5 /hpf (0-5) 08/23/24 14:52 Ur Squamous Epith Cells 0-5 /hpf (0-5) 08/23/24 14:52 Amorphous Sediment Not Reportable 08/23/24 14:52 Urine Bacteria None seen /hpf (NONE) 08/23/24 14:52 Hyaline Casts 2.87 /lpf 08/23/24 14:52 Thyroid Peroxidase Ab 1 IU/mL (<9) 08/23/24 19:10 Vitals Last Vital Signs Temp 97.6 F 08/27/24 08:00 Pulse 94 08/27/24 08:00 Resp 20 H 08/27/24 08:00 BP 133/65 08/27/24 08:00 Pulse Ox 95 08/27/24 08:00 O2 Del Method Room Air 08/27/24 08:00 Discharge Plan Discharge Patient Disposition: Home Condition: Stable Prescriptions: New prednisone 20 mg Tablet 60 mg PO DAILY 10 Days Qty: 30 0RF methimazole 5 mg Tablet 10 mg PO DAILY Qty: 60 0RF amiodarone 200 mg tablet 200 mg PO DAILY Qty: 60 0RF Rx Instructions: Bid for 7 days, then daily metoprolol tartrate 50 mg Tablet 75 mg PO BID 30 Days Qty: 90 0RF furosemide [Lasix] 40 mg tablet 40 mg PO DAILY Qty: 60 0RF cyanocobalamin (vitamin B-12) 1,000 mcg capsule 1,000 mcg PO DAILY Qty: 60 0RF Continued albuterol sulfate [Ventolin HFA] 90 mcg/actuation HFA aerosol inhaler 2 puff inhalation Q6H PRN (Reason: shortness of breath or wheezing) Qty: 6.7 0RF Eliquis 5 mg tablet 5 mg PO BID Discontinued metoprolol tartrate 100 mg tablet 150 mg PO BID Discharge Orders: Discharge Order (Routine); Ordered 08/27/24 Ordered By: Roberto Coleman Referrals: Drew Moscoso DO [Physician] - 09/03/24 10:00 am ( ) Radha Munoz FNP [Nurse Practitioner] - 09/07/24 3:00 pm Rupert Moulton MD [Physician] - 09/01/24 10:30 am (Hyperthyroid with thyroiditis) Discharge Diet: Cardiac Discharge Activity: Resume usual activity and Increase activity as tolerated Patient Instructions: Atrial Fibrillation, Furosemide (By mouth), Prednisone (By mouth), Amiodarone (By mouth), Methimazole (By mouth), Heart Failure (ED), Heart Failure (DC), Mitral Stenosis (DC), Hyperthyroidism (DC), Living With Your Heart Failure Monitoring System (DC), Opioid Safety Activity Restrictions/Additional Instructions: Restrict fluid intake to less than 1500 cc, salt intake to less than 2 g daily. Advised to check his weight daily at home. Is advised that weight today would be the dry weight and if body weight increases by around 5 pounds, patient is to take an extra dose of Lasix daily till body weight comes down to weight today. If not able to come down to dry body weight in 1 week, then is to call cardiology office for further recommendations. Patient was counseled in detail to take medications regularly as prescribed. Please check your blood pressure daily at home. Goal blood pressure is between 100-140 systolic. Dose of metoprolol has been changed to 75 mg twice daily. Take amiodarone 200 mg twice daily for 1 week followed by 20 mg daily. Please take prednisone 60 mg oral daily for next 10 days. You should follow-up with your primary care provider within next 1 week. You should follow-up with endocrinology at the earliest in next 1 week. Take methimazole for your thyroid going forward till you see your hub inventory specialist. Discharge Attestations Time Spent in Discharge Care*: greater than 30 min Specific Discharge Activities: educating patient, educating and/or supporting family/caregiver, discussing with pcp/other providers, discussing with pillowcase cutter/social workers/dc planners, documenting/other paperwork and evaluating patient/reviewing data Status at Discharge: Cognitive status at discharge: cognitively intact , Behavioral status at discharge: cooperative , Functional status at discharge: independent ambulation , Overall status at discharge: patient is back to baseline Quality Metrics Clinical Quality Measures [ No reported AMI, CVA or VTE this stay] Coding Level of Care Code 86254 Total time (in minutes) for Discharge: 70 Diagnoses Atrial fibrillation with rapid ventricular response I48.91 CHF exacerbation I50.9 RUQ abdominal pain R10.11 (HFpEF) heart failure with preserved ejection fraction I50.30 Hyperthyroidism determined by thyroid function test E05.90; R94.6 Mitral valve stenosis, moderate I05.0 Thyroiditis E06.9 Valvular heart disease I38
--- NOTE | 2024-08-27 11:08 | PC.NURSE ---
Delayed discharge due to transportation and waiting [id number].
[2024-08-27 12:00] VITALS: BP 117/66; PULSE 89; RESP 20; TEMP 36.5; O2SAT 93
--- NOTE | 2024-08-27 13:38 | PC.NURSE ---
Patient discharged to home. Instruction provided regarding follow up needs and new medications with changes. Patient denies pain or needs. Patient received medication prior to discharge via [id number]. Patient taken by wheelchair to private vehicle. No distress observed.
[2024-08-27 17:04] LABS: Thyroglobulin AB <1 IU/mL (< or = 1)
[2024-08-31 19:05] LABS: Thyroid Stimulating Immunoglob 254 % baseline (<140)
== END 2024-08-27 13:41 | disposition home or self-care (01) | DRG 291 ==
LOC: ER 14:53 → CSU 15:07
PROVIDERS: Emergency Medicine; Admitting Provider Family Medicine; Emergency Provider Emergency Medicine; Visit Provider Student in an Organized Health Care Education/Training Program
DX: I13.0 Hypertensive heart and chronic kidney disease with heart failure and stage 1 through stage 4 chronic kidney disease, or unspecified chronic kidney disease (principal); I50.43 Acute on chronic combined systolic (congestive) and diastolic (congestive) heart failure; Z86.711 Personal history of pulmonary embolism; I27.20 Pulmonary hypertension, unspecified; I35.0 Nonrheumatic aortic (valve) stenosis; I48.91 Unspecified atrial fibrillation; Z79.01 Long term (current) use of anticoagulants; Z79.899 Other long term (current) drug therapy; Z88.1 Allergy status to other antibiotic agents; Z88.5 Allergy status to narcotic agent; Z88.8 Allergy status to other drugs, medicaments and biological substances; Z91.018 Allergy to other foods; N18.9 Chronic kidney disease, unspecified; E06.9 Thyroiditis, unspecified; I05.0 Rheumatic mitral stenosis; E05.00 Thyrotoxicosis with diffuse goiter without thyrotoxic crisis or storm
CPT/HCPCS: 36415; 36600; 71045; 76536; 76700; 80048; 80051; 80053; 80061; 81001; 82330; 82607; 82746; 82805; 82977; 83036; 83540; 83550; 83605; 83690; 83735; 83880; 84100; 84436; 84439; 84443; 84445; 84481; 84484; 85025; 85610; 86376; 86800; 87040; 93005; 93306; 94664; 96365; 96366; 96375; 96376; 99285; A4222; A9270; J0283; J1160; J1940; J2470; J3490; J7512; J9999

== ENCOUNTER → 2024-09-01 09:56 | Outpatient (BNVA) | payer MEDICARE, BC, SELFPAY | PROVIDERS: Visit Provider Internal Medicine | DX: E06.9 Thyroiditis, unspecified (principal); E05.90 Thyrotoxicosis, unspecified without thyrotoxic crisis or storm; R94.6 Abnormal results of thyroid function studies; E05.00 Thyrotoxicosis with diffuse goiter without thyrotoxic crisis or storm; I48.91 Unspecified atrial fibrillation; Z09 Encounter for follow-up examination after completed treatment for conditions other than malignant neoplasm | CPT/HCPCS: 99204 ==

== ENCOUNTER → 2024-09-29 15:18 | Outpatient (BNVA) | payer MEDICARE, BC, SELFPAY | PROVIDERS: PCP Family Medicine; Visit Provider Internal Medicine Cardiovascular Disease | DX: I35.0 Nonrheumatic aortic (valve) stenosis (principal); I50.9 Heart failure, unspecified; I48.91 Unspecified atrial fibrillation; I05.0 Rheumatic mitral stenosis; R58 Hemorrhage, not elsewhere classified | CPT/HCPCS: 36415; 80048; 85025; 85610 ==

== ENCOUNTER 2024-10-07 07:04 | Outpatient (CLI) | payer MEDICARE, BC, SELFPAY ==
--- NOTE | 2024-10-07 09:15 | FL_ITS ---
WS: [id number] Upper GI series with air contrast, 10/07/2024 Clinical Data: Trouble breathing after eating, tenderness in upper right quadrant. Symptoms started 1 year ago. Comparison: Upper GI series, 10/28/2012 Findings: The patient swallowed the air and barium mixture and it flowed normally through the hypopharynx. No fistula, erosion, polyp, mass, obstruction, aspiration or penetration was seen. The barium proceeded into the esophagus. There was normal motility and flow. No hiatal hernia, reflux, mass, polyp, erosion, ulceration, polyp or mass was seen. The barium flowed normally into the esophagus. FL/FL upper GI series [id number] Impression: Normal air-contrast upper GI series.
== END 2024-10-07 07:05 | disposition home or self-care (01) ==
PROVIDERS: PCP Family Medicine; Visit Provider Family Medicine
DX: K29.70 Gastritis, unspecified, without bleeding (principal)
CPT/HCPCS: 74240

== ENCOUNTER 2024-10-07 14:15 | Inpatient (IN) | payer MEDICARE, BC, SELFPAY ==
[2024-10-07] VITALS (16 sets, daily range): BP systolic 105–116; BP diastolic 54–74; PULSE 115–132; RESP 16–20; TEMP 36.4; O2SAT 90–99
--- NOTE | 2024-10-07 14:17 | ECG_ITS ---
[facility] Test Date: 2024-10-07 Pat Name: Carolina Lockhart Department: Room: Gender: Female Radiology Administrator: : [id number] Requested By: Daniel Brasher Order Number: [id number] Reading MD: Measurements Intervals [place] Rate: 134 P: 0 MS: 0 QRS: 100 QRSD: 85 T: 16 QT: 310 QTc: 464 Interpretive Statements ATRIAL FIBRILLATION WITH RAPID VENTRICULAR RESPONSE BORDERLINE RIGHT AXIS DEVIATION [QRS AXIS > 90] LOW QRS VOLTAGE IN EXTREMITY LEADS [QRS DEFLECTION < 0.5 mV IN LIMB LEADS] MINIMAL ST DEPRESSION [0.025+ mV ST DEPRESSION] ABNORMAL RHYTHM ECG No previous ECG available for comparison [email or web address]
--- NOTE | 2024-10-07 14:23 | XR_ITS ---
WS: [id number] Portable AP upright chest, 10/07/2024 Clinical Data: chest pain Comparison: Portable chest, 08/23/2024 Findings: There is an increase in the right pleural effusion which now occupies the inferior two thirds of the right lung. The left lung is clear. The heart size has probably not changed but the right heart border is obscured by the effusion. No pneumothorax is seen. The aortic arch shows mild tortuosity. There is contrast material in the left upper quadrant probably in the colon. XR/XR chest 1V portable [id number] Impression: Increasing right pleural effusion.
--- NOTE | 2024-10-07 14:54 | W.ED.CHESTPA ---
HPI - Chest Pain General: Chief Complaint: Chest Pain Stated Complaint: SOB, Rapid Time Seen by Provider: 10/07/24 14:23 History of Present Illness: Chief complaint is shortness of breath. Patient states she has a history of asthma and shortness of breath. She states that she frequently gets short of breath and she will use her inhaler and be okay. She states she was here today getting a barium swallow done. She states she does not know why they were doing the test. She states she has no itching or rash. She states however she was eating lunch and took her medications although she had not had them all morning because of her procedure and had had nothing to eat since last night so she was eating some food. She states she started feeling some shortness of breath. She states normally she uses her inhaler and she is fine but today it did not go away [place] she decided she should get checked out before she went home. No chest pain or chest discomfort she tells me. Related Data Home Medications ?Medication ?Instructions ?Recorded ?Confirmed apixaban 5 mg tablet (Eliquis) 5 mg PO BID 08/23/24 09/29/24 furosemide 40 mg tablet (Lasix) 40 mg PO DAILY PRN 09/29/24 09/29/24 Previous Rx's ?Medication ?Instructions ?Recorded albuterol sulfate 90 mcg/actuation 2 puff inhalation Q6H PRN 04/28/21 aerosol inhaler (Ventolin HFA) shortness of breath or wheezing #6.7 grams amiodarone 200 mg tablet 200 mg PO DAILY #60 tabs 08/27/24 methimazole 5 mg tablet 10 mg (2 x 5 mg) PO DAILY #60 tabs 08/27/24 Allergies Allergy/AdvReac Type Severity Reaction Status Date / Time clarithromycin Allergy ADR-Abdominal Verified 09/29/24 13:33 Pain codeine Allergy ADR-Abdominal Verified 09/29/24 13:33 Pain cyclobenzaprine Allergy ADR-Cramping Verified 09/29/24 13:33 of the Muscles dexlansoprazole (From Allergy ADR-Back Verified 09/29/24 13:33 Dexilant) Pain doxycycline Allergy ALGY-Rash Verified 09/29/24 13:33 duloxetine (From Cymbalta) Allergy ADR-Abdominal Verified 09/29/24 13:33 Pain green tea Allergy ADR-Abdominal Verified 09/29/24 13:33 Pain omeprazole Allergy ADR-Abdominal Verified 09/29/24 13:33 Pain ranitidine Allergy ADR-Abdominal Verified 09/29/24 13:33 Pain PFSH ED PFSH: Medical History Valvular heart disease Mitral valve stenosis, moderate Pulmonary embolism (HFpEF) heart failure with preserved ejection fraction Mild tricuspid regurgitation Mild pulmonary hypertension Mitral regurgitation Aortic stenosis Acute kidney injury superimposed on CKD Bronchitis Renal calculi Left atrial thrombus Atrial fibrillation with rapid ventricular response New onset a-fib Pulmonary embolism, bilateral BPPV (benign paroxysmal positional vertigo) Surgical History S/P hernia surgery S/P appendectomy S/P cholecystectomy S/P tonsillectomy Social History Smoking and tobacco/nicotine status: former use of tobacco/nicotine Alcohol intake: never Substance/Drug Use: never Physical Exam Narrative: EXAM NARRATIVE: Patient is alert in no acute distress. She has tachycardia with irregular rhythm on auscultation of her heart sounds. Lung sounds are clear. She is breathing comfortably talking in full sentences. Abdomen soft with mild generalized tenderness which she states is chronic. No guarding or rebound. Extremities are warm with significant edema both legs worse on the right which she states is chronic from a injury many years ago. She has some chronic skin changes which she states are unchanged. No calf tenderness. She moves her back freely and has no tenderness. Neck is supple. Conjunctive is normal. Moist mucous membranes. Normal external ENT exam. Moves her arms and legs freely. Course Vital Signs: Vital signs: Vital Signs Temperature 97.6 F 10/07/24 14:17 Pulse Rate 121 H 10/07/24 16:21 Respiratory Rate 18 10/07/24 16:14 Blood Pressure 105/54 10/07/24 17:24 Pulse Oximetry 99 10/07/24 17:24 Oxygen Delivery Me thod Room Air 10/07/24 16:14 MDM - Chest Pain Medical Decision Making Patient presents complaining of shortness of breath. She denies any itching or rash or swelling of her throat to suggest allergic reaction. She states that she was eating her meal and then planning to go home but [place] country and she states that she became anxious about being alone and she started feeling short of breath. She states she has chronic A-fib. She states she is on Eliquis and has not missed any doses. She states the swelling in her legs is chronic and unchanged. She states she has asthma as well as the buildup of fluid from congestive heart failure and she takes a diuretic. She denies any black or bloody stools fever cough. She denies any chest pain or chest discomfort to me. I initially had troponins ordered but canceled these without any chest pain or chest discomfort to suggest cardiac ischemia. Patient does have shortness of breath episode but she states this is a chronic recurrent process. Patient EKG to my interpretation shows A-fib with RVR and nonspecific ST segment changes and appears similar to prior EKGs. Patient states she is compliant with her Eliquis. I ordered 10 mg of Cardizem IV bolus for her tachycardia. CBC and CMP are ordered to check for anemia or electrolyte imbalance and a BMP. I ordered 40 mg Lasix IV and albuterol nebulized treatment. Pneumonia, cardiac dysrhythmia, CHF exacerbation, anxiety, AR, anginal equivalent, pericardial effusion, pleural effusion, extremely broad differential. Patient also has a history of hyperthyroidism and is on methimazole. I will check her TSH and reassess. Patient's chest x-ray shows worsening pleural effusion. proBNP is elevated. Lipase was elevated. Patient states she has chronic abdominal pain for 2-1/2 years. She states no new abdominal pain. She does not drink alcohol she tells me. She had negative Hercules's on my exam. Patient's A-fib is not improved. She states she still feels short of breath. I added on a troponin although she denies any chest pain or chest discomfort to me. I started Cardizem drip and will plan to admit. I consulted with cardiology who agrees with plan and recommended admission to the hospitalist and they can consult if needed for management. I discussed with Dr. Nash who will admit Lab Data 10/07/24 15:25 10/07/24 15:25 Radiology Impressions Chest X-Ray 10/07/24 14:23 Impression: Increasing right pleural effusion. Laboratory Results WBC 6.16 10^3/uL (3.29-11.43) 10/07/24 15:25 RBC 4.17 10^6/uL (3.85-5.65) 10/07/24 15:25 Hgb 11.40 g/dL (11.27-16.99) 10/07/24 15:25 Hct 37.5 % (36-47) 10/07/24 15:25 MCV 89.9 fl (85-98) 10/07/24 15:25 MCH 27.3 pg (27-33) 10/07/24 15:25 MCHC 30.4 g/dL (30-55) 10/07/24 15:25 RDW 15.5 % (12.1-15.1) H 10/07/24 15:25 Plt Count 318 10^3/cmm (157-399) 10/07/24 15: MPV 9.1 fL (7.4-10.4) 10/07/24 15:25 Neut % (Auto) 71.1 % 10/07/24 15:25 Lymph % (Auto) 17.5 % 10/07/24 15:25 [place] % (Auto) 9.6 % 10/07/24 15:25 Eos % (Auto) 0.0 % 10/07/24 15:25 Baso % (Auto) 1.5 % 10/07/24:25 Neut # (Auto) 4.38 10^3/uL (1.8-7.7) 10/07/24 15:25 Lymph # (Auto) 1.1 10^3/uL (0.8-4.8) 10/07/24 15:25 [place] # (Auto) 0.6 10^3/uL (0.2-0.9) 10/07/24 15:25 Eos # (Auto) 0.0 10^3/uL (0.0-0.8) 10/07/24:25 Baso # (Auto) 0.1 10^3/uL (0.0-0.1) 10/07/24:25 Nucleated RBC % (auto) 0 % 10/07/24:25 Nucleated RBCs # 0.0 /100WBC 10/07/24 15:25 ESR 32 mm/hr (0-15) H 10/07/24 15:25 Sodium 138 mmol/L (136-145) 10/07/24 15:25 Potassium 4.2 mmol/L (3.5-5.1) 10/07/24 15:25 Chloride 100 mmol/L (98-107) 10/07/24 15:25 Carbon Dioxide 28 mmol/L (22-29) 10/07/24 15:25 Anion Gap 14.2 (5-19) 10/07/24 15:25 BUN 14 mg/dL (8-23) 10/07/24 15:25 Creatinine 1.2 mg/dL (0.5-0.9) H 10/07/24 15:25 GFR Calculation Not Reportable 10/07/24 15:25 Glucose 81 mg/dL (65-115) 10/07/24 15:25 Calculated Osmolality 286 mOsm/kg (285-295) 10/07/24 15:25 Calcium 8.0 mg/dL (8.5-10.5) L 10/07/24 15:25 Total Bilirubin 0.4 mg/dL (0.15-1.2) 10/07/24 15:25 AST 27 U/L (0-32) 10/07/24 15:25 ALT 14 U/L (0-33) 10/07/24 15:25 Alkaline Phosphatase 128 U/L (35-105) H 10/07/24 15:25 Troponin T Baseline 23 ng/L (0-10) H 10/07/24 15:25 NT-Pro-B Natriuret Pep 4311 pg/mL (0-450) H 10/07/24 15:25 Total Protein 6.0 g/dL (6.6-8.7) L 10/07/24 15:25 Albumin 2.9 g/dL (3.5-5.2) L 10/07/24 15:25 Globulin 3.1 g/dL (1.3-4.6) 10/07/24 15:25 Lipase 442 U/L (13-60) H 10/07/24 15:25 TSH 3.82 uIU/mL (0.27-4.20) 10/07/24 15:25 All radiology interpretation(s) finalized by discharge Discharge Plan Discharge Patient Disposition: Placed in Observation Clinical Impression: Atrial fibrillation with rapid ventricular response, CHF exacerbation Coding Level of Care Code ED Authors Motivational for Prabhakar Hays
[2024-10-07] MEDS: FUROsemide 10 mg/mL SDV 4mL 40 MG IVP (15:27)
[2024-10-07] MEDS: dilTIAZem 5 mg/mL SDV 5 mL 10 MG IVP (15:27)
[2024-10-07 15:37] LABS: Basophils # 0.1 10^3/uL (0.0-0.1); Basophils % 1.5 %; Hematocrit 37.5 % (36-47); Lymphocytes # 1.1 10^3/uL (0.8-4.8); Lymphocytes % 17.5 %; Mean Corpuscular HGB Conc 30.4 g/dL (30-55); Mean Corpuscular Hemoglobin 27.3 pg (27-33); Mean Corpuscular Volume 89.9 fl (85-98); Mean Platelet Volume 9.1 fL (7.4-10.4); Monocytes # 0.6 10^3/uL (0.2-0.9); Monocytes % 9.6 %; Neutrophils # 4.38 10^3/uL (1.8-7.7); Neutrophils % 71.1 %; Nucleated Red Blood Cells % 0 %; Platelet Count 318 10^3/cmm (157-399); Red Blood Count 4.17 10^6/uL (3.85-5.65); Red Cell Distribution Width 15.5 % (12.1-15.1); White Blood Count 6.16 10^3/uL (3.29-11.43)
[2024-10-07 16:06] LABS: Alanine Aminotransferase 14 U/L (0-33); Albumin Level 2.9 g/dL (3.5-5.2); Alkaline Phosphatase 128 U/L (35-105); Anion Gap 14.2 (5-19); Aspartate Amino Transferase 27 U/L (0-32); Blood Urea Nitrogen 14 mg/dL (8-23); Carbon Dioxide 28 mmol/L (22-29); Chloride 100 mmol/L (98-107); Creatinine Clr Calc Pharmacy 40.9297; Globulin 3.1 g/dL (1.3-4.6); Glucose 81 mg/dL (65-115); Osmolality Calculated 286 mOsm/kg (285-295); Potassium 4.2 mmol/L (3.5-5.1); Sodium 138 mmol/L (136-145); Thyroid Stimulating Hormone 3.82 uIU/mL (0.27-4.20); Total Bilirubin 0.4 mg/dL (0.15-1.2)
[2024-10-07] MEDS: albuterol 2.5 MG/0.5 ML NEB INHALATION (16:12)
[2024-10-07 16:24] LABS: Lipase 442 U/L (13-60); NT Pro B Type Natriuretic Pept 4311 pg/mL (0-450)
--- NOTE | 2024-10-07 17:28 | CTR_ITS ---
PROCEDURE INFORMATION: Exam: CT Chest Without Contrast; Diagnostic Exam date and time: 10/07/2024 5:50 PM Age: 74 years old Clinical indication: Abdominal tenderness; Shortness of breath; Prior surgery; Surgery date: 6+ months; Surgery type: Gb, appy; Additional info: SOB TECHNIQUE: Imaging protocol: Diagnostic computed tomography of the chest without contrast. Radiation optimization: All CT scans at this facility use at least one of these dose optimization techniques: automated exposure control; mA and/or kV adjustment per patient size (includes targeted exams where dose is matched to clinical indication); or iterative reconstruction. COMPARISON: CT angio chest w abd pel w con 04/14/2022 1:07 PM RADIATION DOSE METRICS: Total DLP (mGy-cm): 816.38 FINDINGS: Lungs: Moderate to large right-sided pleural effusion associated with significant atelectasis in volume loss in the right lower lobe. Moderate volume loss in the right middle lobe. Left lung unremarkable. Pleural spaces: No pneumothorax. Heart: Extensive annular mitral valve calcifications. Heart size within normal limits. Lymph nodes: Calcified mediastinal nodes suggestive of sequelae of old granulomatous disease. Vasculature: Unremarkable. No aortic aneurysm. Bones/joints: Unremarkable. No acute fracture. Soft tissues: Unremarkable. PROCEDURE INFORMATION: Exam: CT Abdomen And Pelvis Without Contrast Exam date and time: 10/07/2024 5:50 PM Age: 74 years old Clinical indication: Abdominal tenderness; Shortness of breath; Prior surgery; Surgery date: 6+ months; Surgery type: Gb, appy; Additional info: SOB TECHNIQUE: Imaging protocol: Computed tomography of the abdomen and pelvis without contrast. Radiation optimization: All CT scans at this facility use at least one of these dose optimization techniques: automated exposure control; mA and/or kV adjustment per patient size (includes targeted exams where dose is matched to clinical indication); or iterative reconstruction. COMPARISON: CT kidney stone [id number] 11/03/2021 3:02 PM RADIATION DOSE METRICS: Total DLP (mGy-cm): 816.38 FINDINGS: Liver: Normal. No mass. Gallbladder and biliary ducts: Normal. No calcified stones. No ductal dilation. Pancreas: Normal. No ductal dilation. Spleen: Calcified granulomas in the spleen. Adrenal glands: Normal. No mass. Kidneys and ureters: Nonobstructing stone in the lower collecting system of the left kidney measuring 7.5 mm. No hydronephrosis or suspicious renal masses. Mildly atrophic kidneys bilaterally. Stomach and bowel: Evaluation of the colon is somewhat limited by presence of artifact from oral contrast. Normal caliber of the bowel without evidence of obstruction. No focal bowel wall thickening or inflammation. Appendix: No evidence of appendicitis. Intraperitoneal space: Unremarkable. No free air. No significant fluid collection. Vasculature: Unremarkable. No abdominal aortic aneurysm. Lymph nodes: Unremarkable. No enlarged lymph nodes. Urinary bladder: Unremarkable as visualized. Reproductive: Unremarkable as visualized. Bones/joints: Unremarkable. No acute fracture. Soft tissues: Unremarkable. CT/[place] [id number] IMPRESSION: 1. Moderate to large right-sided pleural effusion associated with significant atelectasis in volume loss in the right lower lobe. Moderate volume loss in the right middle lobe. 2. No other acute findings in the chest. 3. Extensive annular mitral valve calcifications. IMPRESSION: 1. No acute findings in the abdomen or pelvis. 2. Nonobstructing stone in the lower collecting system of the left kidney measuring 7.5 mm. 3. Evaluation of the colon is somewhat limited by presence of artifact from oral contrast, possibly barium.
--- NOTE | 2024-10-07 17:35 | PM.HP ---
Providers/Chief Complaint Primary Care Provider: Daivd John MD Chief Complaint: SOB, Rapid History of Present Illness Carolina Lockhart is a 74 year old female with a past medical history of Graves' disease, atrial fibrillation on Eliquis, history of fluid overload who presents [facility] due to shortness of breath, lower extreme edema, patient reports of increased shortness of breath recently, increased lower extreme edema, she had a barium swallow today, she denies any choking or coughing after her barium swallow, results were within normal limits but reported increased shortness of breath thereafter, also reported anterior chest discomfort, no nausea, no vomiting, no hemoptysis, currently in A-fib with RVR heart rates in the 130s, Cardizem drip to be started Review of Systems Card: Reports: chest pain Resp: Reports: dyspnea Medications/Allergies Home Medications ?Medication ?Instructions ?Recorded ?Confirmed ?Last Taken ?Type albuterol sulfate 90 mcg/actuation 2 puff inhalation Q6H PRN 04/28/21 09/29/24 Unknown Rx aerosol inhaler (Ventolin HFA) shortness of breath or wheezing #6.7 grams apixaban 5 mg tablet (Eliquis) 5 mg PO BID 08/23/24 09/29/24 Unknown History amiodarone 200 mg tablet 200 mg PO DAILY #60 tabs 08/27/24 09/29/24 Unknown Rx methimazole 5 mg tablet 10 mg (2 x 5 mg) PO DAILY #60 tabs 08/27/24 09/29/24 Unknown Rx furosemide 40 mg tablet (Lasix) 40 mg PO DAILY PRN 09/29/24 09/29/24 Unknown History Allergies Allergy/AdvReac Type Severity Reaction Status Date / Time clarithromycin Allergy ADR-Abdominal Verified 09/29/24 13:33 Pain codeine Allergy ADR-Abdominal Verified 09/29/24 13:33 Pain cyclobenzaprine Allergy ADR-Cramping Verified 09/29/24 13:33 of the Muscles dexlansoprazole (From Allergy ADR-Back Verified 09/29/24 13:33 Dexilant) Pain doxycycline Allergy ALGY-Rash Verified 09/29/24 13:33 duloxetine (From Cymbalta) Allergy ADR-Abdominal Verified 09/29/24 13:33 Pain green tea Allergy ADR-Abdominal Verified 09/29/24 13:33 Pain omeprazole Allergy ADR-Abdominal Verified 09/29/24 13:33 Pain ranitidine Allergy ADR-Abdominal Verified 09/29/24 13:33 Pain PFSH Acute PFSH: Medical History Valvular heart disease Mitral valve stenosis, moderate Pulmonary embolism (HFpEF) heart failure with preserved ejection fraction Mild tricuspid regurgitation Mild pulmonary hypertension Mitral regurgitation Aortic stenosis Acute kidney injury superimposed on CKD Bronchitis Renal calculi Left atrial thrombus Atrial fibrillation with rapid ventricular response New onset a-fib Pulmonary embolism, bilateral BPPV (benign paroxysmal positional vertigo) Surgical History S/P hernia surgery S/P appendectomy S/P cholecystectomy S/P tonsillectomy Social History Smoking and tobacco/nicotine status: former use of tobacco/nicotine Alcohol intake: never Substance/Drug Use: never Vitals/I&O/Wt Last Vital Signs Temp 97.6 F 10/07/24 14:17 Pulse 121 H 10/07/24 16:21 Resp 18 10/07/24 16:14 BP 105/54 10/07/24 17:24 Pulse Ox 99 10/07/24 17:24 O2 Del Method Room Air 10/07/24 16:14 Weight last 48 hrs Weight 83.915 kg Physical Exam Const: COMMON NORMALS: no acute distress and patient oriented x3 HENMT: COMMON NORMALS: normocephalic HEAD & SCALP: normocephalic Eye: COMMON NORMALS: Equal, round and reactive pupils present Neck/C-Spine: COMMON NORMALS: no JVD Lymph: LYMPHATIC: no lymphadenopathy noted Resp: COMMON NORMALS: normal respiratory effort, No retractions, No use of accessory muscles and clear to auscultation bilaterally AUSCULTATION: crackles and wheezes Cardio: COMMON NORMALS: no JVD, S1 normal heart sound present and S2 normal heart sound present RATE: tachycardic RHYTHM: abnormal rhythm irregularly irregular HEART SOUNDS: S1 normal heart sound present and S2 normal heart sound present GI: COMMON NORMALS: Normal to inspection, nondistended, normoactive bowel sounds present, Soft to palpation and non-tender Extremity: COMMON NORMALS: no calf tenderness NARRATIVE EXTREMITY EXAM: 2+ pitting edema Neuro: COMMON NORMALS: patient oriented x3, CN's II-XII intact bilaterally and moves all extremities Psych: COMMON NORMALS: mental status grossly normal Data 10/07/24 15:25 10/07/24 15:25 A&P Assessment and plan (1) (HFpEF) heart failure with preserved ejection fraction: (2) CHF exacerbation: (3) Mitral valve stenosis, moderate: (4) Atrial fibrillation with rapid ventricular response: Plan A-fib with RVR - Continue Cardizem drip - Continue p.o. amiodarone - Hold Eliquis - 1 dose therapeutic Lovenox Right pleural effusion - Eliquis on hold - Hold anticoagulation after 1 dose therapeutic Lovenox - Will order thoracentesis Diastolic CHF exacerbation -Lasix 40 IV twice daily - Fluid restrictions of 1000 cc Had a barium swallow today, with complaints of shortness of breath, CT chest Aortic valve stenosis Mitral valve stenosis History of pulmonary embolism, on Eliquis History of left atrial thrombus History of Graves' disease, continue methimazole Elevated lipase, does have some epigastric discomfort, CT abdomen and pelvis Chest pain, serial EKGs, serial troponins, telemetry monitoring, aspirin, statin PDMP PDMP Reviewed: Not Reviewed Attestations Medical Necessity Statement*: Patient requires hospitalization for A-fib with RVR, right pleural effusion, CHF exacerbation, chest pain, inpatient, greater than 2 midnights Diagnoses (HFpEF) heart failure with preserved ejection fraction I50.30 CHF exacerbation I50.9 Mitral valve stenosis, moderate I05.0 Atrial fibrillation with rapid ventricular response I48.91
[2024-10-07 17:56] LABS: Erythrocyte Sedimentation Rate 32 mm/hr (0-15); Troponin(5th) Baseline 23 ng/L (0-10)
[2024-10-07] MEDS: aspirin 81 mg Chew Tablet 324 MG PO (18:21)
[2024-10-07 18:23] LABS: Troponin 5 2HR 22.01 ng/L (0-10)
[2024-10-07 18:27] LABS: Troponin 5 2HR Delta -0.99 ABS# (0-10)
[2024-10-07 20:06] LABS: Free T4 Free Thyroxine 1.07 ng/dL (0.82-1.77); Procalcitonin 0.07 ng/mL (0-0.5); T3 Free 1.9 PG/ML (2.0-4.4)
[2024-10-07 20:19] LABS: C Reactive Protein 20.2 mg/L (0.0-4.9)
[2024-10-07 21:52] LABS: Troponin 5 6HR 24.16 ng/L (0-10); Troponin 5 6HR Delta 1.16 ng/L (0-12)
[2024-10-07] MEDS: enoxaparin 100 mg/mL Syringe 80 MG SUBCUT (22:16)
[2024-10-07] MEDS: atorvastatin 40 mg Tablet PO (22:17)
[2024-10-07] MEDS: pantoprazole 40 mg SDV IVP (22:17)
[2024-10-07 22:37] LABS: Bacteria Urine None Seen /hpf; Hyaline Casts Urine 1.65 /lpf; RBC Urine 0-2 /hpf (0-2); Squamous Epithelial Cell Urine 0-5 /hpf (0-5); WBC Urine 0-5 /hpf (0-5)
[2024-10-07 22:44] LABS: Add Urine Microscopic? YES; Bilirubin Urine Negative (Negative); Blood Urine Negative (Negative); Glucose Urine UA Negative (Normal); Ketones Urine Negative (Negative); Leukocyte Esterase Urine Negative (Negative); Nitrate Urine Negative (Negative); Protein Urine Negative (Negative); Specific Gravity, Urine 1.006 (1.005-1.030); Urine Appearance Clear (CLEAR); Urine Color Yellow (Yellow); Urobilinogen Urine 0.2 mg/dL (Negative)
[2024-10-08] VITALS (26 sets, daily range): BP systolic 86–111; BP diastolic 42–78; PULSE 84–138; RESP 16–29; TEMP 36.4–37.8; O2SAT 91–96
[2024-10-08] MEDS: dilTIAZem 100 MG in sodium chloride 0.9% (add-van) 100 ML IV (00:20)
--- NOTE | 2024-10-08 01:02 | PC.NURSE ---
Assumed care of patient at 2325 from Romy Prado lpn. Dilt drip ordered at 1700 had not been started. STORE SALES MANAGER reports that she did not know that the med was to be started. Pt assessed and drip started d/t HR between 119-135.
[2024-10-08 06:23] LABS: Basophils # 0.1 10^3/uL (0.0-0.1); Basophils % 2.2 %; Hematocrit 38.8 % (36-47); Lymphocytes # 1.1 10^3/uL (0.8-4.8); Lymphocytes % 21.6 %; Mean Corpuscular HGB Conc 30.7 g/dL (30-55); Mean Corpuscular Hemoglobin 27.1 pg (27-33); Mean Corpuscular Volume 88.4 fl (85-98); Mean Platelet Volume 9.2 fL (7.4-10.4); Monocytes # 0.5 10^3/uL (0.2-0.9); Monocytes % 9.7 %; Neutrophils # 3.27 10^3/uL (1.8-7.7); Neutrophils % 66.1 %; Nucleated Red Blood Cells % 0 %; Platelet Count 303 10^3/cmm (157-399); Red Blood Count 4.39 10^6/uL (3.85-5.65); Red Cell Distribution Width 15.5 % (12.1-15.1); White Blood Count 4.95 10^3/uL (3.29-11.43)
[2024-10-08] MEDS: FUROsemide 10 mg/mL SDV 4mL 40 MG IVP ×2 (06:25→16:35)
[2024-10-08 06:43] LABS: Anion Gap 11.9 (5-19); Blood Urea Nitrogen 12 mg/dL (8-23); Calcium 8.1 mg/dL (8.5-10.5); Carbon Dioxide 29 mmol/L (22-29); Chloride 101 mmol/L (98-107); Creatinine Clr Calc Pharmacy 40.9297; Glucose 82 mg/dL (65-115); Osmolality Calculated 285 mOsm/kg (285-295); Potassium 3.9 mmol/L (3.5-5.1); Sodium 138 mmol/L (136-145)
[2024-10-08 06:52] LABS: NT Pro B Type Natriuretic Pept 3135 pg/mL (0-450)
[2024-10-08 08:45] LABS: Lipase 277 U/L (13-60)
[2024-10-08] MEDS: amiodarone 200 mg Tablet PO (08:52)
[2024-10-08] MEDS: methIMAzole 5 MG Tablet 10 MG PO (08:52)
--- NOTE | 2024-10-08 10:57 | PC.NURSE ---
Report given to CSU Tessie
--- NOTE | 2024-10-08 11:26 | XR_ITS ---
WS: [id number] CHEST XRAY TECHNIQUE: Portable chest. CLINICAL INFORMATION: post thoracentesis COMPARISON: 10/07/2024 FINDINGS: Heart: Mild cardiomegaly. Lungs: Improved RIGHT pleural effusion post thoracentesis. Mild residual RIGHT pleural effusion with compressive atelectasis RIGHT lower lobe. Improved aeration RIGHT midlung. LEFT lung is well aerated. Bones: Osteopenia. XR/XR chest 1V portable [id number] IMPRESSION: Improved RIGHT pleural effusion postthoracentesis. No pneumothorax.
--- NOTE | 2024-10-08 11:58 | PC.NURSE ---
DURING THORACENTESIS, PATIENT HAD A DOG TICK ON HER LEFT SHOULDER. REMOVED TICK OFF SHOULDER.
[2024-10-08] MEDS: dilTIAZem 60 mg Tablet PO ×2 (12:17→16:35)
--- NOTE | 2024-10-08 12:19 | XRR_ITS ---
PROCEDURE INFORMATION: Exam: XR Chest Exam date and time: 10/08/2024 12:31 PM Age: 74 years old Clinical indication: Shortness of breath; Prior surgery; Surgery date: Post-operative (0-2 days); Surgery type: Post thora; Additional info: Pain with inspiration S/P thoracentesis TECHNIQUE: Imaging protocol: Radiologic exam of the chest. Views: 1 view. COMPARISON: CR XR chest 1V portable [id number] 10/08/2024 11:34 AM FINDINGS: Lungs: Right basilar atelectasis/consolidation. Pleural spaces: Moderate to large right-sided pleural effusion associated with right basilar atelectasis/consolidation. Probable small right apical pneumothorax measuring 7 mm. Heart/Mediastinum: Unremarkable. No cardiomegaly. Bones/joints: Unremarkable. Other findings: No suspicious masses or nodules. XR/XR chest 1V portable [id number] IMPRESSION: 1. Probable small right apical pneumothorax measuring 7 mm. 2. Moderate to large right-sided pleural effusion associated with right basilar atelectasis/consolidation.
--- NOTE | 2024-10-08 15:31 | P.PN_ITS ---
Subjective 2 Subjective: Patient was seen this morning, she is alert and oriented x 3, following all commands, she denies any fevers, no chills, no cough, no lightheadedness, no dizziness, does report generalized weakness Vitals/I&O/Wt Last Vital Signs Temp 97.6 F 10/07/24 14:17 Pulse 84 10/08/24 14:32 Resp 18 10/08/24 14:32 BP 110/74 10/08/24 12:12 Pulse Ox 94 10/08/24 14:32 O2 Del Method Room Air 10/08/24 14:32 O2 Flow Rate 2 10/08/24 06:29 10/08/24 10/08/24 10/08/24 06:59 14:59 22:59 Intake Total 4 / 4 88.792 / 88.792 Output Total 300 / 300 300 / 300 Balance -296 / -296 -211.208 / -211.208 Weight last 48 hrs Weight 83.915 kg Physical Exam 2 Const: COMMON NORMALS: no acute distress and patient oriented x3 Resp: COMMON NORMALS: normal respiratory effort, No retractions and No use of accessory muscles Cardio: COMMON NORMALS: S1 normal heart sound present and S2 normal heart sound present RATE: tachycardic RHYTHM: abnormal rhythm irregularly irregular HEART SOUNDS: S1 normal heart sound present and S2 normal heart sound present GI: COMMON NORMALS: Normal to inspection, nondistended, normoactive bowel sounds present Extremity: COMMON NORMALS: no pedal edema Neuro: COMMON NORMALS: patient oriented x3 Psych: COMMON NORMALS: mental status grossly normal Data 10/08/24 06:14 10/08/24 06:14 A&P Assessment and plan (1) (HFpEF) heart failure with preserved ejection fraction: (2) CHF exacerbation: (3) Mitral valve stenosis, moderate: (4) Atrial fibrillation with rapid ventricular response: Plan A-fib with RVR - Continue Cardizem drip, wean off to p.o. Cardizem - Continue p.o. amiodarone - Hold Eliquis - Currently on therapeutic Lovenox Right pleural effusion -CT shows moderate to large right-sided pleural effusion associate with significant attic lactic cyst and volume loss, right lower lobe - Eliquis on hold - Hold anticoagulation after 1 dose therapeutic Lovenox - Will order thoracentesis - Thoracentesis studies ordered Diastolic CHF exacerbation -Lasix 40 IV twice daily - Fluid restrictions of 1000 cc Had a barium swallow today, with complaints of shortness of breath, CT chest Aortic valve stenosis Mitral valve stenosis History of pulmonary embolism, on Eliquis History of left atrial thrombus History of Graves' disease, continue methimazole Elevated lipase, does have some epigastric discomfort, CT abdomen and pelvis no radiographic evidence of pancreatitis CT scan shows nonobstructing stone in the lower collecting system of the left kidney measuring 7.5 mm - No KYLE - Will continue to monitor renal function closely - UA within normal limits - Strain urine Chest pain, serial EKGs, serial troponins, telemetry monitoring, aspirin, statin Plan for today, right thoracentesis, follow studies, Lasix for diuresis, heart rate control PDMP PDMP Reviewed: Not Reviewed Attestations 2 Medical Necessity Statement*: Patient requires hospitalization for A-fib with RVR, CHF, right pleural effusion Diagnoses (HFpEF) heart failure with preserved ejection fraction I50.30 CHF exacerbation I50.9 Mitral valve stenosis, moderate I05.0 Atrial fibrillation with rapid ventricular response I48.91
[2024-10-08 16:33] LABS: Body Fluid Polynuclear #Cells 0.022; Body Fluid WBC 139 /uL; Monocytes # Body Fluid 0.117
[2024-10-08] MEDS: tamsulosin 0.4 mg Capsule PO (16:35)
[2024-10-08 16:36] LABS: Apprearance, Body Fluid CLOUDY; Cyto Order Verification No Order; PATH Referral YES
[2024-10-08] MEDS: enoxaparin 80 mg/0.8 mL Syringe SUBCUT (16:36)
[2024-10-08 16:48] LABS: Hematocrit Body Fluid 0.1 %
[2024-10-08] MEDS: TRAMadol 50 mg Tablet PO ×2 (16:52→23:14)
--- NOTE | 2024-10-08 17:33 | US_ITS ---
WS: [id number] ULTRASOUND-GUIDED THORACENTESIS CLINICAL INFORMATION: right pleural effusion COMPARISON: None. PROCEDURE: Informed consent: The risks, benefits, and alternatives of the procedure were discussed with the patient. Verbal and written consent was obtained. Timeout: A timeout was performed to confirm the correct patient, procedure, and site. Site: RIGHT Preparation: A suitable skin site was identified. The patient was prepped and draped in usual sterile fashion. Lidocaine 1% was used for local anesthesia. Catheter: 4 [place] One-Step catheter. Fluid Volume: 1000 ml Color: Bloody Complications: None. / thoracentesis [id number] IMPRESSION: 1. Uncomplicated ultrasound-guided RIGHT thoracentesis. 2. Removal of 1000 cc bloody fluid 3. No pneumothorax.
[2024-10-08 18:00] LABS: Albumin Body Fluid 1.8 g/dL; Creatinine Body Fluid 1.26 (0.5-0.9); LDH Pleural Fluid 148 U/L; Triglycerides, Pleural Fluid 35 mg/dL
[2024-10-08] MEDS: acetaminophen 325 mg Tablet 650 MG PO (20:56)
[2024-10-08] MEDS: atorvastatin 40 mg Tablet PO (20:56)
[2024-10-08] MEDS: pantoprazole 40 mg SDV IVP (20:57)
--- NOTE | 2024-10-08 21:00 | XRR_ITS ---
PROCEDURE INFORMATION: Exam: XR Chest Exam date and time: 10/08/2024 9:28 PM Age: 74 years old Clinical indication: Shortness of breath; Prior surgery; Surgery date: Post-operative (0-2 days); Surgery type: Drainage; Additional info: Small apical ptx TECHNIQUE: Imaging protocol: Radiologic exam of the chest. Views: 1 view. COMPARISON: CR XR chest 1V portable [id number] 10/08/2024 12:31 PM FINDINGS: Lungs: Moderate to large right pleural effusion with right lower lobe pneumonia. Pleural spaces: See Lungs finding. Heart/Mediastinum: Unremarkable. No cardiomegaly. Bones/joints: Unremarkable. XR/XR chest 1V portable [id number] IMPRESSION: Moderate to large right pleural effusion with right lower lobe pneumonia.
[2024-10-08] MEDS: sodium chloride 0.9% 500 ML 999 ML IV (23:31)
[2024-10-09] VITALS (11 sets, daily range): BP systolic 82–111; BP diastolic 48–74; PULSE 92–110; RESP 15–24; TEMP 36.6–36.9; O2SAT 91–97
[2024-10-09 03:16] LABS: Basophils # 0.1 10^3/uL (0.0-0.1); Basophils % 1.6 %; Hematocrit 32.8 % (36-47); Lymphocytes # 0.7 10^3/uL (0.8-4.8); Lymphocytes % 11.8 %; Mean Corpuscular HGB Conc 30.8 g/dL (30-55); Mean Corpuscular Hemoglobin 26.9 pg (27-33); Mean Corpuscular Volume 87.5 fl (85-98); Mean Platelet Volume 9.5 fL (7.4-10.4); Monocytes # 0.6 10^3/uL (0.2-0.9); Monocytes % 10.4 %; Neutrophils # 4.22 10^3/uL (1.8-7.7); Neutrophils % 75.8 %; Nucleated Red Blood Cells % 0 %; Platelet Count 284 10^3/cmm (157-399); Red Blood Count 3.75 10^6/uL (3.85-5.65); Red Cell Distribution Width 15.7 % (12.1-15.1); White Blood Count 5.57 10^3/uL (3.29-11.43)
[2024-10-09 03:38] LABS: Anion Gap 10.9 (5-19); Blood Urea Nitrogen 14 mg/dL (8-23); Calcium 7.6 mg/dL (8.5-10.5); Carbon Dioxide 30 mmol/L (22-29); Chloride 99 mmol/L (98-107); Creatinine Clr Calc Pharmacy 32.7438; Glucose 122 mg/dL (65-115); Osmolality Calculated 284 mOsm/kg (285-295); Potassium 3.9 mmol/L (3.5-5.1); Sodium 136 mmol/L (136-145)
--- NOTE | 2024-10-09 04:02 | PC.NURSE ---
2242- Patient had fever of 100.2 and was given tylenol along with other cooling measures. CXR report mentioned possible pneumonia. Notified Dr. Rasmussen regarding CXR report along with patients temperature. WBC are wnl at 4.95. Per Dr. Rasmussen fluid does not look infected no abx at this time. Continue to monitor. 2320- Patient has 60 mg of diltiazem due current BP 93/43 with HR ranging from 100-120. Patient has been having low BP ranging from SBP 86-110's. Clarified with Dr. Rasmussen if he still wanted diltiazem to be given. Received orders to hold diltiazem and give 500 cc bolus of fluid. MD aware of CHF status.
[2024-10-09] MEDS: digoxin 250 mcg/ml INJ 2 mL 500 MCG IVP (04:49)
[2024-10-09] MEDS: enoxaparin 80 mg/0.8 mL Syringe SUBCUT (04:51)
--- NOTE | 2024-10-09 04:59 | PC.NURSE ---
Notified Dr. Rasmussen that patient has low BP of 82/56 map of 64. Patient denies any symptoms at this time. HR ranging between 100-110. MD to place orders. Also clarifed that if BP continues to be low if lasix in am can be held. Per Dr. Rasmussen okay to hold lasix for low BP.
[2024-10-09] MEDS: calcium gluconate 0.9% NaCL 1 GM/50 ML PREMIX IV ×2 (07:00→07:56)
--- NOTE | 2024-10-09 07:00 | XR_ITS ---
WS: [id number] Portable AP upright chest, 10/09/2024 Clinical Data: sob Comparison: Portable chest, 10/08/2024 Findings: The opacity in the right lower lobe which is probably effusion, pneumonia and atelectasis remains the same. The left lung is clear. The heart size remains the same. No nodules or masses are noted. The aortic arch shows tortuosity as does the descending thoracic aorta. There is osteoarthritis of the right shoulder joint. Monitor leads are on the chest wall. XR/XR chest 1V portable [id number] Impression: 1. No change in right lower lobe opacity. 2. Atherosclerosis.
[2024-10-09] MEDS: tamsulosin 0.4 mg Capsule PO (08:00)
[2024-10-09] MEDS: methIMAzole 5 MG Tablet 10 MG PO (08:00)
[2024-10-09] MEDS: amiodarone 200 mg Tablet PO (08:00)
[2024-10-09] MEDS: AZITHROMYCIN ADD-Vantage 500 MG in 0.9% NaCl ADD-Vantage 250 ML 250 MG IV (08:01)
[2024-10-09] MEDS: cefTRIAXone 1,000 mg SDV 1000 MG IVP (08:01)
[2024-10-09 09:13] LABS: C Reactive Protein 21.6 mg/L (0.0-4.9)
[2024-10-09 09:20] LABS: Procalcitonin 0.09 ng/mL (0-0.5)
[2024-10-09] MEDS: dilTIAZem 60 mg Tablet PO ×2 (11:03→17:33)
[2024-10-09 12:25] LABS: Lactate Dehydrogenase 194 U/L (135-214)
--- NOTE | 2024-10-09 13:26 | USR_ITS ---
PROCEDURE INFORMATION: Exam: US Soft Tissue Head and Neck, Soft Tissue Exam date and time: 10/09/2024 5:03 PM Age: 74 years old Clinical indication: Enlarged lymph nodes; Additional info: Lymphadenopathy TECHNIQUE: Imaging protocol: Real-time ultrasound scan of the head and neck with image documentation. Exam focused on the soft tissue in the region of clinical concern. COMPARISON: US thyroid [id number] 08/24/2024 8:44 AM FINDINGS: Lymph nodes: No lymphadenopathy. Soft tissues: Unremarkable. No fluid collections. US/US soft tissue head neck [id number] IMPRESSION: No lymphadenopathy or other focal measurable abnormality identified on sonography.
[2024-10-09 14:02] LABS: NT Pro B Type Natriuretic Pept 2384 pg/mL (0-450)
--- NOTE | 2024-10-09 15:12 | P.PN_ITS ---
Subjective 2 Subjective: - Patient was seen this morning - Discussed with patient yesterday she h ad a right thoracentesis with about a liter of fluid removed - Awaiting on some of the test results - She did have a small apical pneumothor ax on one of the chest x-rays but repeat chest x-ray do not show any significant radiographic evidence - But the chest x-ray does show quite ra pid recurrence of her right pleural effusion - Chest x-ray yesterday also showed evid ence of right lower lobe pneumonia, she has been started on antibiotics - Concerns for right parapneumonic effus ion but could be transudative pleural effusion - Discussed with patient continuing anti biotic therapy, she appears quite euvolemic will hold off on further diuresis, heart rates are under control, off Cardizem drip, discussed ambulation - She does report that she continues to have right lateral pain in the right lower lateral rib, she has a pulling sensation whenever she takes a deep breath in - Discussed this certainly could be from her pleural effusion - Studies followed up right pleural effu makayla, it appears as if this is a exudative pleural effusion, given right lower lobe pneumonia concerns concerns for complicated parapneumonic effusion - Over a liter removed, Gram stain shows many white blood cells, no organisms, cultures -18 to 24 hours, she remains afebrile -pH is 7, 139 white blood cells, glucose 87 - However repeat chest x-ray shows rapid recurrence - Discussed with patient that her fluid is a exudative pleural effusion, concern for complicated parapneumonic effusion - Although her cultures so far are negat anshu, Gram stain is reasonable - The concern is for this rapid recurren ce of the pleural effusion, or her complaints of right lower rib/lateral chest pain, pulling sensation, and over a liter removed from the right lung - Discussed the need for tertiary level evaluation, complicated parapneumonic fusion versus empyema, unfortunately we do not have subspecialty support here at [facility], patient needs pulmonary/CT surgery evaluation for possible chest tube placement, or potentially pleurodesis and throacoscopy - After discussion discussing risk and b enefits of all options, she voiced understanding, all questions answered, agreed to proceed - Spoke to [facility] transfer line - Spoke to [facility], spoke to jens yang nurse practitioner, discussed transfer for the need of recurrent right pleural effusion concerns for parapneumonic effusion versus empyema, need for chest tube placement or potentially pleurodesis or Thorascope, need for pulmonary/CT surgery evaluation - Patient has been accepted, awaiting a bed Vitals/I&O/Wt Last Vital Signs Temp 98.0 F 10/09/24 12:00 Pulse 102 H 10/09/24 12:00 Resp 19 H 10/09/24 12:00 BP 105/48 10/09/24 12:00 Pulse Ox 91 10/09/24 12:00 O2 Del Method Room Air 10/09/24 12:00 O2 Flow Rate 2 10/08/24 06:29 10/09/24 10/09/24 10/09/24 06:59 14:59 22:59 Intake Total 822 / 1550.792 570.000 / 570.000 Balance 822 / 650.792 570.000 / 570.000 Physical Exam 2 Const: COMMON NORMALS: no acute distress and patient oriented x3 Resp: COMMON NORMALS: normal respiratory effort, No retractions and No use of accessory muscles OTHER: Decreased aeration right lower lobe lung [place] Cardio: COMMON NORMALS: regular rate, regular rhythm, S1 normal heart sound present and S2 normal heart sound present RATE: regular rate RHYTHM: r egular rhythm HEART SOUNDS: S1 normal heart sound present and S2 normal heart sound present GI: COMMON NORMALS: Normal to inspection, nondistended, normoactive bowel sounds present and non-tender Extremity: COMMON NORMALS: no pedal edema Neuro: COMMON NORMALS: patient oriented x3 Psych: COMMON NORMALS: mental status grossly normal Data 10/09/24 02:53 10/09/24 02:53 Micro: Microbiology 10/08/24 16:11 Gram Stain - Final Pleural Fluid Body Fluid Culture - Preliminary 10/09/24 08:42 Blood Culture - Preliminary Blood SPECIMEN COLLECTED 10/09/24 08:40 Blood Culture - Preliminary Blood SPECIMEN COLLECTED A&P Assessment and plan (1) (HFpEF) heart failure with preserved ejection fraction: (2) CHF exacerbation: (3) Mitral valve stenosis, moderate: (4) Atrial fibrillation with rapid ventricular response: (5) Aortic stenosis: (6) Pulmonary embolism: (7) Right-sided chest wall pain: (8) Parapneumonic effusion: (9) Empyema: (10) Right lower lobe pneumonia: (11) Pneumonia: (12) Pneumothorax: Plan A-fib with RVR - Currently on p.o. Cardizem - Continue p.o. amiodarone - Hold Eliquis - Currently on therapeutic Lovenox Right recurrent complicated parapneumonic effusion -Concerns for possible empyema -CT shows moderate to large right-sided pleural effusion associate with significant attic lactic cyst and volume loss, right lower lobe CT chest CT/[place] [id number] IMPRESSION: 1. Moderate to large right-sided pleural effusion associated with significant atelectasis in volume loss in the right lower lobe. Moderate volume loss in the right middle lobe. 2. No other acute findings in the chest. 3. Extensive annular mitral valve calcifications. -Exudative by lights criteria, serum total protein 6, serum LDH 194, pleural total protein 3, pleural LDH 148, glucose 87, pH 7, 139 white blood cells, cloudy, 1 L removed, fluid described as bloody -So far Gram stain shows WBCs, no organisms -Does have elevated lipase, no radiographic evidence of pancreatitis, no abdominal ascites Plan -Continue Rocephin -Continue Zithromycin -Follow-up pleural studies, cultures, so far no growth - Eliquis on hold -Continue therapeutic Lovenox - Follow chest x-ray - Patient has been accepted at [facility], for CT surgery evaluation/pulm reevaluation, for concerns for complicated parapneumonic effusion Right lower lobe pneumonia - Follow blood cultures - Continue chest x-ray monitoring - Rocephin - Azithromycin Right apical pneumothorax - Chest postthoracentesis - Repeat chest x-rays with no significant radiographic evidence - Will continue to monitor via chest x-ray Diastolic CHF exacerbation -Lasix 40 IV twice daily, have been stopped as patient appears euvolemic -BNP 2000 - Fluid restrictions of 1000 cc Had a barium swallow 10/07/2024 Findings: The patient swallowed the air and barium mixture and it flowed normally through the hypopharynx. No fistula, erosion, polyp, mass, obstruction, aspiration or penetration was seen. The barium proceeded into the esophagus. There was normal motility and flow. No hiatal hernia, reflux, mass, polyp, erosion, ulceration, polyp or mass was seen. The barium flowed normally into the esophagus. Aortic valve stenosis Mitral valve stenosis History of pulmonary embolism, on Eliquis, held, therapeutic Lovenox History of left atrial thrombus History of Graves' disease, continue methimazole Elevated lipase, does have some epigastric discomfort, now resolved, CT abdomen and pelvis no radiographic evidence of pancreatitis CT scan shows nonobstructing stone in the lower collecting system of the left kidney measuring 7.5 mm - No KYLE - Will continue to monitor renal function closely - UA within normal limits - Strain urine Chest pain, serial EKGs, serial troponins, telemetry monitoring, aspirin, statin Plan for today, continue IV antibiotics, monitor heart rates, diuresis on hold, working on transfer to [facility] for CT surgery/pulmonary evaluation PDMP PDMP Reviewed: Not Reviewed Attestations 2 Medical Necessity Statement*: Patient requires hospitalization for complicated parapneumonic effusion requiring transfer to tertiary level center, pneumonia Diagnoses (HFpEF) heart failure with preserved ejection fraction I50.30 CHF exacerbation I50.9 Mitral valve stenosis, moderate I05.0 Atrial fibrillation with rapid ventricular response I48.91 Aortic stenosis I35.0 Pulmonary embolism I26.99 Right-sided chest wall pain R07.89 Parapneumonic effusion J18.9; J91.8 Empyema J86.9 Right lower lobe pneumonia J18.9 Pneumonia J18.9 Pneumothorax J93.9
--- NOTE | 2024-10-09 15:58 | PC.SOCIAL ---
IMM updated IMM dated and initialed copy given to patient and Copy placed in chart.
--- NOTE | 2024-10-09 16:44 | P.TS_ITS ---
Transfer Summary Providers Date of Admission: 10/07/24 22:00 Date of Discharge/Transfer: 10/09/24 Attending Provider at Admission: Sylvain Nash MD Attending Provider at Transfer: Sylvain Nash MD Primary Care Provider: David John MD Transfer Plans: Anticipated date of transfer: 10/09/24 . Diagnoses at Discharge Discharge Diagnosis (1) (HFpEF) heart failure with preserved ejection fraction: Status: Acute (2) CHF exacerbation: Status: Acute (3) Mitral valve stenosis, moderate: Status: Acute (4) Atrial fibrillation with rapid ventricular response: Status: Acute (5) Aortic stenosis: Status: Acute (6) Pulmonary embolism: Status: Acute (7) Right-sided chest wall pain: Status: Acute (8) Parapneumonic effusion: Status: Acute (9) Empyema: Status: Acute (10) Right lower lobe pneumonia: Status: Acute (11) Pneumonia: Status: Acute (12) Pneumothorax: Status: Acute Reason for Visit Reason for Visit SOB, Rapid Hospital Course Hospital Course Carolina Lockhart is a 74 year old female with a past medical history of Graves' disease, atrial fibrillation on Eliquis, history of fluid overload who presents [facility] due to shortness of breath, lower extreme edema, patient reports of increased shortness of breath recently, increased lower extreme edema, she had a barium swallow today, she denies any choking or coughing after her barium swallow, results were within normal limits but reported increased shortness of breath thereafter, also reported anterior chest discomfort, no nausea, no vomiting, no hemoptysis, currently in A-fib with RVR heart rates in the 130s, Cardizem drip to be started Patient was admitted to [facility] for A-fib with RVR, initially managed with Cardizem drip, transitioned to p.o. Cardizem, heart rates are under control with p.o. Cardizem, currently on therapeutic Lovenox Diastolic CHF exacerbation requiring IV diuresis, BNP down to 2000, appears more euvolemic today hold off on further diuresis History of aortic stenosis, mitral valve stenosis Right lower lobe pneumonia, on IV antibiotics Right apical pneumothorax status post thoracentesis, repeat chest x-ray no recurrence of pneumothorax this morning Patient's hospitalization was complicated by Right recurrent complicated parapneumonic effusion -Concerns for possible empyema -CT shows moderate to large right-sided pleural effusion associate with significant attic lactic cyst and volume loss, right lower lobe CT chest CT/[place] [id number] IMPRESSION: 1. Moderate to large right-sided pleural effusion associated with significant atelectasis in volume loss in the right lower lobe. Moderate volume loss in the right middle lobe. 2. No other acute findings in the chest. 3. Extensive annular mitral valve calcifications. -Exudative by lights criteria, serum total protein 6, serum LDH 194, pleural total protein 3, pleural LDH 148, glucose 87, pH 7, 139 white blood cells, cloudy, 1 L removed, fluid described as bloody -So far Gram stain shows WBCs, no organisms -Does have elevated lipase, no radiographic evidence of pancreatitis, no abdominal ascites Plan -Continue Rocephin -Continue Zithromycin -Follow-up pleural studies, cultures, so far no growth - Eliquis on hold -Continue therapeutic Lovenox - Follow chest x-ray - Patient has been accepted at [facility], for CT surgery evaluation/pulm reevaluation, for concerns for complicated parapneumonic effusion Physical Exam Const: COMMON NORMALS: no acute distress and patient oriented x3 Resp: COMMON NORMALS: normal respiratory effort, No retractions, No use of accessory muscles and clear to auscultation bilaterally AUSCULTATION: clear to auscultation bilaterally Cardio: COMMON NORMALS: regular rate, regular rhythm, S1 normal heart sound present and S2 normal heart sound present RATE: regular rate RHYTHM: regular rhythm HEART SOUNDS: S1 normal heart sound present and S2 normal heart sound present GI: COMMON NORMALS: Normal to inspection, nondistended, normoactive bowel sounds present and non-tender Extremity: COMMON NORMALS: no pedal edema Neuro: COMMON NORMALS: patient oriented x3 Psych: COMMON NORMALS: mental status grossly normal TS Data Studies Completed and Pending Pending at discharge Category Date Time Status Amylase, Pleural Fluid Routine Lab 10/07/24 21:53 Received PAO Profile Rheumatology Stat Lab 10/09/24 16:26 Received Basic Metabolic Panel AM LABS Lab 10/10/24 04:00 Ordered Blood Culture Stat Lab 10/09/24 08:42 Results Body Fluid Culture & GS Routine Lab 10/07/24 21:53 Results Complete Blood Count w/Auto AM LABS Lab 10/10/24 04:00 Ordered Mycobacteria, Culture w/Fluor Routine Lab 10/07/24 21:53 Received US soft tissue head neck [id number] Routine Ultrasound 10/09/24 13:26 Ordered Completed Studies During Hospitalization Category [place] [id number] Stat Cat Scan 10/07/24 17:28 Completed CXRP [XR chest 1V portable [id number]] Stat Exams 10/08/24 12:19 Completed XR chest 1V portable [id number] Routine Exams 10/08/24 11:26 Completed XR chest 1V portable [id number] Routine Exams 10/08/24 21:00 Completed XR chest 1V portable [id number] Routine Exams 10/09/24 07:00 Completed XR chest 1V portable [id number] Stat Exams 10/07/24 14:23 Completed US thoracentesis [id number] Stat Ultrasound 10/08/24 17:33 Completed Laboratory Last Values WBC 5.57 10^3/uL (3.29-11.43) 10/09/24 02:53 RBC 3.75 10^6/uL (3.85-5.65) L 10/09/24 02:53 Hgb 10.10 g/dL (11.27-16.99) L 10/09/24 02:53 Hct 32.8 % (36-47) L 10/09/24 02:53 MCV 87.5 fl (85-98) 10/09/24 02:53 MCH 26.9 pg (27-33) L 10/09/24 02:53 MCHC 30.8 g/dL (30-55) 10/09/24 02:53 RDW 15.7 % (12.1-15.1) H 10/09/24 02:53 Plt Count 284 10^3/cmm (157-399) 10/09/24 02:53 MPV 9.5 fL (7.4-10.4) 10/09/24 02:53 Neut % (Auto) 75.8 % 10/09/24 02:53 Lymph % (Auto) 11.8 % 10/09/24 02:53 [place] % (Auto) 10.4 % 10/09/24 02:53 Eos % (Auto) 0.0 % 10/09/24 02:53 Baso % (Auto) 1.6 % 10/09/24 02:53 Neut # (Auto) 4.22 10^3/uL (1.8-7.7) 10/09/24 02:53 Lymph # (Auto) 0.7 10^3/uL (0.8-4.8) L 10/09/24 02:53 [place] # (Auto) 0.6 10^3/uL (0.2-0.9) 10/09/24 02:53 Eos # (Auto) 0.0 10^3/uL (0.0-0.8) 10/09/24 02:53 Baso # (Auto) 0.1 10^3/uL (0.0-0.1) 10/09/24 02:53 Nucleated RBC % (auto) 0 % 10/09/24 02:53 Nucleated RBCs # 0.0 /100WBC 10/09/24 02:53 Differential Comment Yes 10/08/24 11:04 ESR 32 mm/hr (0-15) H 10/07/24 15:25 PT 19.00 SECONDS (12.1-14.9) H 10/08/24 06:14 INR 1.50 (0.8-1.2) H 10/08/24 06:14 Sodium 136 mmol/L (136-145) 10/09/24 02:53 Potassium 3.9 mmol/L (3.5-5.1) 10/09/24 02:53 Chloride 99 mmol/L (98-107) 10/09/24 02:53 Carbon Dioxide 30 mmol/L (22-29) H 10/09/24 02:53 Anion Gap 10.9 (5-19) 10/09/24 02:53 BUN 14 mg/dL (8-23) 10/09/24 02:53 Creatinine 1.5 mg/dL (0.5-0.9) H 10/09/24 02:53 GFR Calculation Not Reportable 10/09/24 02:53 Glucose 122 mg/dL (65-115) H 10/09/24 02:53 Calculated Osmolality 284 mOsm/kg (285-295) L 10/09/24 02:53 Calcium 7.6 mg/dL (8.5-10.5) L 10/09/24 02:53 Magnesium 2.0 mg/dL (1.7-2.3) 10/09/24 02:53 Total Bilirubin 0.4 mg/dL (0.15-1.2) 10/07/24 15:25 AST 27 U/L (0-32) 10/07/24 15:25 ALT 14 U/L (0-33) 10/07/24 15:25 Alkaline Phosphatase 128 U/L (35-105) H 10/07/24 15:25 Lactate Dehydrogenase 194 U/L (135-214) 10/09/24 11:53 Troponin T Baseline 23 ng/L (0-10) H 10/07/24 15:25 Troponin T 120 Minute 22.01 ng/L (0-10) H 10/07/24 17:41 Delta Troponin T -0.99 ABS# (0-10) L 10/07/24 17:41 Troponin T Hi Sens 6Hr 24.16 ng/L (0-10) H 10/07/24 21:20 Troponin T Hi Sens 6Hr Delta 1.16 ng/L (0-12) 10/07/24 21:20 C-Reactive Protein 21.6 mg/L (0.0-4.9) H 10/09/24 08:42 NT-Pro-B Natriuret Pep 2384 pg/mL (0-450) H 10/09/24 08:42 Total Protein 6.0 g/dL (6.6-8.7) L 10/07/24 15:25 Albumin 2.9 g/dL (3.5-5.2) L 10/07/24 15:25 Globulin 3.1 g/dL (1.3-4.6) 10/07/24 15:25 Lipase 277 U/L (13-60) H 10/08/24 06:14 Procalcitonin 0.09 ng/mL (0-0.5) 10/09/24 08:42 TSH 3.82 uIU/mL (0.27-4.20) 10/07/24 15:25 Free T4 1.07 ng/dL (0.82-1.77) 10/07/24 15: Free T3 1.9 PG/ML (2.0-4.4) L 10/07/24 15:25 Urine Color Yellow (Yellow) 10/07/24 22:23 Urine Appearance Clear (CLEAR) 10/07/24 22:23 Urine pH 7.0 (5-7) 10/07/24 22:23 Ur Specific [place] 1.006 (1.005-1.030) 10/07/24 22:23 Urine Protein Negative (Negative) 10/07/24 22:23 Urine Glucose (UA) Negative (Normal) 10/07/24 22:23 Urine Ketones Negative (Negative) 10/07/24 22:23 Urine Blood Negative (Negative) 10/07/24 22:23 Urine Nitrate Negative (Negative) 10/07/24 22:23 Urine Bilirubin Negative (Negative) 10/07/24 22:23 Urine Urobilinogen 0.2 mg/dL (Negative) 10/07/24 22:23 Ur Leukocyte Esterase Negative (Negative) 10/07/24 22:23 Urine RBC 0-2 /hpf (0-2) 10/07/24 22:23 Urine WBC 0-5 /hpf (0-5) 10/07/24 22:23 Ur Squamous Epith Cells 0-5 /hpf (0-5) 10/07/24 22:23 Amorphous Sediment Not Reportable 10/07/24 22:23 Urine Bacteria None seen /hpf (NONE) 10/07/24 22:23 Hyaline Casts 1.65 /lpf 10/07/24 22:23 Fluid Color 10/08/24 11:04 Fluid Appearance Cloudy 10/08/24 11:04 Fluid WBC 139 /uL 10/08/24 11:04 Fluid RBC 12.000 10^3/uL 10/08/24 11:04 Fluid Hematocrit 0.1 % 10/08/24 11:04 Fld Polynuclear WBCs # 0.022 10/08/24 11:04 Fld Polynuclear WBCs % 15.800 % 10/08/24 11:04 Fl Mononucl WBCs #(Auto) 0.117 10/08/24 11:04 Fl Mononuclear % Auto 84.200 % 10/08/24 11:04 Fld Crystal Laterality Not Reportable 10/08/24 11:04 Fluid Albumin 1.8 g/dL 10/08/24 11:04 Fluid Creatinine 1.26 (0.5-0.9) H 10/08/24 11:04 Pleural pH 7.00 (6.5-7.5) 10/08/24 11:04 Pleural Total Protein 3.0 g/dL 10/08/24 11:04 Pleural LDH 148 U/L 10/08/24 11:04 Pleural Glucose 87.0 mg/dL 10/08/24 11:04 Pleural Triglycerides 35 mg/dL 10/08/24 11:04 Radiology Impressions Chest/Abdomen/Pelvis CT 10/07/24 17:28 IMPRESSION: 1. Moderate to large right-sided pleural effusion associated with significant atelectasis in volume loss in the right lower lobe. Moderate volume loss in the right middle lobe. 2. No other acute findings in the chest. 3. Extensive annular mitral valve calcifications. IMPRESSION: 1. No acute findings in the abdomen or pelvis. 2. Nonobstructing stone in the lower collecting system of the left kidney measuring 7.5 mm. 3. Evaluation of the colon is somewhat limited by presence of artifact from oral contrast, possibly barium. Thoracentesis Ultrasound 10/08/24 17:33 IMPRESSION: 1. Uncomplicated ultrasound-guided RIGHT thoracentesis. 2. Removal of 1000 cc bloody fluid 3. No pneumothorax. Chest X-Ray 10/09/24 07:00 Impression: 1. No change in right lower lobe opacity. 2. Atherosclerosis. Recent Clincial Data Last Vital Signs Temp 98.0 F 10/09/24 16:00 Pulse 102 H 10/09/24 16:00 Resp 24 H 10/09/24 16:00 BP 111/70 10/09/24 16:00 Pulse Ox 91 10/09/24 12:00 O2 Del Method Room Air 10/09/24 12:00 O2 Flow Rate 2 10/08/24 06:29 Vital Signs Temp Pulse Resp BP Pulse Ox O2 Del Method 10/09/24 16:00 98.0 F 102 H 24 H 111/70 10/09/24 12:00 98.0 F 102 H 19 H 105/48 91 Room Air 10/09/24 08:35 92 18 96 Room Air 10/09/24 08:00 97.8 F 103 H 23 H 106/74 97 Room Air 10/09/24 06:38 92 15 103/67 94 10/09/24 04:52 107 H Intake & Output/Weight 10/07/24 10/08/24 10/09/24 10/10/24 06:59 06:59 06:59 06:59 Intake Total 4 / 4 1550.792 / 1550.792 570.000 / 570.000 Output Total 300 / 300 900 / 900 Balance -296 / -296 650.792 / 650.792 570.000 / 570.000 Weight 83.915 kg Vitals Last Vital Signs Temp 98.0 F 10/09/24 16:00 Pulse 102 H 10/09/24 16:00 Resp 24 H 10/09/24 16:00 BP 111/70 10/09/24 16:00 Pulse Ox 91 10/09/24 12:00 O2 Del Method Room Air 10/09/24 12:00 O2 Flow Rate 2 10/08/24 06:29 TS Medications Medications Acetaminophen (Acetaminophen 325 Mg Tablet) 650 mg PO Q6H PRN PRN Reason: Mild/Mod Pain Or Temp >/= 101 Last Admin: 10/08/24 20:56 Dose: 650 mg Albuterol/Ipratropium (Ipratropium-Albuterol 3 Ml Neb) 3 ml INHALATION Q6H PRN PRN Reason: SHORTNESS OF BREATH Amiodarone HCl (Amiodarone 200 Mg Tablet) 200 mg PO DAILY MAME Last Admin: 10/09/24 08:00 Dose: 200 mg Aspirin (Aspirin 81 Mg Ec Tablet) 81 mg PO DAILY MAME Atorvastatin Calcium (Atorvastatin 40 Mg Tablet) 40 mg PO BEDTIME MAME Last Admin: 10/08/24 20:56 Dose: 40 mg Ceftriaxone Sodium (Ceftriaxone 1,000 Mg Sdv) 1,000 mg IVP Q12H MAME; Protocol Last Admin: 10/09/24 08:01 Dose: 1,000 mg Diltiazem HCl (Diltiazem 60 Mg Tablet) 60 mg PO Q6H MAME Last Admin: 10/09/24 11:03 Dose: 60 mg Enoxaparin Sodium (Enoxaparin 80 Mg/0.8 Ml Syringe) 80 mg SUBCUT Q24H MAME Diltiazem HCl 100 mg/ Sodium (Chloride) 100 mls @ 0 mls/hr IV .Q0M MAME; Protocol Last Titration: 10/08/24 13:35 Dose: Infused Azithromycin 500 mg/ Sodium (Chloride) 250 mls @ 250 mls/hr IV Q24H MAME; Protocol Last Infusion: 10/09/24 09:55 Dose: Infused Methimazole (Methimazole 5 Mg Tablet) 10 mg PO DAILY [facility] Last Admin: 10/09/24 08:00 Dose: 10 mg Morphine Sulfate (Morphine 4 Mg/Ml Sdv 1 Ml) 1 mg IVP Q4H PRN PRN Reason: SEVERE PAIN Naloxone HCl (Naloxone 0.4 Mg/Ml Sdv) 0.1 mg IVP Q2M PRN PRN Reason: OPIATERV Ondansetron HCl (Ondansetron 2 Mg/Ml Sdv 2 Ml) 4 mg IVP Q8H PRN PRN Reason: vomiting, or N/V if npo Pantoprazole Sodium (Pantoprazole 40 Mg Sdv) 40 mg IVP Q24H [facility] Last Admin: 10/08/24 20:57 Dose: 40 mg Tamsulosin HCl (Tamsulosin 0.4 Mg Capsule) 0.4 mg PO DAILY [facility] Last Admin: 10/09/24 08:00 Dose: 0.4 mg Tramadol HCl (Tramadol 50 Mg Tablet) 50 mg PO Q6H PRN PRN Reason: MODERATE PAIN Last Admin: 10/08/24 23:14 Dose: 50 mg Discontinued Medications Albuterol Sulfate (Albuterol 2.5 Mg/0.5 Ml Neb) 2.5 mg INHALATION ONCE ONE Stop: 10/07/24 14:54 Last Admin: 10/07/24 16:12 Dose: 2.5 mg Aspirin (Aspirin 81 Mg Chew Tablet) 324 mg PO NOW ONE Stop: 10/07/24 17:07 Last Admin: 10/07/24 18:21 Dose: 324 mg Aspirin (Aspirin 81 Mg Ec Tablet) 81 mg PO DAILY [facility] Last Admin: 10/08/24 10:15 Dose: Not Given Digoxin (Digoxin 250 Mcg/Ml Inj 2 Ml) 500 mcg IVP NOW ONE Stop: 10/09/24 04:26 Last Admin: 10/09/24 04:49 Dose: 500 mcg Diltiazem HCl (Diltiazem 5 Mg/Ml Sdv 5 Ml) 10 mg IVP ONCE ONE Stop: 10/07/24 14:54 Last Admin: 10/07/24 15:27 Dose: 10 mg Enoxaparin Sodium (Enoxaparin 100 Mg/Ml Syringe) 80 mg 1 mg/kg (80 mg) SUBCUT Q12H [facility] Last Admin: 10/07/24 22:16 Dose: 80 mg Enoxaparin Sodium (Enoxaparin 80 Mg/0.8 Ml Syringe) 80 mg SUBCUT Q12H [facility] Last Admin: 10/09/24 04:51 Dose: 80 mg Furosemide (Furosemide 10 Mg/Ml Sdv 4ml) 40 mg IVP ONCE ONE Stop: 10/07/24 14:54 Last Admin: 10/07/24 15:27 Dose: 40 mg Furosemide (Furosemide 10 Mg/Ml Sdv 4ml) 40 mg IVP Q12H [facility] Last Admin: 10/09/24 06:40 Dose: Not Given Sodium Chloride (Sodium Chloride 0.9%) 500 mls @ 999 mls/hr IV .Q31M ONE Stop: 10/08/24 23:49 Last Infusion: 10/09/24 00:39 Dose: Infused Calcium Gluconate/Sodium Chloride (Calcium Gluconate 0.9% Nacl) 1 gm in 50 mls @ 100 mls/hr IV Q30M MAME Stop: 10/09/24 06:59 Last Infusion: 10/09/24 08:51 Dose: Infused Allergies clarithromycin Allergy (Verified 09/29/24 13:33) ADR-Abdominal Pain codeine Allergy (Verified 09/29/24 13:33) ADR-Abdominal Pain cyclobenzaprine Allergy (Verified 09/29/24 13:33) ADR-Cramping of the Muscles dexlansoprazole (From Dexilant) Allergy (Verified 09/29/24 13:33) ADR-Back Pain doxycycline Allergy (Verified 09/29/24 13:33) ALGY-Rash duloxetine (From Cymbalta) Allergy (Verified 09/29/24 13:33) ADR-Abdominal Pain green tea Allergy (Verified 09/29/24 13:33) ADR-Abdominal Pain omeprazole Allergy (Verified 09/29/24 13:33) ADR-Abdominal Pain ranitidine Allergy (Verified 09/29/24 13:33) ADR-Abdominal Pain Home Medications albuterol sulfate 90 mcg/actuation aerosol inhaler (Ventolin HFA) 2 puff inhalation Q6H PRN shortness of breath or wheezing #6.7 grams 04/28/21 [Rx Confirmed 10/08/24] apixaban 5 mg tablet (Eliquis) 5 mg PO BID 08/23/24 [History Confirmed 10/08/24] amiodarone 200 mg tablet 200 mg PO DAILY #60 tabs 08/27/24 [Rx Confirmed 10/08/24] furosemide 40 mg tablet (Lasix) 40 mg PO DAILY PRN Edema 09/29/24 [History Confirmed 10/08/24] Discharge Plan Discharge Patient Disposition: Home Condition: Stable Prescriptions: No Action albuterol sulfate [Ventolin HFA] 90 mcg/actuation HFA aerosol inhaler 2 puff inhalation Q6H PRN (Reason: shortness of breath or wheezing) Qty: 6.7 0RF furosemide [Lasix] 40 mg tablet 40 mg PO DAILY PRN (Reason: Edema) Eliquis 5 mg tablet 5 mg PO BID amiodarone 200 mg tablet 200 mg PO DAILY Qty: 60 0RF Rx Instructions: Bid for 7 days, then daily Discharge Orders: Discharge Order (Routine); Ordered 10/09/24 Ordered By: Sylvain Nash Referrals: David John MD [Primary Care Provider, [facility]] - 10/15/24 8:00 am Patient Instructions: Opioid Safety Transfer Attestations Time Spent in Transfer Care: greater than 30 min Status at Transfer: Cognitive status at transfer: cognitively intact ; Behavioral status at transfer: cooperative ; Quality Metrics Clinical Quality Measures [ No reported AMI, CVA or VTE this stay] Coding Level of Care Code Acute Code for Chg Fwd Diagnoses (HFpEF) heart failure with preserved ejection fraction I50.30 CHF exacerbation I50.9 Mitral valve stenosis, moderate I05.0 Atrial fibrillation with rapid ventricular response I48.91 Aortic stenosis I35.0 Pulmonary embolism I26.99 Right-sided chest wall pain R07.89 Parapneumonic effusion J18.9; J91.8 Empyema J86.9 Right lower lobe pneumonia J18.9 Pneumonia J18.9 Pneumothorax J93.9
[2024-10-09] MEDS: aspirin 81 mg EC Tablet PO (17:33)
--- NOTE | 2024-10-09 17:44 | PC.NURSE ---
Patient transfered to [facility]. Report called to DEMOND Kilgore. Instructed patient on need for transfer. Patient verbalized complete understanding.
== END 2024-10-09 18:07 | disposition short-term general hospital (02) | DRG 292 ==
LOC: ER 17:22 → ER IP 18:50 → CSU 10-08 09:50
PROVIDERS: Internal Medicine; Radiology Neuroradiology; Admitting Provider Family Medicine; Emergency Provider Emergency Medicine; PCP Family Medicine; Visit Provider Family Medicine
DX: I50.33 Acute on chronic diastolic (congestive) heart failure (principal); J90 Pleural effusion, not elsewhere classified; J95.811 Postprocedural pneumothorax; N18.9 Chronic kidney disease, unspecified; I08.3 Combined rheumatic disorders of mitral, aortic and tricuspid valves; I48.91 Unspecified atrial fibrillation; J45.909 Unspecified asthma, uncomplicated; I27.20 Pulmonary hypertension, unspecified; H81.10 Benign paroxysmal vertigo, unspecified ear; F41.9 Anxiety disorder, unspecified; R00.0 Tachycardia, unspecified; Z79.82 Long term (current) use of aspirin; Z79.01 Long term (current) use of anticoagulants; Z87.442 Personal history of urinary calculi; Z87.891 Personal history of nicotine dependence
CPT/HCPCS: 12345; 32555; 36415; 71045; 71250; 74176; 76536; 80048; 80053; 80503; 81001; 82042; 82150; 82570; 82945; 83615; 83690; 83735; 83880; 83986; 84145; 84157; 84439; 84443; 84478; 84481; 84484; 85014; 85025; 85610; 85651; 86140; 86160; 86162; 86235; 86255; 86376; 87015; 87040; 87070; 87075; 87116; 87205; 87206; 87801; 89050; 93005; 94640; 94664; 96365; 96366; 96372; 96375; 96376; 99285; G0378; J0456; J0612; J0696; J1160; J1650; J1938; J2470; J3490; J7040; J7050; J7611; J9999

== ENCOUNTER 2024-10-27 14:52 | Outpatient (CLI) | payer MEDICARE, BC, SELFPAY ==
--- NOTE | 2024-10-27 14:56 | XRR_ITS ---
PROCEDURE INFORMATION: Exam: XR Chest Exam date and time: 10/27/2024 3:13 PM Age: 74 years old Clinical indication: Prior surgery; Surgery date: 6+ months; Surgery type: Gb, appy, thoracentesis; Hospitalized x few days ago for pneumonia. Shortness of breath w/ walking. ; Additional info: Pleural effusion TECHNIQUE: Imaging protocol: Radiologic exam of the chest. Views: 2 views. COMPARISON: CR XR chest 1V portable [id number] 10/09/2024 8:13 AM FINDINGS: Lungs: Decreased pneumonitis and atelectasis right lower lung. No other pulmonary abnormalities. Pleural spaces: Decreased small right pleural effusion. No left pleural effusion. No pneumothorax. Heart/Mediastinum: Unremarkable. No cardiomegaly. Bones/joints: Nothing acute. No change. XR/XR chest 2V* [id number] IMPRESSION: 1. Decreased pneumonitis and atelectasis right lower lung. 2. Decreased small right pleural effusion.
== END 2024-10-27 14:53 | disposition home or self-care (01) ==
LOC: RAD 14:54
PROVIDERS: PCP Family Medicine; Visit Provider Family Medicine
DX: J18.9 Pneumonia, unspecified organism (principal); J91.8 Pleural effusion in other conditions classified elsewhere; J98.4 Other disorders of lung; J98.11 Atelectasis; J90 Pleural effusion, not elsewhere classified
CPT/HCPCS: 71046; 80053; 85025

== ENCOUNTER → 2024-11-26 11:42 | Outpatient (BNVA) | payer MEDICARE, BC, SELFPAY | PROVIDERS: PCP Family Medicine; Visit Provider Family Medicine | DX: I50.9 Heart failure, unspecified (principal) | CPT/HCPCS: 80048 ==

== ENCOUNTER → 2024-12-03 11:12 | Outpatient (BNVA) | payer MEDICARE, BC, SELFPAY | PROVIDERS: PCP Family Medicine; Visit Provider Family Medicine | DX: E06.9 Thyroiditis, unspecified (principal); Z09 Encounter for follow-up examination after completed treatment for conditions other than malignant neoplasm; E05.90 Thyrotoxicosis, unspecified without thyrotoxic crisis or storm; R94.6 Abnormal results of thyroid function studies | CPT/HCPCS: 84439; 84443; 84480 ==

== ENCOUNTER 2024-12-15 14:21 | Outpatient (CLI) | payer MEDICARE, BC, SELFPAY ==
--- NOTE | 2024-12-15 14:29 | XRR_ITS ---
PROCEDURE INFORMATION: Exam: XR Chest Exam date and time: 12/15/2024 3:00 PM Age: 74 years old Clinical indication: Shortness of breath; Prior surgery; Surgery date: 6+ months; Surgery type: Gb, appy, thoracentesis; Follow up fluid on RT lung x 2 months ago. PT states she is still SOB. ; Additional info: F/u on fluid in right lung TECHNIQUE: Imaging protocol: Radiologic exam of the chest. Views: 2 views. COMPARISON: CR XR chest 2V* [id number] 10/27/2024 3:13 PM FINDINGS: Lungs: Right lower lung pulmonary opacity/consolidation is slightly increased. Pleural spaces: Small right pleural effusion may be slightly larger. There is small loculated pleural fluid in the right minor fissure. Heart/Mediastinum: Unremarkable. No cardiomegaly. Bones/joints: Unremarkable. XR/XR chest 2V* [id number] IMPRESSION: Pleural-parenchymal opacities on the right which are slightly increased.
== END 2024-12-15 14:22 | disposition home or self-care (01) ==
LOC: RAD 14:24
PROVIDERS: PCP Family Medicine; Visit Provider Family Medicine
DX: J86.9 Pyothorax without fistula (principal); J90 Pleural effusion, not elsewhere classified
CPT/HCPCS: 71046

== ENCOUNTER → 2024-12-28 15:11 | Outpatient (BNVA) | payer MEDICARE, BC, SELFPAY | PROVIDERS: PCP Family Medicine; Visit Provider Internal Medicine Cardiovascular Disease | DX: I11.0 Hypertensive heart disease with heart failure (principal); I50.30 Unspecified diastolic (congestive) heart failure; I48.20 Chronic atrial fibrillation, unspecified; Z79.01 Long term (current) use of anticoagulants; I35.0 Nonrheumatic aortic (valve) stenosis; I08.1 Rheumatic disorders of both mitral and tricuspid valves; I20.0 Unstable angina; Z01.818 Encounter for other preprocedural examination; I50.9 Heart failure, unspecified; I48.91 Unspecified atrial fibrillation | CPT/HCPCS: 99214 ==